=== PATIENT | female | born 1970 | race Caucasian/White ===

== ENCOUNTER 2022-01-23 09:36 | Emergency (ER) | payer OTHER, SELFPAY ==
[2022-01-23] VITALS (9 sets, daily range): BP systolic 132–167; BP diastolic 72–103; PULSE 75–107; RESP 14–20; TEMP 36.6–37.6; O2SAT 97–100; BMI 17.7
--- NOTE | ~2022-01-23 | MR_ITS ---
EXAMINATION: MR CERVICAL SPINE WITHOUT AND WITH CONTRAST CLINICAL INFORMATION: IV drug abuse. Neck pain. COMPARISON: None TECHNIQUE: MRI of the cervical spine was obtained using routine sequences without and following the administration of 5 mL of Gadavist intravenous contrast. FINDINGS: Moderately motion degraded exam. Mild reversal the normal cervical lordosis centered on C4-C5. Mild degenerative anterolistheses of C3 on C4 and C4 on C5. Mild degenerative retrolisthesis of C6 on C7. Advanced degenerative disc disease at C5-C6 and C6-C7. Moderate degenerative disc disease at C3-C4, C4-C5, and C7-T1. Associated mixed Modic type discogenic endplate changes including mild Modic type I discogenic edema from C4-C7. Moderate edema within the right-sided C2-C3 facets. Mild marrow edema within the C6-C7 facets consistent with degenerative stress reaction. No additional suspicious marrow edema. The vertebral body heights are largely maintained. There is circumferential expansion of the epidural space from the level of C1-C5, predominantly in the right lateral aspect. The majority of this expansion enhances although there is a degree of central nonenhancement in the right ventral/lateral aspect of the spinal canal at the level of C1-C2 suggestive of early epidural abscess formation. No demonstrated overt spinal cord signal abnormalities. Moderate soft tissue edema and enhancement in the posterior soft tissues of the neck from the occiput to the level of C4. Limited evaluation of the remainder of the soft tissues of the neck without additional demonstrated abnormalities. The flow voids of the major cervical vessels are maintained. Normal appearance of the cervicomedullary junction and visualized posterior fossa. SPINAL LEVELS: C2-C3: Mild disc-osteophyte complex. There is mild bilateral uncovertebral joint arthropathy. There is moderate bilateral facet joint arthropathy. There is mild bilateral neural foraminal stenosis. There is moderate spinal canal stenosis. C3-C4: Moderate disc-osteophyte complex. There is moderate bilateral uncovertebral joint arthropathy. There is severe right and moderate left facet joint arthropathy. There is moderate right and mild left neural foraminal stenosis. There is moderate spinal canal stenosis. C4-C5: Moderate disc-osteophyte complex. There is severe right and moderate left uncovertebral joint arthropathy. There is moderate bilateral facet joint arthropathy. There is severe right and moderate left neural foraminal stenosis. There is mild spinal canal stenosis. C5-C6: Moderate disc-osteophyte complex. There is severe left and moderate right uncovertebral joint arthropathy. There is moderate left and mild right facet joint arthropathy. There is severe left and moderate right neural foraminal stenosis. There is no spinal canal stenosis. C6-C7: Moderate disc-osteophyte complex. There is moderate bilateral uncovertebral joint arthropathy. There is severe bilateral facet joint arthropathy. There is moderate left worse than right neural foraminal stenosis. There is no spinal canal stenosis. C7-T1: Normal annular contour. There is no uncovertebral joint arthropathy. There is moderate bilateral facet joint arthropathy. There is mild bilateral neural foraminal stenosis. There is no spinal canal stenosis. MR/MR cervical spine wo/w con IMPRESSION: 1. Epidural collection suggestive of abscess formation extending from C1-C5 (most notably in the right ventral/lateral canal at the level of C1-C2). 2. Moderate edema/enhancement within the posterior soft tissues of the neck extending from the occiput to the level of C4. No demonstrated drainable fluid collection within the soft tissues. 3. Moderate multilevel degenerative spondyloarthropathy of the cervical spine as described in detail above. Most notably, multifactorial degenerative changes and epidural expansion leads to moderate spinal canal stenosis at C2-C3 and C3-C4. Mild spinal canal stenosis at C4-C5. Moderate to severe neural foraminal stenoses from C4-C7.
--- NOTE | ~2022-01-23 | XR_ITS ---
EXAMINATION: XR CHEST CLINICAL INFORMATION: Leukocytosis, chills COMPARISON: Chest x-ray on 09/28/2015 TECHNIQUE: 2 views of the chest were obtained. FINDINGS: The cardiac silhouette is normal. There is mild diffuse bronchial wall thickening. There are no areas of consolidation. There are no pleural effusions or pneumothoraces. The bones and soft tissues are unremarkable for the patient's age. XR/XR chest 2V IMPRESSION: Bronchial wall thickening is likely infectious and/or inflammatory in etiology.
[2022-01-23 12:15] LABS: Basophils Absolute Auto 0.1 X10*3/uL (0.0-0.2); Basophils Percent Auto 0.2 % (0-2); Hematocrit 38.2 % (37.0-47.0); Hemoglobin 12.6 g/dl (12.0-16.0); Imm Gran Abs Auto 0.13 X10*3/uL (0.00-0.03); Imm Gran Pct Auto 0.5 % (0.0-0.4); Lymphocytes Absolute Auto 0.4 X10*3/uL (1.2-4.9); Lymphocytes Percent Auto 1.6 % (20-40); MANUAL DIFF FLAG SCAN; Mean Corpuscular Hemoglobin 29.2 pg (27.0-33.0); Mean Corpuscular Volume 88.4 fL (80.0-98.0); Mean Platelet Volume 9.7 fL (9.4-12.3); Monocytes Absolute Auto 0.9 X10*3/uL (0.1-1.2); Monocytes Percent Auto 3.5 % (2-11); Neutrophils Absolute Auto 23.7 x10*3/uL (2.0-8.3); Neutrophils Percent Auto 94.2 % (45-73); Platelet Count 287 X10*3/uL (160-400); Red Blood Count 4.32 X10*6/uL (4.20-5.50); Red Cell Distribution Width 12.6 % (11.0-16.0); SCAN SMEAR FLAG 1; White Blood Count 25.2 X10*3/uL (4.8-10.8)
--- NOTE | 2022-01-23 12:21 | ED_ITS ---
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 No fevers, JAMESON, weakness/numbness/tingling, photophobia of the UE. Patient uses more then I can count bags of heroin and cocaine daily. Last use last evening. She is on methadone. Denies any history of epidural abscess. Denies injecting drugs in her neck. Denies any additional medical history but has not seen a PCP in years. She is on methadone daily and received her dose today. Patient tells me she did move her bed 2 days ago and states I am wondering if I pulled something. <AMRITA Singleton Last Filed: 01/23/22 19:37> Related Data Allergies/adverse reactions: Allergies Allergy/AdvReac Type Severity Reaction Status Date / Time No Known Allergies Allergy Unverified 05/16/20 15:11 <AMRITA Singleton Last Filed: 01/23/22 19:37> Review of Systems Review of Systems: Yes all other systems are reviewed and are negative <AMRITA Singleton Last Filed: 01/23/22 19:37> Constitutional: Constitutional: Reports no additional constitutional complaints, Denies body ache(s), Denies chills, Denies fever(s), Denies headache(s) and Denies weakness <Siria Linda NP - Last Filed: 01/23/22 19:37> Eyes: Eyes: Reports no additional eye complaints and Denies change in vision <Siria Linda [employer] - Last Filed: 01/23/22 19:37> ENT: Reports system reviewed and no additional complaints, except as documented, Denies dizziness, Denies headache(s), Denies nasal congestion, Denies nasal discharge and Reports neck pain <Siria Linda [employer] - Last Filed: 01/23/22 19:37> Cardiovascular: Cardiovascular: Reports no additional cardiovascular complaints, Denies chest pain, Denies leg edema and Denies dyspnea <Siria Linda [employer] - Last Filed: 01/23/22 19:37> Respiratory: Respiratory: Reports no additional respiratory complaints, Denies cough and Denies dyspnea <Siria Linda [employer] - Last Filed: 01/23/22 19:37> Gastrointestinal: Gastrointestinal: Reports no additional gastrointestinal complaints, Denies abdominal pain, Denies diarrhea, Denies nausea and Denies vomiting <Siria Linda [employer] - Last Filed: 01/23/22 19:37> Genitourinary: Genitourinary: Reports no additional female genitourinary complaints and Denies urinary incontinence <Siria Linda [employer] - Last Filed: 01/23/22 19:37> Musculoskeletal: Musculoskeletal: Reports no additional musculoskeletal complaints, Denies back pain, Denies arthralgias, Denies joint swelling, Reports neck pain, Denies numbness and Denies tingling <Siria Linda [employer] - Last Filed: 01/23/22 19:37> Integumentary/Breasts: Skin/Breast: Reports system reviewed and no additional complaints, except as docu and Denies rash <Siria Linda [employer] - Last Filed: 01/23/22 19:37> Neurologic: Reports system reviewed and no additional complaints, except as documented, Denies dizziness, Denies headache(s), Denies numbness, Denies tingling and Denies weakness <Siria Linda NP - Last Filed: 01/23/22 19:37> PMFSH Past Medical History Attestation statement: The following information was validated with the patient. <Siria john NP - Last Filed: 01/23/22 19:37> Source: old records reviewed and nursing notes reviewed <Siria Linda NP - Last Filed: 01/23/22 19:37> Social History Social History: Social History Advance Directives: No Advance Directives Information Provided: No <Siria Linda NP - Last Filed: 01/23/22 19:37> Physical Exam ED Vital Signs: Vital Signs - 24 hr 01/23/22 10:07 01/23/22 12:35 01/23/22 13:34 Temperature 98.7 F 99.6 F Pulse Rate 107 H Respiratory Rate 17 18 16 Blood Pressure 167/103 H Pulse Oximetry 97 01/23/22 14:07 01/23/22 15:51 01/23/22 17:46 Temperature 97.8 F Pulse Rate 75 Respiratory Rate 17 18 16 Blood Pressure 132/73 Pulse Oximetry 98 01/23/22 17:55 01/23/22 18:00 01/23/22 21:38 Temperature 97.8 F Pulse Rate 86 Respiratory Rate 14 16 20 Blood Pressure 150/72 H Pulse Oximetry 100 BMI result Body Mass Index 17.7 <Siria Linda NP - Last Filed: 01/23/22 19:37> Vital Signs - 24 hr 01/23/22 10:07 01/23/22 12:35 01/23/22 13:34 Temperature 98.7 F 99.6 F Pulse Rate 107 H Respiratory Rate 17 18 16 Blood Pressure 167/103 H Pulse Oximetry 97 01/23/22 14:07 01/23/22 15:51 01/23/22 17:46 Temperature 97.8 F Pulse Rate 75 Respiratory Rate 17 18 16 Blood Pressure 132/73 Pulse Oximetry 98 01/23/22 17:55 01/23/22 18:00 01/23/22 21:38 Temperature 97.8 F Pulse Rate 86 Respiratory Rate 14 16 20 Blood Pressure 150/72 H Pulse Oximetry 100 BMI result Body Mass Index 17.7 Patient noted to be hypertensive, tachycardic. <ROZ Boss - Last Filed: 01/23/22 22:18> Appearance: Alert.? Oriented X3.? Patient appears extremely uncomfortable, screaming out, telling me she is in pain. Head: Normocephalic, atraumatic, no step-offs or deformities Eyes: Pupils equal, round and reactive to light.? Neck: Normal inspection.? Neck supple.? CVS: Normal rate pass rhythm likely sinus tachycardia. Pulses normal.? Respiratory: No respiratory distress.? Breath sounds normal.? Abdomen: Soft and nontender.? Skin: Skin warm and dry.? Normal skin color.? Normal skin turgor.? Extremities: No lower extremity edema.? No calf ttp. 5/5 strength to bilateral upper and lower extremities Back: + C-spine tenderness,painfull rom , no CVA tenderness bilaterally Neuro: Oriented X 3.? No motor deficit.? Difficult to obtain a full neurological examination secondary to patient cooperation. <Rhiannon Mas PA - Last Filed: 01/23/22 22:18> Const Other: +screaming in pain, writhing around in the bed, holding her neck <Siria Linda NP - Last Filed: 01/23/22 19:37> General: alert and ill appearing <Siria Linda NP - Last Filed: 01/23/22 19:37> Nutritional Appearance: thin <Siria Linda NP - Last Filed: 01/23/22 19:37> Orientation/consciousness: patient oriented x3 <Siria Linda NP - Last Filed: 01/23/22 19:37> Limitations: no limitations <Siria Linda NP - Last Filed: 01/23/22 19:37> HENIN Head: Yes normal to inspection <Siria Linda NP - Last Filed: 01/23/22 19:37> Ears: hearing grossly normal bilaterally and TM's normal bilaterally <Siria Linda NP - Last Filed: 01/23/22 19:37> General nose exam: Normal external nose present <Siria Linda NP - Last Filed: 01/23/22 19:37> Face and sinus: Yes normal facial exam <Siria Linda NP - Last Filed: 01/23/22 19:37> Mouth: Normal oral and palatal mucosa present <Siria Linda NP - Last Filed: 01/23/22 19:37> Teeth and gingiva: poor dentition (extensive caries) <Siria Linda NP - Last Filed: 01/23/22 19:37> Throat: Yes posterior oropharynx normal, Yes tonsils normal and Yes uvula midline <Siria Linda NP - Last Filed: 01/23/22 19:37> Eyes General: appearance normal, both eyes and all related structures <Siria Linda NP - Last Filed: 01/23/22 19:37> Pupils: Equal, round and reactive pupils present <Siria Linda NP - Last Filed: 01/23/22 19:37> Neck Other: There is no obvious swelling, redness, warmth or abscess seen on the skin There is moderate tenderness to the cervical spine with no palpable step offs or deformities. To the right of the cervical spine there is tenderness to the soft tissue area. There is limited ROM d/t pain especially with flexion and extension of the neck. Negative kernig. Unable to assess brudzinski d/t pain <Siria Linda NP - Last Filed: 01/23/22 19:37> Neck: Yes normal visual inspection <Siria Linda NP - Last Filed: 01/23/22 19:37> Chest Chest palpation & inspection: normal inspection of the chest <Siria Linda NP - Last Filed: 01/23/22 19:37> Resp Effort & Inspection: normal respiratory effort <Siria Linda NP - Last Filed: 01/23/22 19:37> Auscultation: clear to auscultation bilaterally <Siria Linda NP - Last Filed: 01/23/22 19:37> Cardio Rate: regular rate <Siria Linda NP - Last Filed: 01/23/22 19:37> Rhythm: regular rhythm <Siria Linda NP - Last Filed: 01/23/22 19:37> Peripheral pulses: Peripheral pulses 2+ throughout <Siria Linda NP - Last Filed: 01/23/22 19:37> GI Inspection: Yes normal to inspection <Siria Linda NP - Last Filed: 01/23/22 19:37> Palpation (GI): Soft to palpation and nontender <Siria Linda NP - Last Filed: 01/23/22 19:37> General: Yes no CVA tenderness <Siria Linda NP - Last Filed: 01/23/22 19:37> Back/Spine/Pelvis Back: no CVA tenderness <Siria Linda NP - Last Filed: 01/23/22 19:37> Skin General skin exam: no rashes or lesions noted <Siria Linda NP - Last Filed: 01/23/22 19:37> Neuro Other: Patient walk in holding neck, bent over, walking slowly, screaming <Siria Linda NP - Last Filed: 01/23/22 19:37> General: patient oriented x3 and moves all extremities <Siria Linda NP - Last Filed: 01/23/22 19:37> Cranial nerves: Yes CN's II-XII intact bilaterally, Yes Equal, round and reactive pupils present, Yes Bilaterally intact EOM present, Yes Nystagmus not present, Yes Normal facial strength present and Yes Midline tongue present <Siria Linda NP - Last Filed: 01/23/22 19:37> Cognition (Neuro): normal cognition <Siria Linda NP - Last Filed: 01/23/22 19:37> Motor exam (neuro): 5/5 motor strength present throughout <Siria Linda NP - Last Filed: 01/23/22 19:37> Sensory Exam: Normal double simultaneous stimulation for sensation <Siria Linda NP - Last Filed: 01/23/22 19:37> Extrem General: Yes normal to inspection, Yes no pedal edema and Yes no calf tenderness <Siria Linda NP - Last Filed: 01/23/22 19:37> Course Course Course Narrative: 51 yo female with history of IVDA here with neck pain x2 days w/ chills, ?injury but patient unsure. Did have recent heavy lifting at home. On exam no neuro deficits. She is in significant pain with limited ROM of the neck d/t pain. D/w with attending physician (dr Goss). Concern for epidural abscess, consider meningitis, cervical strain. Will obtain labs including blood cultures/lactic acid, CXR, UA, MRI cervical spine. At this time infection is suspected. Antibiotics ordered. May need LP <Siria Linda NP - Last Filed: 01/23/22 19:37> Reevaluation(s) Reevaluation #1: Call from [facility]. Unfortunately, there is delay in patient imaging being reviewed as it needs to be reviewed by a neuro-radiologist. <Siria Linda NP - Last Filed: 01/23/22 19:37> Time: 18:40 <Siria Linda NP - Last Filed: 01/23/22 19:37> Reevaluation #2: Sign out to Kamila COURTNEY pending MRI, CXR, UA and dispo. <Siria Linda NP - Last Filed: 01/23/22 19:37> Sign out to Kamila COURTNEY pending MRI, CXR, UA and dispo. <ROZ Boss - Last Filed: 01/23/22 22:18> Time: 19:30 <Siria Linda NP - Last Filed: 01/23/22 19:37> Reevaluation #3: 2044 Chest x-ray with bronchial wall thickening which could be infectious or inflammatory. MRI of the cervical spine with an epidural collection suggestive of abscess formation extending from C1-C5. There is moderate edema and enhancement within the posterior soft tissue of the neck extending from the occiput to level of C4. These results are concerning for epidural abscess. Patient is being covered with antibiotics she is receiving ceftriaxone vanco. At this time will reach out to hospitals in the area for transfer. 2100 Call [facility], Neurosurgery is close to transfers. Will try [facility]. Patient reporting pain given an additional 4 mg of morphine. She is refusing Dilaudid. 2108 Patient accepted at [facility] in [place] will be going to the emergency department to the service of . Where Neurosurgery will see patient. I educated patient on plan, she is agreeable to transfer. I a told her that the reason she is being transferred is for higher level of care and she needs Neurosurgery. Comfortable with plan. <ROZ Boss - Last Filed: 01/23/22 22:18> Medical Decision Making MDM Narrative Medical decision making narrative: meningitis, epidural abscess, cervical strain <Siria Linda NP - Last Filed: 01/23/22 19:37> Medical Records Medical records reviewed: Yes I reviewed the patient's medical records. <Siria Linda NP - Last Filed: 01/23/22 19:37> Lab Data Lab results reviewed: Yes I reviewed the patient's lab results. <Siria Linda NP - Last Filed: 01/23/22 19:37> Result diagrams: : 01/23/22 12:08 01/23/22 12:08 <Siria Linda NP - Last Filed: 01/23/22 19:37> Labs: Lab Results 01/23/22 01/23/22 01/23/22 Range/Units 12:07 12:08 12:08 WBC 25.2 H (4.8-10.8) X10*3/uL RBC 4.32 (4.20-5.50) X10*6/uL Hgb 12.6 (12.0-16.0) g/dl Hct 38.2 (37.0-47.0) % MCV 88.4 (80.0-98.0) fL MCH 29.2 (27.0-33.0) pg MCHC 33.0 (31.0-35.0) g/dl RDW 12.6 (11.0-16.0) % Plt Count 287 (160-400) X10*3/uL MPV 9.7 (9.4-12.3) fL Immature Gran % (Auto) 0.5 H (0.0-0.4) % Neut % (Auto) 94.2 H (45-73) % Lymph % (Auto) 1.6 L (20-40) % Clarke % (Auto) 3.5 (2-11) % Eos % (Auto) 0.0 (0-4) % Baso % (Auto) 0.2 (0-2) % Lymph # (Auto) 0.4 L (1.2-4.9) X10*3/uL Clarke # (Auto) 0.9 (0.1-1.2) X10*3/uL Eos # (Auto) 0.0 (0.0-0.4) X10*3/uL Baso # (Auto) 0.1 (0.0-0.2) X10*3/uL Abs Immat Gran (auto) 0.13 H (0.00-0.03) X10*3/uL Absolute Neuts (auto) 23.7 H (2.0-8.3) x10*3/uL Absolute Nucleated RBC 0.000 (0.0-0.012) X10*3/uL Nucleated RBC % (auto) 0.0 (0.0-0.2) /100WBC Smear Tech's Comments VERIFIED PT 12.9 (9.9-13.0) SEC INR 1.1 (0.9-1.1) Sodium (135-145) mmol/L Potassium (3.3-5.1) mmol/L Chloride (96-108) mmol/L Carbon Dioxide (22-29) mmol/L Anion Gap (12-20) BUN (9-16) mg/dL Creatinine (0.5-1.4) mg/dL Estim Creat Clear Calc Estimated GFR Random Glucose (60-115) mg/dL Lactic Acid 1.6 (0.5-2.0) mmol/L Calcium (8.4-10.2) mg/dL Total Bilirubin (0.0-1.0) mg/dL Direct Bilirubin (0.0-0.5) mg/dL AST (5-31) U/L ALT (0-31) U/L Alkaline Phosphatase (39-117) U/L Total Protein (6.5-8.0) g/dL Albumin (3.5-5.0) g/dL 01/23/22 Range/Units 12:08 WBC (4.8-10.8) X10*3/uL RBC (4.20-5.50) X10*6/uL Hgb (12.0-16.0) g/dl Hct (37.0-47.0) % MCV (80.0-98.0) fL MCH (27.0-33.0) pg MCHC (31.0-35.0) g/dl RDW (11.0-16.0) % Plt Count (160-400) X10*3/uL MPV (9.4-12.3) fL Immature Gran % (Auto) (0.0-0.4) % Neut % (Auto) (45-73) % Lymph % (Auto) (20-40) % Clarke % (Auto) (2-11) % Eos % (Auto) (0-4) % Baso % (Auto) (0-2) % Lymph # (Auto) (1.2-4.9) X10*3/uL Clarke # (Auto) (0.1-1.2) X10*3/uL Eos # (Auto) (0.0-0.4) X10*3/uL Baso # (Auto) (0.0-0.2) X10*3/uL Abs Immat Gran (auto) (0.00-0.03) X10*3/uL Absolute Neuts (auto) (2.0-8.3) x10*3/uL Absolute Nucleated RBC (0.0-0.012) X10*3/uL Nucleated RBC % (auto) (0.0-0.2) /100WBC Smear Tech's Comments PT (9.9-13.0) SEC INR (0.9-1.1) Sodium 133 L (135-145) mmol/L Potassium 4.4 (3.3-5.1) mmol/L Chloride 99 (96-108) mmol/L Carbon Dioxide 24 (22-29) mmol/L Anion Gap 14 (12-20) BUN 16 (9-16) mg/dL Creatinine 0.88 (0.5-1.4) mg/dL Estim Creat Clear Calc 58.2 Estimated GFR > 60 Random Glucose 191 H (60-115) mg/dL Lactic Acid (0.5-2.0) mmol/L Calcium 9.7 (8.4-10.2) mg/dL Total Bilirubin 0.8 (0.0-1.0) mg/dL Direct Bilirubin 0.3 (0.0-0.5) mg/dL AST 18 (5-31) U/L ALT 16 (0-31) U/L Alkaline Phosphatase 95 (39-117) U/L Total Protein 7.6 (6.5-8.0) g/dL Albumin 4.1 (3.5-5.0) g/dL <Siria Linda, [employer] - Last Filed: 01/23/22 19:37> Lab Results 01/23/22 01/23/22 01/23/22 Range/Units 12:07 12:08 12:08 WBC 25.2 H (4.8-10.8) X10*3/uL RBC 4.32 (4.20-5.50) X10*6/uL Hgb 12.6 (12.0-16.0) g/dl Hct 38.2 (37.0-47.0) % MCV 88.4 (80.0-98.0) fL MCH 29.2 (27.0-33.0) pg MCHC 33.0 (31.0-35.0) g/dl RDW 12.6 (11.0-16.0) % Plt Count 287 (160-400) X10*3/uL MPV 9.7 (9.4-12.3) fL Immature Gran % (Auto) 0.5 H (0.0-0.4) % Neut % (Auto) 94.2 H (45-73) % Lymph % (Auto) 1.6 L (20-40) % Clarke % (Auto) 3.5 (2-11) % Eos % (Auto) 0.0 (0-4) % Baso % (Auto) 0.2 (0-2) % Lymph # (Auto) 0.4 L (1.2-4.9) X10*3/uL Clarke # (Auto) 0.9 (0.1-1.2) X10*3/uL Eos # (Auto) 0.0 (0.0-0.4) X10*3/uL Baso # (Auto) 0.1 (0.0-0.2) X10*3/uL Abs Immat Gran (auto) 0.13 H (0.00-0.03) X10*3/uL Absolute Neuts (auto) 23.7 H (2.0-8.3) x10*3/uL Absolute Nucleated RBC 0.000 (0.0-0.012) X10*3/uL Nucleated RBC % (auto) 0.0 (0.0-0.2) /100WBC Smear Tech's Comments VERIFIED PT 12.9 (9.9-13.0) SEC INR 1.1 (0.9-1.1) Sodium (135-145) mmol/L Potassium (3.3-5.1) mmol/L Chloride (96-108) mmol/L Carbon Dioxide (22-29) mmol/L Anion Gap (12-20) BUN (9-16) mg/dL Creatinine (0.5-1.4) mg/dL Estim Creat Clear Calc Estimated GFR Random Glucose (60-115) mg/dL Lactic Acid 1.6 (0.5-2.0) mmol/L Calcium (8.4-10.2) mg/dL Total Bilirubin (0.0-1.0) mg/dL Direct Bilirubin (0.0-0.5) mg/dL AST (5-31) U/L ALT (0-31) U/L Alkaline Phosphatase (39-117) U/L Total Protein (6.5-8.0) g/dL Albumin (3.5-5.0) g/dL / Range/Units 12:08 WBC (4.8-10.8) X10*3/uL RBC (4.20-5.50) X10*6/uL Hgb (12.0-16.0) g/dl Hct (37.0-47.0) % MCV (80.0-98.0) fL MCH (27.0-33.0) pg MCHC (31.0-35.0) g/dl RDW (11.0-16.0) % Plt Count (160-400) X10*3/uL MPV (9.4-12.3) fL Immature Gran % (Auto) (0.0-0.4) % Neut % (Auto) (45-73) % Lymph % (Auto) (20-40) % Clarke % (Auto) (2-11) % Eos % (Auto) (0-4) % Baso % (Auto) (0-2) % Lymph # (Auto) (1.2-4.9) X10*3/uL Clarke # (Auto) (0.1-1.2) X10*3/uL Eos # (Auto) (0.0-0.4) X10*3/uL Baso # (Auto) (0.0-0.2) X10*3/uL Abs Immat Gran (auto) (0.00-0.03) X10*3/uL Absolute Neuts (auto) (2.0-8.3) x10*3/uL Absolute Nucleated RBC (0.0-0.012) X10*3/uL Nucleated RBC % (auto) (0.0-0.2) /100WBC Smear Tech's Comments PT (9.9-13.0) SEC INR (0.9-1.1) Sodium 133 L (135-145) mmol/L Potassium 4.4 (3.3-5.1) mmol/L Chloride 99 (96-108) mmol/L Carbon Dioxide 24 (22-29) mmol/L Anion Gap 14 (12-20) BUN 16 (9-16) mg/dL Creatinine 0.88 (0.5-1.4) mg/dL Estim Creat Clear Calc 58.2 Estimated GFR > 60 Random Glucose 191 H (60-115) mg/dL Lactic Acid (0.5-2.0) mmol/L Calcium 9.7 (8.4-10.2) mg/dL Total Bilirubin 0.8 (0.0-1.0) mg/dL Direct Bilirubin 0.3 (0.0-0.5) mg/dL AST 18 (5-31) U/L ALT 16 (0-31) U/L Alkaline Phosphatase 95 (39-117) U/L Total Protein 7.6 (6.5-8.0) g/dL Albumin 4.1 (3.5-5.0) g/dL <ROZ Boss - Last Filed: 01/23/22 22:18> Critical Care Time Critical Care Time Critical Care Time: Yes <ROZ Boss Last Filed: 01/23/22 22:18> Total Critical Care Time: 60 <ROZ Boss - Last Filed: 01/23/22 22:18> Attestation: I attest to this time spent taking care of the patient, obtaining history, physical, reviewing labs, imaging, speaking to my attending, speaking to specialist. <ROZ Boss - Last Filed: 01/23/22 22:18> Discharge Plan Discharge Clinical Impression: Epidural abscess, Acute neck pain, Leukocytosis <Siria Linda NP - Last Filed: 01/23/22 19:37> Patient Disposition: [facility] <Siria Linda NP - Last Filed: 01/23/22 19:37> Additional Instructions: [facility] in [place] Emergency Department. . <Siria Linda NP - Last Filed: 01/23/22 19:37>
[2022-01-23 12:22] LABS: INTERNATIONAL NORM RATIO 1.1 (0.9-1.1); Prothrombin Time 12.9 SEC (9.9-13.0)
[2022-01-23 12:27] LABS: Lactic Acid 1.6 mmol/L (0.5-2.0)
[2022-01-23] MEDS: Ketorolac Tromethamine 30 MG/ML VIAL IVPUSH (12:35)
[2022-01-23] MEDS: ondansetron HCL 4 MG/2 ML VIAL IVPUSH (12:35)
[2022-01-23] MEDS: Morphine Sulfate 4 MG/ML CARTRIDGE IVPUSH ×3 (12:35→21:38)
[2022-01-23 12:37] LABS: SLIDE REVIEW VERIFIED
[2022-01-23 12:38] LABS: Alanine Aminotransferase 16 U/L (0-31); Albumin Level 4.1 g/dL (3.5-5.0); Alkaline Phosphatase 95 U/L (39-117); Anion Gap 14 (12-20); Aspartate Amino Transferase 18 U/L (5-31); Bilirubin Direct 0.3 mg/dL (0.0-0.5); Bilirubin Total 0.8 mg/dL (0.0-1.0); Blood Urea Nitrogen 16 mg/dL (9-16); Calcium 9.7 mg/dL (8.4-10.2); Carbon Dioxide 24 mmol/L (22-29); Chloride 99 mmol/L (96-108); Creatinine Clr Calc Pharmacy 58.2; Estimated Glomerular Filt Rate > 60; Glucose Random 191 mg/dL (60-115); Potassium 4.4 mmol/L (3.3-5.1); Sodium 133 mmol/L (135-145); Total Protein 7.6 g/dL (6.5-8.0)
[2022-01-23] MEDS: diazePAM 2 MG TABLET PO ×2 (12:45→17:46)
[2022-01-23] MEDS: cefTRIAXone sodium 1 GM in 0.9 % Sodium Chloride 50 ML IV (12:56)
[2022-01-23] MEDS: vancomycin HCL 1,000 MG in 0.9 % Sodium Chloride 250 ML 270 MG IV (14:01)
[2022-01-23] MEDS: HYDROmorphone HCl 1 MG/ML SYRINGE IVPUSH (15:51)
--- NOTE | 2022-01-23 21:52 | PC.NURSE ---
Called [facility] Tx line for Ines Jordan, for a Neuro transfer they are closed to transfers, Called Chanel awaiting a call back.
--- NOTE | 2022-01-23 22:48 | PC.NURSE ---
RN to RN report given to Paulette at [facility] in [place], [place]. Preparing to transfer patient. Awaiting EMS to transfer patient. Blood Culture positive for gram positive cocci & clusters. Provider (Jonathan Mas) notified.
[2022-01-23 23:18] LABS: COVID-19 Test Negative (Negative)
[2022-01-24] VITALS: BP 148/78; PULSE 98; RESP 20; TEMP 36.6; O2SAT 97
--- NOTE | 2022-01-24 | PC.NURSE ---
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 I received multiple calls regarding tx from dispatch, delaying care due to late transport. Nestor spoke to her regarding tx. They Arrived at [phone] to take patient
[2022-01-24 00:17] VITALS: RESP 20
[2022-01-24] MEDS: Morphine Sulfate 4 MG/ML CARTRIDGE IVPUSH (00:17)
--- NOTE | 2022-01-24 00:22 | PC.NURSE ---
2nd blood culture result: gram positive cocci and clusters.
== END 2022-01-24 00:35 | disposition short-term general hospital (02) ==
PROVIDERS: Nurse Practitioner Family; Physician Assistant; Emergency Provider Emergency Medicine Emergency Medical Services; PCP Internal Medicine
DX: G06.1 Intraspinal abscess and granuloma (principal); B95.62 Methicillin resistant Staphylococcus aureus infection as the cause of diseases classified elsewhere; M54.2 Cervicalgia; D72.829 Elevated white blood cell count, unspecified; R00.0 Tachycardia, unspecified; I10 Essential (primary) hypertension; F11.20 Opioid dependence, uncomplicated; F19.10 Other psychoactive substance abuse, uncomplicated; Z20.822 Contact with and (suspected) exposure to COVID-19
CPT/HCPCS: 36415; 71046; 72156; 80048; 80076; 83605; 85025; 85610; 87040; 87077; 87147; 87186; 87205; 87635; 96365; 96374; 96375; 96376; 99285; 99291; A9585; J0696; J1170; J1885; J2270; J2405; J3370

== ENCOUNTER 2022-01-29 20:51 | Inpatient (IN) | payer OTHER, SELFPAY ==
--- NOTE | ~2022-01-29 | IR_ITS ---
PROCEDURE: IR INSERTION OF PICC CLINICAL INFORMATION: Needs long-term antibiotics for sepsis/osteomyelitis. COMPARISON: None TECHNIQUE: Following explaining ultrasound and fluoroscopy-guided placement of PICC catheter procedure, benefits and risk, a written consent was obtained. Patient was placed supine on fluoroscopy table in angiography suite. Preliminary ultrasound imaging through the right arm was obtained. An optimal site was selected and marked on the skin. The entire right arm up to elbow was cleaned and draped in usual sterile manner. A tourniquet was applied above the right arm. 1% lidocaine was injected at marked site. Under sterile ultrasound guidance a single wall needle was advanced and right basilic vein was accessed. After observing venous return a thin guidewire was advanced and placed in SVC and needle withdrawn. The tourniquet was removed as well. A 5 Argentine dilator sheath was advanced over the guidewire. Single-lumen PICC catheter was then sized and inserted over the guidewire after removing the dilator. The peel-away sheath was removed as catheter was advanced. The tip of the catheter lies within the SVC. A single image was obtained. The catheter was flushed with heparinized saline. Simple dressing applied at the puncture site. All elements of maximal sterile barrier technique followed including use of cap, mask, sterile gown, sterile gloves, a sterile full body drape and hand hygiene. Also followed skin preparation with 2% chlorhexidine for cutaneous antisepsis, and sterile ultrasound preparation with sterile gel and probe cover when applicable. FINDINGS: On ultrasound imaging there is a widely patent basilic and cephalic veins. Approximately 42 cm 5 Argentine single-lumen PICC catheter was placed in mid SVC without immediate complications. IR/IR cvc insert peripheral IMPRESSION: Successful ultrasound fluoroscopy-guided placement of a 5 Argentine PICC catheter with its tip in mid SVC. The catheter is ready for use.
[2022-01-29 21:10] VITALS: BP 140/69; PULSE 69; RESP 16; TEMP 37.2; O2SAT 99
[2022-01-29 21:14] VITALS: BMI 17.0
--- NOTE | 2022-01-29 23:46 | P.HPHOSP_ITS ---
History of Present Illness Date of Service: 01/29/22 Chief Complaint: Bacteremia 51-year-old female with past medical history of polysubstance abuse who initially presented to [facility] on 01/23 for neck pain found to have epidural abscess at that time. Patient was transferred same [facility] possible neurosurgical intervention given her epidural abscess. Patient returns as a direct admission to [facility] from [facility] after workup. Per discharge summary from [facility], workup showed positive blood cultures for MRSA, blood cultures from 01/26 negative to date. TTE negative for infective endocarditis, patient started on vancomycin and was transferred back to [facility]. On examining the patient, patient is awake alert, reports significant neck pain otherwise denies any headache, no change in vision, no weakness numbness or tingling, no abdominal pain nausea or vomiting, no chest pain shortness of breath or cough. No urinary symptoms and no lower extremity edema Vitals on arrival reviewed seen within normal limit Patient restarted on vancomycin, pain control and admitted directly to [facility] for further management Review of Systems Review of Systems: Yes all other systems are reviewed and are negative [facility] Medical History (Updated 01/30/22 @ 06:58 by Dayanna Sommer MD) Hypertension Methadone dependence Surgical History (Updated 01/30/22 @ 06:58 by Dayanna Sommer MD) History of repair of congenital cleft palate Social History Household Members: None Housing: Apartment Do you presently have visiting nurse or other home services: No Patient Tobacco Use Status: Former Tobacco user Quit Date: 1week ago Tobacco use type: Cigarette Cigarettes Per Day: 5 Smoked in Last 30 Days: Yes e-Cigarette/Vaping Use: Former Use Patient Interested in Nicotine Replacement: No Substance Use Type: Crack/Cocaine, Heroin, IV Drugs and Marijuana Substance Use Type Other:: on methadone Substance Use Frequency: Chronic Longstanding Last Used Substance: Days (ago) Last Used Substance Other:: 5 days ago Currently Displaying Signs/Symptoms of Drug Intoxication Withdrawal: No Any prior treatment program specific to substance use: Yes (methadone) Have you been hit, kicked, punched, or otherwise hurt by someone within the past year? If so, by whom?: No Do you feel safe in your current relationship?: No Current Relationship Is there a partner from a previous relationship who is making you feel unsafe now?: No Are you made to feel afraid or neglected: No Spiritual Healthcare Practices: spiritual Advance Directives: No Advance Directives Information Provided: No Advance Directives on File: No Do you have thoughts of harming others: None Do you have a plan to hurt others: No Plan Recently lost weight without trying: No Eating poorly because of decreased appetite: Yes Nutrition Risks: No Nutritional Risk Patient : No : No Poor oral hygiene: No Meds Allergies Allergy/AdvReac Type Severity Reaction Status Date / Time No Known Allergies Allergy Unverified 05/16/20 15:11 Active Medications: Current Medications Acetaminophen (Acetaminophen 325 Mg Tablet) 650 mg PO Q6H PRN PRN Reason: Pain, Mild (Pain Scale 1-3) Docusate Sodium (Docusate Sodium 100 Mg Capsule) 100 mg PO DAILY PRN PRN Reason: Constipation Enoxaparin Sodium (Enoxaparin Sodium 40 Mg/0.4 Ml Syringe) 40 mg SUBCUT Q24H [facility] Melatonin (Melatonin 3 Mg Tablet) 6 mg PO BEDTIME PRN PRN Reason: Insomnia Morphine Sulfate (Morphine Sulfate Immed Release 15 Mg Tablet) 15 mg PO Q4H PRN PRN Reason: Pain, Severe (Pain Scale 7-10) Ondansetron HCl (Ondansetron Hcl 4 Mg/2 Ml Vial) 4 mg IVPUSH Q8H PRN PRN Reason: Nausea and Vomiting Pregabalin (Pregabalin 50 Mg Capsule) 50 mg PO BEDTIME [facility] Physical Exam Vital Signs and Narrative: Vital Signs: Last Vital Signs Temp 98.9 F 01/29/22 21:10 Pulse 69 01/29/22 21:10 Resp 16 01/29/22 21:10 BP 140/69 H 01/29/22 21:10 Pulse Ox 99 01/29/22 21:10 BMI result Body Mass Index 17.0 Const: General: cooperative and no acute distress Orientatio n/consciousness: patient oriented x3 Eyes: General: appearance normal, both eyes and all related structures Pupils: Equal, round and reactive pupils present Resp: Effort & Inspection: normal respiratory effort Auscultation: clear to auscultation bilaterally Cardio: Rate: regular rate Rhythm: regular rhythm GI: Palpation (GI): Soft to palpation Auscultation: normal bowel sounds Skin: General skin exam: no rashes or lesions noted Neuro: General: patient oriented x3 Cranial nerves: Yes Equal, round and reactive pupils present Cognition (Neuro): normal cognition Extrem: General: Yes normal to inspection and Yes no pedal edema Results Labs CBC and Chem 7: 01/30/22 05:58 01/30/22 05:58 Assessment and Plan (1) Polysubstance abuse: Status: Acute (2) MRSA bacteremia: Status: Acute (3) Epidural abscess: Status: Acute (4) Methadone dependence: Status: Acute Plan 51-year-old female with past medical history of polysubstance abuse who was initially transferred to [facility] on 01/24 for epidural abscess returns to the [facility] as direct admission for management of MRSA bacteremia and epidural abscess # epidural abscess - likely secondary to IV drug use - evaluated at [facility] by Neurosurgery who felt that she is not a neurosurgical candidate - continue vancomycin - cultures on 01/26 at [facility] negative today # MRSA bacteremia - per above - due to IV drug use - continue vancomycin - infectious disease consulted # methadone dependence - continue methadone - care team consulted DVT prophylaxis: Lovenox Quality Stroke Does the patient have a stroke diagnosis?: No VTE Prior VTE?: No VTE Risk Level:: Medical - moderate - high VTE Device Contraindication: Treatment Not Indicated VTE Drug Contraindication: N/A - Med Ordered
[2022-01-29 23:54] VITALS: BP 161/86; PULSE 95; RESP 18; TEMP 37.1; O2SAT 95
[2022-01-29] MEDS: amLODIPine Besylate 10 MG TABLET PO (23:57)
[2022-01-29] MEDS: Ketorolac Tromethamine 15 MG/ML VIAL IVPUSH (23:57)
[2022-01-30] MEDS: vancomycin HCL 750 MG in 0.9 % Sodium Chloride 250 ML 265 MG IV (00:25)
[2022-01-30] MEDS: Pregabalin 50 MG CAPSULE PO ×2 (00:25→20:47)
[2022-01-30] MEDS: 0.9 % Sodium Chloride Flush 3 ML SYRINGE IVFLUSH ×3 (00:34→16:58)
[2022-01-30] MEDS: Morphine Sulfate Immed Release 15 MG TABLET PO (02:52)
[2022-01-30 03:34] VITALS: BP 142/74; PULSE 69; RESP 18; TEMP 37.2; O2SAT 97
[2022-01-30] MEDS: Acetaminophen 325 MG TABLET 650 MG PO ×2 (03:53→20:36)
[2022-01-30] MEDS: Ketorolac Tromethamine 15 MG/ML VIAL IVPUSH ×2 (05:58→13:05)
[2022-01-30 06:03] LABS: MANUAL DIFF FLAG NO
[2022-01-30 06:08] LABS: Basophils Absolute Auto 0.1 X10*3/uL (0.0-0.2); Basophils Percent Auto 0.7 % (0-2); Eosinophils Absolute Auto 0.3 X10*3/uL (0.0-0.4); Eosinophils Percent Auto 3.9 % (0-4); Hemoglobin 11.3 g/dl (12.0-16.0); Imm Gran Abs Auto 0.04 X10*3/uL (0.00-0.03); Imm Gran Pct Auto 0.6 % (0.0-0.4); Lymphocytes Absolute Auto 2.3 X10*3/uL (1.2-4.9); Lymphocytes Percent Auto 32.1 % (20-40); Mean Corpuscular HGB Conc 32.3 g/dl (31.0-35.0); Mean Corpuscular Hemoglobin 28.5 pg (27.0-33.0); Mean Corpuscular Volume 88.2 fL (80.0-98.0); Monocytes Absolute Auto 0.6 X10*3/uL (0.1-1.2); Monocytes Percent Auto 8.3 % (2-11); Neutrophils Absolute Auto 3.9 x10*3/uL (2.0-8.3); Neutrophils Percent Auto 54.4 % (45-73); Platelet Count 442 X10*3/uL (160-400); Red Blood Count 3.97 X10*6/uL (4.20-5.50); Red Cell Distribution Width 12.6 % (11.0-16.0); White Blood Count 7.2 X10*3/uL (4.8-10.8)
[2022-01-30 06:25] LABS: Anion Gap 13 (12-20); Blood Urea Nitrogen 13 mg/dL (9-16); Calcium 9.3 mg/dL (8.4-10.2); Carbon Dioxide 29 mmol/L (22-29); Chloride 100 mmol/L (96-108); Creatinine Clr Calc Pharmacy 75.8; Estimated Glomerular Filt Rate > 60; Glucose Random 119 mg/dL (60-115); Potassium 4.5 mmol/L (3.3-5.1); Sodium 137 mmol/L (135-145)
--- NOTE | 2022-01-30 07:49 | PHA.PROG ---
Admission Date/Time: January 29, 2022 20:51 Indication: BACTEREMIA Weight in k kg Adjusted body weight in Kg: N\A [place] body weight in Kg: N\A Obesity Dosing Indication % IBW: Serum Creatinine - Last 168 Hours 01/30/22 05:58 Creatinine 0.65 Estimated CrCl and GFR - Last 168 Hours 01/30/22 05:58 Estim Creat Clear Calc 75.8 Estimated GFR > 60 Vancomycin Loading Dose: 1000MG (GIVEN THE SECOND DOSE) Current Vancomycin Dosing Regimen: 750MG Q12H Vancomycin Monitoring using AUC goal of 400 - 600 range with trough as surrogate marker: 14.3 Date and Time for next Vancomycin Level to be drawn: 01/31/22 2 10:00 Pharmacist Comments on Vancomycin Plan: loading dose given 12 hours after 1st dose since there was no load Vancomycin dosing will take advantage of [employer] as a clinical decision support tool that uses Bayesian modeling to calculate individual patient's pharmacokinetic parameters and forecast the patient's drug concentration time course with the target goal AUC 24 range of 400 - 600 mg/L/hr.
[2022-01-30 07:57] VITALS: BP 126/66; PULSE 74; RESP 16; TEMP 36.2; O2SAT 94
--- NOTE | 2022-01-30 08:59 | PM.EVENT ---
Event Note Date of Service: 01/30/22 Event Note: Order placed for methadone 115mg daily, start this am. dose has been verified, and last received 01/29/22.
[2022-01-30] MEDS: amLODIPine Besylate 10 MG TABLET PO (09:42)
[2022-01-30] MEDS: methADONE HCl 20 MG/2 ML ORAL.CONC 115 MG PO (09:43)
[2022-01-30] MEDS: Docusate Sodium 100 MG CAPSULE PO (09:52)
[2022-01-30 11:35] VITALS: BP 133/71; PULSE 91; RESP 18; TEMP 37.1; O2SAT 96
[2022-01-30 12:19] VITALS: BMI 17.0
[2022-01-30] MEDS: vancomycin HCL 1,000 MG in 0.9 % Sodium Chloride 250 ML 270 MG IV (13:06)
--- NOTE | 2022-01-30 13:10 | P.CNID_ITS ---
History of Present Illness Data of Consult Service Date: 01/30/22 Requesting physician: Kimberley Alston Primary Care Provider: Unknown Physician HPI Reason for consult: cervical epidural abscess She reports to hospital initially with neck pain and found to have MRSA bacteremia as well as cervical abscess C1-C5. She injects IV drugs but denies neck injection. She was transferred to [facility] in [facility] and found to not be a surgical candidate. She has negative blood cultures 01/26. Review of Systems Review of Systems: Yes all other systems are reviewed and are negative [facility] Past Medical History Medical History Hypertension Methadone dependence Surgical History Surgical History History of repair of congenital cleft palate Social History Social History Household Members: None Housing: Apartment Do you presently have visiting nurse or other home services: No Patient Tobacco Use Status: Former Tobacco user Quit Date: 1week ago Tobacco use type: Cigarette Cigarettes Per Day: 5 Smoked in Last 30 Days: Yes e-Cigarette/Vaping Use: Former Use Patient Interested in Nicotine Replacement: No Substance Use Type: Crack/Cocaine, Heroin, IV Drugs and Marijuana Substance Use Type Other:: on methadone Substance Use Frequency: Chronic Longstanding Last Used Substance: Days (ago) Last Used Substance Other:: 5 days ago Currently Displaying Signs/Symptoms of Drug Intoxication Withdrawal: No Any prior treatment program specific to substance use: Yes (methadone) Have you been hit, kicked, punched, or otherwise hurt by someone within the past year? If so, by whom?: No Do you feel safe in your current relationship?: No Current Relationship Is there a partner from a previous relationship who is making you feel unsafe now?: No Are you made to feel afraid or neglected: No Spiritual Healthcare Practices: spiritual Advance Directives: No Advance Directives Information Provided: No Advance Directives on File: No Do you have thoughts of harming others: None Do you have a plan to hurt others: No Plan Recently lost weight without trying: No Eating poorly because of decreased appetite: Yes Nutrition Risks: No Nutritional Risk Patient : No : No Poor oral hygiene: No Meds Allergies Allergy/AdvReac Type Severity Reaction Status Date / Time No Known Allergies Allergy Unverified 05/16/20 15:11 Active Medications: Current Medications Acetaminophen (Acetaminophen 325 Mg Tablet) 650 mg PO Q6H PRN PRN Reason: Pain, Mild (Pain Scale 1-3) Last Admin: 01/30/22 03:53 Dose: 650 mg Documented by: Amlodipine Besylate (Amlodipine Besylate 10 Mg Tablet) 10 mg PO DAILY [facility]; Protocol Last Admin: 01/30/22 09:42 Dose: 10 mg Documented by: Docusate Sodium (Docusate Sodium 100 Mg Capsule) 100 mg PO DAILY PRN PRN Reason: Constipation Last Admin: 01/30/22 09:52 Dose: 100 mg Documented by: Enoxaparin Sodium (Enoxaparin Sodium 40 Mg/0.4 Ml Syringe) 40 mg SUBCUT Q24H [facility] Last Admin: 01/30/22 00:35 Dose: Not Given Documented by: Vancomycin HCl 750 mg/ Sodium (Chloride) 265 mls @ 265 mls/hr IV Q12H [facility] Vancomycin HCl 1,000 mg/ (Sodium Chloride) 270 mls @ 270 mls/hr IV ONCE@1200 [facility] Last Admin: 01/30/22 13:06 Dose: 270 mls/hr Documented by: Melatonin (Melatonin 3 Mg Tablet) 6 mg PO BEDTIME PRN PRN Reason: Insomnia Methadone HCl (Methadone Hcl 20 Mg/2 Ml Oral.Conc) 115 mg PO DAILY [facility] Last Admin: 01/30/22 09:43 Dose: 115 mg Documented by: Morphine Sulfate (Morphine Sulfate Immed Release 15 Mg Tablet) 15 mg PO Q4H PRN PRN Reason: Pain, Severe (Pain Scale 7-10) Last Admin: 01/30/22 02:52 Dose: 15 mg Documented by: Ondansetron HCl (Ondansetron Hcl 4 Mg/2 Ml Vial) 4 mg IVPUSH Q8H PRN PRN Reason: Nausea and Vomiting Pharmacy Consult (Consult Rx Vancomycin Dosing) 1 each MISCELLANE DAILY PRN PRN Reason: Consult order Polyethylene Glycol (Polyethylene Glycol 3350 17 Gm Powd.Pack) 17 gm PO DAILY PRN PRN Reason: Constipation Pregabalin (Pregabalin 50 Mg Capsule) 50 mg PO BEDTIME [facility] Last Admin: 01/30/22 00:25 Dose: 50 mg Documented by: Sodium Chloride (0.9 % Sodium Chloride Flush 3 Ml Syringe) 3 ml IVFLUSH QSHIFT [facility] Last Admin: 01/30/22 09:44 Dose: 3 ml Documented by: Home Medications Medication Instructions Recorded Confirmed Last Taken Type methadone 10 mg/mL oral concentrate 115 mg PO DAILY 01/30/22 01/30/22 01/29/22 History Physical Exam Vital Signs: Vital Signs: Last Vital Signs Temp 98.7 F 01/30/22 11:35 Pulse 91 01/30/22 11:35 Resp 18 01/30/22 11:35 BP 133/71 01/30/22 11:35 Pulse Ox 96 01/30/22 11:35 BMI result Body Mass Index 17.0 Const: General: cooperative Eyes: General: appearance normal, both eyes and all related structures Pupils: Equal, round and reactive pupils present Resp: Effort & Inspection: normal respiratory effort Cardio: Rate: regular rate Rhythm: regular rhythm GI: Palpation (GI): Soft to palpation and nontender Skin: General skin exam: no rashes or lesions noted Neuro: Cranial nerves: Yes Equal, round and reactive pupils present Extrem: Other: neck pain Results Labs CBC & Chem 7: 01/30/22 05:58 01/30/22 05:58 Labs: Short CBC 01/30/22 Range/Units 05:58 WBC 7.2 (4.8-10.8) X10*3/uL Hgb 11.3 L (12.0-16.0) g/dl Hct 35.0 L (37.0-47.0) % Plt Count 442 H D (160-400) X10*3/uL BMP 01/30/22 05:58 Sodium 137 Potassium 4.5 Chloride 100 Carbon Dioxide 29 BUN 13 Creatinine 0.65 Calcium 9.3 Assessment and Plan (1) MRSA bacteremia: Status: Acute This is skin source ?MRSA from IVDU There is no endocarditis reported Abscess apparently doesnt need neurosurgical drainage. (2) Epidural abscess: Status: Acute Plan Would give Vancomycin likely 6-8 weeks IV,levels around 15-20,AUC measurement PICC line and placement ?[facility]
--- NOTE | 2022-01-30 13:50 | PM.NEUROCN ---
History of Present Illness Data of Consult Service Date: 01/30/22 Primary Care Provider: Unknown Physician HPI Reason for consult: Cervical epidural abscess with left hand numbness Mrs. 50-year-old woman with a history of substance abuse who has had MRSA bacteremia and was found to have a cervical epidural abscess about a week ago and is on IV antibiotics for it. 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 She is alert and oriented her neck pain is improving. Earlier today she felt some numbness in the left hand and felt that it wasn't working quite right. I was asked to evaluate her. Review of Systems Review of Systems: Yes all other systems are reviewed and are negative [facility] Past Medical History Medical History Hypertension Methadone dependence Surgical History Surgical History History of repair of congenital cleft palate Social History Social History Household Members: None Housing: Apartment Do you presently have visiting nurse or other home services: No Patient Tobacco Use Status: Former Tobacco user Quit Date: 1week ago Tobacco use type: Cigarette Cigarettes Per Day: 5 Smoked in Last 30 Days: Yes e-Cigarette/Vaping Use: Former Use Patient Interested in Nicotine Replacement: No Substance Use Type: Crack/Cocaine, Heroin, IV Drugs and Marijuana Substance Use Type Other:: on methadone Substance Use Frequency: Chronic Longstanding Last Used Substance: Days (ago) Last Used Substance Other:: 5 days ago Currently Displaying Signs/Symptoms of Drug Intoxication Withdrawal: No Any prior treatment program specific to substance use: Yes (methadone) Have you been hit, kicked, punched, or otherwise hurt by someone within the past year? If so, by whom?: No Do you feel safe in your current relationship?: No Current Relationship Is there a partner from a previous relationship who is making you feel unsafe now?: No Are you made to feel afraid or neglected: No Spiritual Healthcare Practices: spiritual Advance Directives: No Advance Directives Information Provided: No Advance Directives on File: No Do you have thoughts of harming others: None Do you have a plan to hurt others: No Plan Recently lost weight without trying: No Eating poorly because of decreased appetite: Yes Nutrition Risks: No Nutritional Risk Patient : No : No Poor oral hygiene: No Meds Allergies Allergy/AdvReac Type Severity Reaction Status Date / Time No Known Allergies Allergy Unverified 05/16/20 15:11 Active Medications: Current Medications Acetaminophen (Acetaminophen 325 Mg Tablet) 650 mg PO Q6H PRN PRN Reason: Pain, Mild (Pain Scale 1-3) Last Admin: 01/30/22 03:53 Dose: 650 mg Documented by: Amlodipine Besylate (Amlodipine Besylate 10 Mg Tablet) 10 mg PO DAILY [facility]; Protocol Last Admin: 01/30/22 09:42 Dose: 10 mg Documented by: Docusate Sodium (Docusate Sodium 100 Mg Capsule) 100 mg PO DAILY PRN PRN Reason: Constipation Last Admin: 01/30/22 09:52 Dose: 100 mg Documented by: Enoxaparin Sodium (Enoxaparin Sodium 40 Mg/0.4 Ml Syringe) 40 mg SUBCUT Q24H [facility] Last Admin: 01/30/22 00:35 Dose: Not Given Documented by: Vancomycin HCl 750 mg/ Sodium (Chloride) 265 mls @ 265 mls/hr IV Q12H [facility] Vancomycin HCl 1,000 mg/ (Sodium Chloride) 270 mls @ 270 mls/hr IV ONCE@1200 [facility] Last Admin: 01/30/22 13:06 Dose: 270 mls/hr Documented by: Melatonin (Melatonin 3 Mg Tablet) 6 mg PO BEDTIME PRN PRN Reason: Insomnia Methadone HCl (Methadone Hcl 20 Mg/2 Ml Oral.Conc) 115 mg PO DAILY [facility] Last Admin: 01/30/22 09:43 Dose: 115 mg Documented by: Morphine Sulfate (Morphine Sulfate Immed Release 15 Mg Tablet) 15 mg PO Q4H PRN PRN Reason: Pain, Severe (Pain Scale 7-10) Last Admin: 01/30/22 02:52 Dose: 15 mg Documented by: Ondansetron HCl (Ondansetron Hcl 4 Mg/2 Ml Vial) 4 mg IVPUSH Q8H PRN PRN Reason: Nausea and Vomiting Pharmacy Consult (Consult Rx Vancomycin Dosing) 1 each MISCELLANE DAILY PRN PRN Reason: Consult order Polyethylene Glycol (Polyethylene Glycol 3350 17 Gm Powd.Pack) 17 gm PO DAILY PRN PRN Reason: Constipation Pregabalin (Pregabalin 50 Mg Capsule) 50 mg PO BEDTIME [facility] Last Admin: 01/30/22 00:25 Dose: 50 mg Documented by: Sodium Chloride (0.9 % Sodium Chloride Flush 3 Ml Syringe) 3 ml IVFLUSH QSHIFT [facility] Last Admin: 01/30/22 09:44 Dose: 3 ml Documented by: Home Medications Medication Instructions Recorded Confirmed Last Taken Type methadone 10 mg/mL oral concentrate 115 mg PO DAILY 01/30/22 01/30/22 01/29/22 History Physical Exam Vital Signs: Vital Signs: Last Vital Signs Temp 98.7 F 01/30/22 11:35 Pulse 91 01/30/22 11:35 Resp 18 01/30/22 11:35 BP 133/71 01/30/22 11:35 Pulse Ox 96 01/30/22 11:35 BMI result Body Mass Index 17.0 Const: General: cooperative and no acute distress Orientation/consciousness: patient oriented x3 Eyes: General: appearance normal, both eyes and all related structures Pupils: Equal, round and reactive pupils present Resp: Effort & Inspection: normal respiratory effort Auscultation: clear to auscultation bilaterally Cardio: Rate: regular rate Rhythm: regular rhythm GI: Palpation (GI): Soft to palpation and nontender Auscultation: normal bowel sounds Skin: General skin exam: no rashes or lesions noted Neuro: Other: Neurological examination is nonfocal with no weakness in the upper extremities. Slight weakness of left hip flexion related to arthritis of the hip joint. Reflexes are 2-3+ plantar response are flexor General: patient oriented x3 Cranial nerves: Yes Equal, round and reactive pupils present Cognition (Neuro): normal cognition Extrem: Other: neck pain General: Yes normal to inspection and Yes no pedal edema Results Labs CBC & Chem 7: 01/30/22 05:58 01/30/22 05:58 Labs: Short CBC 01/30/22 Range/Units 05:58 WBC 7.2 (4.8-10.8) X10*3/uL Hgb 11.3 L (12.0-16.0) g/dl Hct 35.0 L (37.0-47.0) % Plt Count 442 H D (160-400) X10*3/uL BMP 01/30/22 05:58 Sodium 137 Potassium 4.5 Chloride 100 Carbon Dioxide 29 BUN 13 Creatinine 0.65 Calcium 9.3 Assessment and Plan (1) MRSA bacteremia: Status: Acute This is skin source ?MRSA from IVDU There is no endocarditis reported Abscess apparently doesnt need neurosurgical drainage. (2) Epidural abscess: Status: Acute Continue IV antibiotics. Followup MRI of the cervical spine with and without gadolinium on Wednesday, or earlier if neurological findings developed Plan Would give Vancomycin likely 6-8 weeks IV,levels around 15-20,AUC measurement PICC line and placement ?[facility] Procedures Date of Service Date of Service: 01/30/22
--- NOTE | 2022-01-30 14:09 | HO.PM.IMPN ---
Subjective Subjective Date of Service: 01/30/22 Interval History: Complaining of left hand numbness and tingling, and feels left forearm falls back when she straighten the forearm, no issues on right-sided, neck pain is better, no overnight fever chills, no nausea vomiting tolerating diet, sleeping well. 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 Neck is supple no JVD. CVS regular rate rhythm, Respiratory lungs clear to auscultation, no respiratory distress, no wheeze, no rhonchi. Gastrointestinal abdomen soft, nontender, bowel sounds audible, no no guarding , no rigidity. Extremities no clubbing cyanosis or edema. Neuro nonfocal patient moving all 4 extremity speech clear. Skin no rash Objective Data Active Medications Acetaminophen (Acetaminophen 325 Mg Tablet) 650 mg PO Q6H PRN PRN Reason: Pain, Mild (Pain Scale 1-3) Last Admin: 01/30/22 03:53 Dose: 650 mg Documented by: NAOMY Amlodipine Besylate (Amlodipine Besylate 10 Mg Tablet) 10 mg PO DAILY [facility]; Protocol Last Admin: 01/30/22 09:42 Dose: 10 mg Documented by: JALEEL Docusate Sodium (Docusate Sodium 100 Mg Capsule) 100 mg PO DAILY PRN PRN Reason: Constipation Last Admin: 01/30/22 09:52 Dose: 100 mg Documented by: JALEEL Enoxaparin Sodium (Enoxaparin Sodium 40 Mg/0.4 Ml Syringe) 40 mg SUBCUT Q24H [facility] Last Admin: 01/30/22 00:35 Dose: Not Given Documented by: NAOMY Non-Admin Reason: declined per pt, given hosp right before abreu Vancomycin HCl 750 mg/ Sodium (Chloride) 265 mls @ 265 mls/hr IV Q12H [facility] Vancomycin HCl 1,000 mg/ (Sodium Chloride) 270 mls @ 270 mls/hr IV ONCE@1200 [facility] Last Admin: 01/30/22 13:06 Dose: 270 mls/hr Documented by: JALEEL Melatonin (Melatonin 3 Mg Tablet) 6 mg PO BEDTIME PRN PRN Reason: Insomnia Methadone HCl (Methadone Hcl 20 Mg/2 Ml Oral.Conc) 115 mg PO DAILY [facility] Last Admin: 01/30/22 09:43 Dose: 115 mg Documented by: JALEEL Morphine Sulfate (Morphine Sulfate Immed Release 15 Mg Tablet) 15 mg PO Q4H PRN PRN Reason: Pain, Severe (Pain Scale 7-10) Last Admin: 01/30/22 02:52 Dose: 15 mg Documented by: NAOMY Ondansetron HCl (Ondansetron Hcl 4 Mg/2 Ml Vial) 4 mg IVPUSH Q8H PRN PRN Reason: Nausea and Vomiting Pharmacy Consult (Consult Rx Vancomycin Dosing) 1 each MISCELLANE DAILY PRN PRN Reason: Consult order Polyethylene Glycol (Polyethylene Glycol 3350 17 Gm Powd.Pack) 17 gm PO DAILY PRN PRN Reason: Constipation Pregabalin (Pregabalin 50 Mg Capsule) 50 mg PO BEDTIME [facility] Last Admin: 01/30/22 00:25 Dose: 50 mg Documented by: NAOMY Sodium Chloride (0.9 % Sodium Chloride Flush 3 Ml Syringe) 3 ml IVFLUSH QSHIFT [facility] Last Admin: 01/30/22 09:44 Dose: 3 ml Documented by: JALEEL Labs CBC & Chem 7: 01/30/22 05:58 01/30/22 05:58 Labs: Laboratory Results - last 24 hr 01/30/22 01/30/22 05:58 05:58 MCV 88.2 MCH 28.5 MCHC 32.3 RDW 12.6 Plt Count 442 H D MPV 9.0 L Immature Gran % (Auto) 0.6 H Neut % (Auto) 54.4 Lymph % (Auto) 32.1 [place] % (Auto) 8.3 Eos % (Auto) 3.9 Baso % (Auto) 0.7 Lymph # (Auto) 2.3 [place] # (Auto) 0.6 Eos # (Auto) 0.3 Baso # (Auto) 0.1 Abs Immat Gran (auto) 0.04 H Absolute Neuts (auto) 3.9 Absolute Nucleated RBC 0.000 Nucleated RBC % (auto) 0.0 Anion Gap 13 Estim Creat Clear Calc 75.8 Estimated GFR > 60 Random Glucose 119 H Calcium 9.3 Assessment and Plan (1) Methadone dependence: Status: Acute (2) MRSA bacteremia: Status: Acute (3) Epidural abscess: Status: Acute (4) Polysubstance abuse: Status: Acute Plan 51-year-old female with past medical history of polysubstance abuse who was initially transferred to [facility] on 01/24 for epidural abscess returns to the [facility] as direct admission for management of MRSA bacteremia and epidural abscess # Cervical Epidural abscess with MRSA bacteremia - likely skin source secondary to IV drug use - evaluated at [place] by Neurosurgery who felt that she is not a neurosurgical candidate Echocardiogram negative for infective endocarditis - continue iv vancomycin - cultures on 01/26 at [place] negative, patient afebrile WBC normal, await ID consult probably will require 4-6 weeks of IV antibiotics will need PICC line and placement to rehab - neck pain and generalized pain not well controlled on morphine, will change to IV Dilaudid Due to symptoms of hand numbness and weakness patient seen by Dr. Waller he recommend to repeat MRI C-spine with and without gadolinium on Wednesday or sooner if patient develops neurological symtoms. # methadone dependence - continue methadone, seen by care team # Constipation will add stool softener # hypertension continue Norvasc 10 mg daily DVT prophylaxis: Lovenox Patient need continued inpatient hospitalization due to MRSA bacteremia requiring IV antibiotics, with neurological symptoms need close neurological followup. Quality Stroke Does the patient have a stroke diagnosis?: No VTE Prior VTE?: No VTE Risk Level:: Medical - moderate - high VTE Device Contraindication: Treatment Not Indicated VTE Drug Contraindication: N/A - Med Ordered
[2022-01-30 15:17] VITALS: BP 102/54; PULSE 75; RESP 18; TEMP 36.9; O2SAT 98
--- NOTE | 2022-01-30 15:58 | MHC.CM.PN ---
EMR REVIEWED, PT ADMITTED W/NECK PAIN AND FOUND TO HAVE BACTEREMIA, PT WILL NEED 6 WKS IV ABX AT STR D/T RECENT IV SA, PT REPORTS SHE USED IV COCAINE 1 WK AGO AND THAT'S HOW SHE GOT THE INFECTION, PT REPORTS SHE IS INDEP, LIVES ALONE, DENIES USE OF DME, HAS [facility] [place] FOR METH[facility]ONE MAINT., PT REPORTS SHE PREFERS [facility] FOR PREFERRED SNF AND REFERRAL HAS BEEN PLACED, ANTIC THEY WILL HAVE A BED OFFER NEXT WK WHEN [facility] PT WILL BE READY FOR D/C. D/C PLAN: [facility] FOR 6WKS IV ABX W/BLS FOR TRANSPORT
[2022-01-30] MEDS: HYDROmorphone HCl 0.5 MG/0.5 ML SYRINGE IVPUSH (17:10)
[2022-01-30 20:00] VITALS: BP 116/68; PULSE 82; RESP 18; TEMP 37.7; O2SAT 98
[2022-01-30] MEDS: Sennosides/Docusate Sodium TABLET 1 TAB PO (20:37)
[2022-01-30 23:56] VITALS: BP 121/66; PULSE 94; RESP 17; TEMP 37.1; O2SAT 98
[2022-01-31] VITALS (8 sets, daily range): BP systolic 101–150; BP diastolic 57–80; PULSE 66–84; RESP 17–21; TEMP 36.4–37.3; O2SAT 95–100
[2022-01-31] MEDS: vancomycin HCL 750 MG in 0.9 % Sodium Chloride 250 ML 265 MG IV ×3 (00:26→23:50)
[2022-01-31] MEDS: Morphine Sulfate Immed Release 15 MG TABLET PO (00:26)
[2022-01-31] MEDS: Enoxaparin Sodium 40 MG/0.4 ML SYRINGE SUBCUT ×2 (00:33→23:50)
[2022-01-31] MEDS: Melatonin 3 MG TABLET 6 MG PO (00:58)
[2022-01-31] MEDS: 0.9 % Sodium Chloride Flush 3 ML SYRINGE IVFLUSH ×4 (01:17→23:52)
[2022-01-31] MEDS: HYDROmorphone HCl 0.5 MG/0.5 ML SYRINGE IVPUSH (02:11)
[2022-01-31] MEDS: Ketorolac Tromethamine 15 MG/ML VIAL IVPUSH ×4 (02:45→20:44)
[2022-01-31] MEDS: amLODIPine Besylate 10 MG TABLET PO (08:16)
[2022-01-31] MEDS: Acetaminophen 325 MG TABLET 650 MG PO ×2 (08:16→17:28)
[2022-01-31] MEDS: Docusate Sodium 100 MG CAPSULE 200 MG PO (08:17)
[2022-01-31] MEDS: methADONE HCl 20 MG/2 ML ORAL.CONC 115 MG PO (08:18)
--- NOTE | 2022-01-31 10:37 | HO.PM.IMPN ---
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 Neck supple, no tenderness to palpation, no paravertebral muscle swelling or redness, no JVD. CVS? regular rate rhythm, Respiratory lungs clear to auscultation, no respiratory distress, no wheeze, no rhonchi. Gastrointestinal abdomen soft, nontender, bowel sounds audible Extremities no edema. Neuro nonfocal patient moving all 4 extremity speech clear. 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 Skin no rash psych appropriate affect Objective Data Active Medications Acetaminophen (Acetaminophen 325 Mg Tablet) 650 mg PO Q6H PRN PRN Reason: Pain, Mild (Pain Scale 1-3) Last Admin: 01/31/22 08:16 Dose: 650 mg Documented by: JALEEL Amlodipine Besylate (Amlodipine Besylate 10 Mg Tablet) 10 mg PO DAILY [facility]; Protocol Last Admin: 01/31/22 08:16 Dose: 10 mg Documented by: JALEEL Cyclobenzaprine HCl (Cyclobenzaprine Hcl 5 Mg Tablet) 5 mg PO TID [facility] Docusate Sodium (Docusate Sodium 100 Mg Capsule) 100 mg PO DAILY PRN PRN Reason: Constipation Last Admin: 01/30/22 09:52 Dose: 100 mg Documented by: JALEEL Docusate Sodium (Docusate Sodium 100 Mg Capsule) 200 mg PO DAILY [facility] Last Admin: 01/31/22 08:17 Dose: 200 mg Documented by: JALEEL Enoxaparin Sodium (Enoxaparin Sodium 40 Mg/0.4 Ml Syringe) 40 mg SUBCUT Q24H [facility] Last Admin: 01/31/22 00:33 Dose: 40 mg Documented by: NAOMY Vancomycin HCl 750 mg/ Sodium (Chloride) 265 mls @ 265 mls/hr IV Q12H [facility] Last Infusion: 01/31/22 01:28 Dose: 0 mls/hr Documented by: NAOMY Ketorolac Tromethamine (Ketorolac Tromethamine 15 Mg/Ml Vial) 15 mg IVPUSH Q6H [facility] Last Admin: 01/31/22 09:00 Dose: 15 mg Documented by: JALEEL Melatonin (Melatonin 3 Mg Tablet) 6 mg PO BEDTIME PRN PRN Reason: Insomnia Last Admin: 01/31/22 00:58 Dose: 6 mg Documented by: NAOMY Methadone HCl (Methadone Hcl 20 Mg/2 Ml Oral.Conc) 115 mg PO DAILY [facility] Last Admin: 01/31/22 08:18 Dose: 115 mg Documented by: JALEEL Ondansetron HCl (Ondansetron Hcl 4 Mg/2 Ml Vial) 4 mg IVPUSH Q8H PRN PRN Reason: Nausea and Vomiting Pharmacy Consult (Consult Rx Vancomycin Dosing) 1 each MISCELLANE DAILY PRN PRN Reason: Consult order Polyethylene Glycol (Polyethylene Glycol 3350 17 Gm Powd.Pack) 17 gm PO DAILY PRN PRN Reason: Constipation Pregabalin (Pregabalin 50 Mg Capsule) 50 mg PO BEDTIME [facility] Last Admin: 01/30/22 20:47 Dose: 50 mg Documented by: BROOKE Senna/Docusate Sodium (Sennosides/Docusate Sodium Tablet) 1 tab PO BEDTIME [facility] Last Admin: 01/30/22 20:37 Dose: 1 tab Documented by: BROOKE Sodium Chloride (0.9 % Sodium Chloride Flush 3 Ml Syringe) 3 ml IVFLUSH QSHIFT [facility] Last Admin: 01/31/22 08:23 Dose: 3 ml Documented by: JALEEL Labs CBC & Chem 7: 01/30/22 05:58 01/30/22 05:58 Assessment and Plan (1) Methadone dependence: Status: Acute (2) MRSA bacteremia: Status: Acute (3) Epidural abscess: Status: Acute (4) Polysubstance abuse: Status: Acute Plan 51-year-old female with past medical history of polysubstance abuse who was initially transferred to [facility] on 01/24 for epidural abscess returns to the [facility] as direct admission for management of MRSA bacteremia and epidural abscess # Cervical Epidural abscess with MRSA bacteremia - likely skin source secondary to IV drug use - evaluated at [place] by Neurosurgery who felt that she is not a neurosurgical candidate Echocardiogram negative for infective endocarditis - continue iv vancomycin/ blood cultures positive on January 23 for MRSA, blood cultures on 01/26 at [place] negative, patient afebrile WBC normal, seen by ID she recommend 6-8 weeks of IV vanco level around 15-20 will need PICC line and placement to rehab ( [facility]) will DC IV morphine and IV Dilaudid place on IV Toradol, muscle relaxers and Tylenol Due to symptoms of hand numbness and weakness patient seen by Dr. Waller he recommend to repeat MRI C-spine with and without gadolinium on Wednesday or sooner if patient develops neurological symtoms, since patient's symptoms are improving will hold off on urgent MRI.. # methadone dependence - continue methadone, seen by care team # Constipation resolved, Continue stool softener # hypertension continue Norvasc 10 mg daily DVT prophylaxis: Lovenox Patient need continued inpatient hospitalization due to MRSA bacteremia requiring IV antibiotics, with neurological symptoms need close neurological followup. Quality Stroke Does the patient have a stroke diagnosis?: No VTE Prior VTE?: No VTE Risk Level:: Medical - moderate - high VTE Device Contraindication: Treatment Not Indicated VTE Drug Contraindication: N/A - Med Ordered
[2022-01-31 10:55] LABS: Creatinine Clr Calc Pharmacy 65.7; Estimated Glomerular Filt Rate > 60
[2022-01-31 11:05] LABS: Vancomycin Trough 13.5 mcg/mL (10.0-20.0)
--- NOTE | 2022-01-31 11:14 | HE.PHANOTE ---
Vancomycin Dosing Addendum Vancomycin Trough 13.5, ordered next trough for tomorrow at 1000. Cr 0.65 yesterday and 0.75 today, continue to monitor. Continue with same dose for now
[2022-01-31] MEDS: Cyclobenzaprine HCl 5 MG TABLET PO ×2 (14:07→20:44)
[2022-01-31] MEDS: Sennosides/Docusate Sodium TABLET 1 TAB PO (20:44)
[2022-01-31] MEDS: Pregabalin 50 MG CAPSULE PO (20:45)
[2022-02-01] MEDS: Acetaminophen 325 MG TABLET 650 MG PO (01:42)
[2022-02-01] MEDS: Ketorolac Tromethamine 15 MG/ML VIAL IVPUSH ×5 (02:08→20:00)
[2022-02-01 03:51] VITALS: BP 125/68; PULSE 84; RESP 17; TEMP 36.7; O2SAT 97
[2022-02-01 07:29] VITALS: BP 133/82; PULSE 77; RESP 18; TEMP 36.2; O2SAT 98
[2022-02-01 07:36] LABS: Creatinine Clr Calc Pharmacy 73.5; Estimated Glomerular Filt Rate > 60
[2022-02-01] MEDS: Cyclobenzaprine HCl 5 MG TABLET PO ×3 (09:48→20:01)
[2022-02-01] MEDS: Docusate Sodium 100 MG CAPSULE 200 MG PO (09:48)
[2022-02-01] MEDS: amLODIPine Besylate 10 MG TABLET PO (09:49)
[2022-02-01] MEDS: 0.9 % Sodium Chloride Flush 3 ML SYRINGE IVFLUSH ×2 (09:51→15:46)
[2022-02-01] MEDS: methADONE HCl 20 MG/2 ML ORAL.CONC 115 MG PO (09:51)
[2022-02-01 11:25] VITALS: BP 111/59; PULSE 82; RESP 18; TEMP 36.8; O2SAT 98
--- NOTE | 2022-02-01 11:30 | HE.PHANOTE ---
VANCO DOSING BASED OF TROUGH OF 12.0 TODAY DOSE CONTINUED. PREDICTED AUC OF 438. NEXT TROUGH TOMORROW 02/02 @ 1000
--- NOTE | 2022-02-01 11:38 | P.PNIM_ITS ---
Subjective Subjective Date of Service: 02/01/22 Interval History: feeling better this morning, no weakness or numbness of left upper extremity, improving neck stiffness , denies fever chills tolerating diet no nausea no vomiting, slept well, no lightheadedness, no dizziness, no acute issues overnight. Review of Systems Review of Systems: Yes all other systems are reviewed and are negative Physical Exam Vital Signs: Vital Signs: Last Vital Signs Temp 98.3 F 02/01/22 11:25 Pulse 82 02/01/22 11:25 Resp 18 02/01/22 11:25 BP 111/59 L 02/01/22 11:25 Pulse Ox 98 02/01/22 11:25 BMI result Body Mass Index 17.0 Const: Other: General patient resting comfortably in no acute distress.? Neck? supple, no tenderness to palpation, no paravertebral muscle swelling? or redness, no JVD. good range of motion CVS? regular rate rhythm, Respiratory lungs clear to auscultation, no respiratory distress, no wheeze, no rhonchi. Gastrointestinal abdomen soft, nontender, bowel sounds audible Extremities no edema. Neuro nonfocal patient moving all 4 extremity speech clear. 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 Skin no rash psych appropriate affect Objective Data Active Medications Acetaminophen (Acetaminophen 325 Mg Tablet) 650 mg PO Q6H PRN PRN Reason: Pain, Mild (Pain Scale 1-3) Last Admin: 02/01/22 01:42 Dose: 650 mg Documented by: KEVIN Amlodipine Besylate (Amlodipine Besylate 10 Mg Tablet) 10 mg PO DAILY [facility]; Protocol Last Admin: 02/01/22 09:49 Dose: 10 mg Documented by: JALEEL Cyclobenzaprine HCl (Cyclobenzaprine Hcl 5 Mg Tablet) 5 mg PO TID [facility] Last Admin: 02/01/22 09:48 Dose: 5 mg Documented by: JALEEL Docusate Sodium (Docusate Sodium 100 Mg Capsule) 100 mg PO DAILY PRN PRN Reason: Constipation Last Admin: 01/30/22 09:52 Dose: 100 mg Documented by: JALEEL Docusate Sodium (Docusate Sodium 100 Mg Capsule) 200 mg PO DAILY [facility] Last Admin: 02/01/22 09:48 Dose: 200 mg Documented by: JALEEL Enoxaparin Sodium (Enoxaparin Sodium 40 Mg/0.4 Ml Syringe) 40 mg SUBCUT Q24H [facility] Last Admin: 01/31/22 23:50 Dose: 40 mg Documented by: KEVIN Vancomycin HCl 750 mg/ Sodium (Chloride) 265 mls @ 265 mls/hr IV Q12H [facility] Last Infusion: 02/01/22 02:11 Dose: 265 mls/hr Documented by: KEVIN Ketorolac Tromethamine (Ketorolac Tromethamine 15 Mg/Ml Vial) 15 mg IVPUSH Q6H [facility] Last Admin: 02/01/22 09:49 Dose: 15 mg Documented by: JALEEL Melatonin (Melatonin 3 Mg Tablet) 6 mg PO BEDTIME PRN PRN Reason: Insomnia Last Admin: 01/31/22 00:58 Dose: 6 mg Documented by: NAOMY Methadone HCl (Methadone Hcl 20 Mg/2 Ml Oral.Conc) 115 mg PO DAILY [facility] Last Admin: 02/01/22 09:51 Dose: 115 mg Documented by: JALEEL Ondansetron HCl (Ondansetron Hcl 4 Mg/2 Ml Vial) 4 mg IVPUSH Q8H PRN PRN Reason: Nausea and Vomiting Pharmacy Consult (Consult Rx Vancomycin Dosing) 1 each MISCELLANE DAILY PRN PRN Reason: Consult order Polyethylene Glycol (Polyethylene Glycol 3350 17 Gm Powd.Pack) 17 gm PO DAILY PRN PRN Reason: Constipation Pregabalin (Pregabalin 50 Mg Capsule) 50 mg PO BEDTIME [facility] Last Admin: 01/31/22 20:45 Dose: 50 mg Documented by: RONNY Senna/Docusate Sodium (Sennosides/Docusate Sodium Tablet) 1 tab PO BEDTIME [facility] Last Admin: 01/31/22 20:44 Dose: 1 tab Documented by: RONNY Sodium Chloride (0.9 % Sodium Chloride Flush 3 Ml Syringe) 3 ml IVFLUSH QSHIFT [facility] Last Admin: 02/01/22 09:51 Dose: 3 ml Documented by: JALEEL Labs CBC & Chem 7: 01/30/22 05:58 02/01/22 05:56 Labs: Laboratory Results - last 24 hr 02/01/22 02/01/22 05:56 10:03 Estim Creat Clear Calc 73.5 Estimated GFR > 60 Vancomycin Trough 12.0 Assessment and Plan (1) Methadone dependence: Status: Acute (2) MRSA bacteremia: Status: Acute (3) Epidural abscess: Status: Acute (4) Polysubstance abuse: Status: Acute Plan 51-year-old female with past medical history of polysubstance abuse who was initially transferred to [facility] on 01/24 for epidural abscess returns to the [facility] as direct admission for management of MRSA bacteremia and epidural abscess # Cervical Epidural abscess with MRSA bacteremia no new weakness, numbness, neck pain improved - likely skin source secondary to IV drug use - evaluated at [place] by Neurosurgery who felt that she is not a neurosu rgical candidate Echocardiogram negative for infective endocarditis - continue iv vancomycin/ blood cultures positive on January 23 for MRSA, blood cultures on 01/26 at [place] negative, patient afebrile WBC normal, seen by ID she recommend 6-8 weeks of IV vanco, vanco level around 15-20 will need PICC line and placement to rehab ( [facility]) on IV Toradol, muscle relaxers and Tylenol Due to symptoms of hand numbness and weakness patient seen by Dr. Waller he recommend to repeat MRI C-spine with and without gadolinium on Wednesday or sooner if patient develops neurological symtoms, since patient's symptoms are improving will hold off on urgent MRI.. # methadone dependence - continue methadone, seen by care team # Constipation resolved, Continue stool softener # hypertension continue Norvasc 10 mg daily, few soft blood pressure readings will follow and reduce dose of Norvasc to 5 mg DVT prophylaxis: Lovenox Patient need continued inpatient hospitalization due to MRSA bacteremia requiring IV antibiotics, with neurological symptoms need close neurological followup. Quality Stroke Does the patient have a stroke diagnosis?: No VTE Prior VTE?: No VTE Risk Level:: Medical - moderate - high VTE Device Contraindication: Treatment Not Indicated VTE Drug Contraindication: N/A - Med Ordered
[2022-02-01] MEDS: vancomycin HCL 750 MG in 0.9 % Sodium Chloride 250 ML 265 MG IV (12:40)
[2022-02-01 16:00] VITALS: BP 102/59; PULSE 71; RESP 18; TEMP 36.3; O2SAT 97
[2022-02-01 20:00] VITALS: BP 113/59; PULSE 78; RESP 18; TEMP 36.3; O2SAT 97
[2022-02-01] MEDS: Sennosides/Docusate Sodium TABLET 1 TAB PO (20:01)
[2022-02-01] MEDS: Pregabalin 50 MG CAPSULE PO (20:02)
[2022-02-02] VITALS (7 sets, daily range): BP systolic 99–127; BP diastolic 55–71; PULSE 65–83; RESP 16–18; TEMP 36.2–36.8; O2SAT 96–99
[2022-02-02] MEDS: vancomycin HCL 750 MG in 0.9 % Sodium Chloride 250 ML 265 MG IV ×2 (00:01→12:19)
[2022-02-02] MEDS: 0.9 % Sodium Chloride Flush 3 ML SYRINGE IVFLUSH ×4 (00:01→19:28)
[2022-02-02] MEDS: Enoxaparin Sodium 40 MG/0.4 ML SYRINGE SUBCUT ×2 (00:02→22:25)
[2022-02-02] MEDS: Ketorolac Tromethamine 15 MG/ML VIAL IVPUSH ×4 (03:07→22:23)
[2022-02-02 06:29] LABS: Creatinine Clr Calc Pharmacy 65.7; Estimated Glomerular Filt Rate > 60
[2022-02-02] MEDS: methADONE HCl 20 MG/2 ML ORAL.CONC 115 MG PO (08:39)
[2022-02-02] MEDS: amLODIPine Besylate 10 MG TABLET PO (08:40)
[2022-02-02] MEDS: Docusate Sodium 100 MG CAPSULE 200 MG PO (08:40)
[2022-02-02] MEDS: Cyclobenzaprine HCl 5 MG TABLET PO ×3 (08:40→19:28)
--- NOTE | 2022-02-02 10:48 | MHC.CLN ---
F/U DIET=REGULAR. ENSURE TID PROVIDES ADDITIONAL 1050 KCALS, 60 G PROTEIN. APPEARS TO BE EATING 75-100% AND TOLERATING DIET. PATIENT IS UNDERWEIGHT. CONTINUE REGULAR DIET WITH SUPPLEMENT TID. FOLLOW WEIGHTS AND INTAKE.
[2022-02-02 11:16] LABS: Vancomycin Trough 14.2 mcg/mL (10.0-20.0)
--- NOTE | 2022-02-02 11:41 | HE.PHANOTE ---
Vancomycin Dosing Addendum Vancomycin level 14.2 today, continue with same regimen. Will recheck level on 02/04/22 at 1000 unless there is a change in her renal fxn.
--- NOTE | 2022-02-02 15:32 | HO.PM.IMPN ---
Subjective Subjective Date of Service: 02/02/22 Interval History: Feeling better, no neurological symptoms of weakness numbness of upper extremities, tolerating diet no nausea no vomiting no diarrhea no episodes of fever chills no chest discomfort, no palpitations, no acute issues overnight. Review of Systems No headache no dizziness no shortness of breath, no cough no urinary burning, no urgency Review of Systems: Yes all other systems are reviewed and are negative Physical Exam Vital Signs: Vital Signs: Last Vital Signs Temp 97.7 F 02/02/22 11:50 Pulse 83 02/02/22 11:50 Resp 16 02/02/22 11:50 BP 117/71 02/02/22 11:50 Pulse Ox 98 02/02/22 11:50 BMI result Body Mass Index 17.0 Const: Other: General patient resting comfortably in no acute distress.? Neck? supple, no tenderness to palpation, no paravertebral muscle swelling? or redness, no JVD. good range of motion CVS? regular rate rhythm, Respiratory lungs clear to auscultation, no respiratory distress, no wheeze, no rhonchi. Gastrointestinal abdomen soft, nontender, bowel sounds audible Extremities no edema. Neuro nonfocal patient moving all 4 extremity speech clear. 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 Skin no rash psych appropriate affect Objective Data Active Medications Acetaminophen (Acetaminophen 325 Mg Tablet) 650 mg PO Q6H PRN PRN Reason: Pain, Mild (Pain Scale 1-3) Last Admin: 02/01/22 01:42 Dose: 650 mg Documented by: KEVIN Amlodipine Besylate (Amlodipine Besylate 10 Mg Tablet) 10 mg PO DAILY [facility]; Protocol Last Admin: 02/02/22 08:40 Dose: 10 mg Documented by: MODESTA Cyclobenzaprine HCl (Cyclobenzaprine Hcl 5 Mg Tablet) 5 mg PO TID [facility] Last Admin: 02/02/22 15:04 Dose: 5 mg Documented by: MODESTA Docusate Sodium (Docusate Sodium 100 Mg Capsule) 100 mg PO DAILY PRN PRN Reason: Constipation Last Admin: 01/30/22 09:52 Dose: 100 mg Documented by: JALEEL Docusate Sodium (Docusate Sodium 100 Mg Capsule) 200 mg PO DAILY [facility] Last Admin: 02/02/22 08:40 Dose: 200 mg Documented by: MODESTA Enoxaparin Sodium (Enoxaparin Sodium 40 Mg/0.4 Ml Syringe) 40 mg SUBCUT Q24H [facility] Last Admin: 02/02/22 00:02 Dose: 40 mg Documented by: NAOMY Vancomycin HCl 750 mg/ Sodium (Chloride) 265 mls @ 265 mls/hr IV Q12H [facility] Last Infusion: 02/02/22 15:07 Dose: 0 mls/hr Documented by: MODESTA Ketorolac Tromethamine (Ketorolac Tromethamine 15 Mg/Ml Vial) 15 mg IVPUSH Q6H [facility] Last Admin: 02/02/22 15:03 Dose: 15 mg Documented by: MODESTA Melatonin (Melatonin 3 Mg Tablet) 6 mg PO BEDTIME PRN PRN Reason: Insomnia Last Admin: 01/31/22 00:58 Dose: 6 mg Documented by: NAOMY Methadone HCl (Methadone Hcl 20 Mg/2 Ml Oral.Conc) 115 mg PO DAILY [facility] Last Admin: 02/02/22 08:39 Dose: 115 mg Documented by: MODESTA Ondansetron HCl (Ondansetron Hcl 4 Mg/2 Ml Vial) 4 mg IVPUSH Q8H PRN PRN Reason: Nausea and Vomiting Pharmacy Consult (Consult Rx Vancomycin Dosing) 1 each MISCELLANE DAILY PRN PRN Reason: Consult order Polyethylene Glycol (Polyethylene Glycol 3350 17 Gm Powd.Pack) 17 gm PO DAILY PRN PRN Reason: Constipation Pregabalin (Pregabalin 50 Mg Capsule) 50 mg PO BEDTIME [facility] Last Admin: 02/01/22 20:02 Dose: 50 mg Documented by: RONNY Senna/Docusate Sodium (Sennosides/Docusate Sodium Tablet) 1 tab PO BEDTIME [facility] Last Admin: 02/01/22 20:01 Dose: 1 tab Documented by: RONNY Sodium Chloride (0.9 % Sodium Chloride Flush 3 Ml Syringe) 3 ml IVFLUSH QSHIFT [facility] Last Admin: 02/02/22 15:03 Dose: 3 ml Documented by: MODESTA Labs CBC & Chem 7: 01/30/22 05:58 02/02/22 05:32 Labs: Laboratory Results - last 24 hr 02/02/22 02/02/22 05:32 09:57 Estim Creat Clear Calc 65.7 Estimated GFR > 60 Vancomycin Trough 14.2 Assessment and Plan (1) Methadone dependence: Status: Acute (2) MRSA bacteremia: Status: Acute (3) Epidural abscess: Status: Acute (4) Polysubstance abuse: Status: Acute Plan 51-year-old female with past medical history of polysubstance abuse who was initially transferred to [facility] on 01/24 for epidural abscess returns to the [facility] as direct admission for management of MRSA bacteremia and epidural abscess # Cervical Epidural abscess with MRSA bacteremia no new weakness, numbness, neck pain stable, 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 and C4-C7 moderate to severe neural foraminal stenosis - likely skin source secondary to IV drug use - evaluated at [facility] by Neurosurgery who felt that she is not a neurosurgical candidate Echocardiogram negative for infective endocarditis - continue iv vancomycin/ blood cultures positive on January 23 for MRSA, blood cultures on 01/26 at [facility] negative, patient afebrile WBC normal, seen by ID she recommend 6-8 weeks of IV vanco, vanco goal around 15-20, Vanco trough today is 14.2,( will calculate IV antibiotics from January 26 so today is day ) PICC line ordered, 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 Waller he recommend to repeat MRI C-spine with and without gadolinium on Wednesday or sooner if patient develops neurological symtoms, since patient's symptoms are improving will hold off on repeat MRI.. # methadone dependence - continue methadone, seen by care team # Constipation resolved, Continue stool softener # hypertension soft blood pressure readings will change Norvasc to 5 mg, follow BP DVT prophylaxis: Lovenox Patient need continued inpatient hospitalization due to MRSA bacteremia requiring IV antibiotics, need PICC line and placement to rehab cm arranging for bed. Quality Stroke Does the patient have a stroke diagnosis?: No VTE Prior VTE?: No VTE Risk Level:: Medical - moderate - high VTE Device Contraindication: Treatment Not Indicated VTE Drug Contraindication: N/A - Med Ordered
[2022-02-02 16:01] LABS: COVID-19 Test Negative (Negative); IDNOW Serial# 16C4AD1C
[2022-02-02] MEDS: Pregabalin 50 MG CAPSULE PO (19:28)
[2022-02-02] MEDS: Sennosides/Docusate Sodium TABLET 1 TAB PO (19:28)
[2022-02-02] MEDS: Melatonin 3 MG TABLET 6 MG PO (22:23)
[2022-02-03] MEDS: vancomycin HCL 750 MG in 0.9 % Sodium Chloride 250 ML 265 MG IV ×2 (00:14→11:38)
[2022-02-03 03:22] VITALS: BP 111/64; PULSE 72; RESP 18; TEMP 36.8; O2SAT 97
[2022-02-03] MEDS: Ketorolac Tromethamine 15 MG/ML VIAL IVPUSH ×3 (06:02→20:48)
[2022-02-03 06:10] LABS: Creatinine Clr Calc Pharmacy 65.7; Estimated Glomerular Filt Rate > 60
[2022-02-03 07:32] VITALS: BP 132/64; PULSE 74; RESP 17; TEMP 36.7; O2SAT 100
[2022-02-03] MEDS: 0.9 % Sodium Chloride Flush 3 ML SYRINGE IVFLUSH ×2 (09:12→15:00)
[2022-02-03] MEDS: Cyclobenzaprine HCl 5 MG TABLET PO ×3 (09:12→20:46)
[2022-02-03] MEDS: amLODIPine Besylate 10 MG TABLET PO (09:13)
[2022-02-03] MEDS: methADONE HCl 20 MG/2 ML ORAL.CONC 115 MG PO (09:13)
[2022-02-03] MEDS: Docusate Sodium 100 MG CAPSULE 200 MG PO (09:13)
--- NOTE | 2022-02-03 09:36 | HE.PHANOTE ---
Vancomycin Dosing Addendum Renal function stable. Continue with same regimen 750 mg Q12H. Next level due on 02/04/22 at 1000. Pharmacy will continue to monitor renal function daily. Marzena Finnegan, PharmD
--- NOTE | 2022-02-03 10:29 | HO.PM.IMPN ---
Subjective Subjective Date of Service: 02/04/22 Interval History: Seen and evaluated Feels comfortable, denies any neurological symptoms No reported weakness Tolerating diet No other overnight events Review of Systems No headache no dizziness no shortness of breath, no cough no urinary burning, no urgency Review of Systems: Yes all other systems are reviewed and are negative Physical Exam Vital Signs: Vital Signs: Last Vital Signs Temp 98.0 F 02/03/22 07:32 Pulse 74 02/03/22 07:32 Resp 17 02/03/22 07:32 BP 132/64 02/03/22 07:32 Pulse Ox 100 02/03/22 07:32 BMI result Body Mass Index 17.0 Const: Other: General patient resting comfortably in no acute distress.? Neck? supple, no tenderness to palpation, no JVD. good range of motion CVS? regular rate rhythm, Respiratory lungs clear to auscultation, no respiratory distress, no wheeze, no rhonchi. Gastrointestinal abdomen soft, nontender, bowel sounds audible Extremities no edema. Neuro nonfocal patient moving all 4 extremity speech clear. 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 Skin no rash psych appropriate affect Objective Data Active Medications Acetaminophen (Acetaminophen 325 Mg Tablet) 650 mg PO Q6H PRN PRN Reason: Pain, Mild (Pain Scale 1-3) Last Admin: 02/01/22 01:42 Dose: 650 mg Documented by: KEVIN Amlodipine Besylate (Amlodipine Besylate 10 Mg Tablet) 10 mg PO DAILY [facility]; Protocol Last Admin: 02/03/22 09:13 Dose: 10 mg Documented by: MODESTA Cyclobenzaprine HCl (Cyclobenzaprine Hcl 5 Mg Tablet) 5 mg PO TID [facility] Last Admin: 02/03/22 09:12 Dose: 5 mg Documented by: MODESTA Docusate Sodium (Docusate Sodium 100 Mg Capsule) 100 mg PO DAILY PRN PRN Reason: Constipation Last Admin: 01/30/22 09:52 Dose: 100 mg Documented by: JALEEL Docusate Sodium (Docusate Sodium 100 Mg Capsule) 200 mg PO DAILY [facility] Last Admin: 02/03/22 09:13 Dose: 200 mg Documented by: MODESTA Enoxaparin Sodium (Enoxaparin Sodium 40 Mg/0.4 Ml Syringe) 40 mg SUBCUT Q24H [facility] Last Admin: 02/02/22 22:25 Dose: 40 mg Documented by: FRED Comments: pt takes in arm she has no stomach fat Vancomycin HCl 750 mg/ Sodium (Chloride) 265 mls @ 265 mls/hr IV Q12H [facility] Last Infusion: 02/03/22 01:32 Dose: 0 mls/hr Documented by: NAOMY Ketorolac Tromethamine (Ketorolac Tromethamine 15 Mg/Ml Vial) 15 mg IVPUSH Q6H PRN PRN Reason: Pain, Moderate (Pain Scale 4-6 Last Admin: 02/03/22 06:02 Dose: 15 mg Documented by: NAOMY Melatonin (Melatonin 3 Mg Tablet) 6 mg PO BEDTIME PRN PRN Reason: Insomnia Last Admin: 02/02/22 22:23 Dose: 6 mg Documented by: FRED Methadone HCl (Methadone Hcl 20 Mg/2 Ml Oral.Conc) 115 mg PO DAILY [facility] Last Admin: 02/03/22 09:13 Dose: 115 mg Documented by: MODESTA Ondansetron HCl (Ondansetron Hcl 4 Mg/2 Ml Vial) 4 mg IVPUSH Q8H PRN PRN Reason: Nausea and Vomiting Pharmacy Consult (Consult Rx Vancomycin Dosing) 1 each MISCELLANE DAILY PRN PRN Reason: Consult order Polyethylene Glycol (Polyethylene Glycol 3350 17 Gm Powd.Pack) 17 gm PO DAILY PRN PRN Reason: Constipation Pregabalin (Pregabalin 50 Mg Capsule) 50 mg PO BEDTIME [facility] Last Admin: 02/02/22 19:28 Dose: 50 mg Documented by: FRED Senna/Docusate Sodium (Sennosides/Docusate Sodium Tablet) 1 tab PO BEDTIME [facility] Last Admin: 02/02/22 19:28 Dose: 1 tab Documented by: FRED Sodium Chloride (0.9 % Sodium Chloride Flush 3 Ml Syringe) 3 ml IVFLUSH QSHIFT [facility] Last Admin: 02/03/22 09:12 Dose: 3 ml Documented by: MODESTA Labs CBC & Chem 7: 01/30/22 05:58 02/04/22 05:25 Labs: Laboratory Results - last 24 hr 02/02/22 02/02/22 02/03/22 09:57 15:15 05:29 Estim Creat Clear Calc 65.7 Estimated GFR > 60 Vancomycin Trough 14.2 COVID-19 (ARVIND) Negative COVID-19 Clin Com See Note Assessment and Plan (1) MRSA bacteremia: Status: Acute (2) Epidural abscess: Status: Acute (3) Polysubstance abuse: Status: Acute Plan 51-year-old female with past medical history of polysubstance abuse who was initially transferred to [facility] on 01/24 for epidural abscess returns to the [facility] as direct admission for management of MRSA bacteremia and epidural abscess # Cervical Epidural abscess with MRSA bacteremia no new weakness, numbness, neck pain stable, 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 and C4-C7 moderate to severe neural foraminal stenosis likely skin source secondary to IV drug use evaluated at [facility] by Neurosurgery who felt that she is not a neurosurgical candidate Echocardiogram negative for infective endocarditis continue iv vancomycin/ blood cultures positive on January 23 for MRSA, blood cultures on 01/26 at [facility] negative, patient afebrile WBC normal, seen by ID she recommend 6-8 weeks of IV vanco, vanco goal around 15-20, Vanco trough today is 14.2,( will calculate IV antibiotics from January 26 so today is day ) PICC line ordered, manager case obtaining authorization for placement on prn IV Toradol, muscle relaxers and Tylenol Due to symptoms of hand numbness and weakness patient seen by Dr. Waller he recommend to repeat MRI C-spine with and without gadolinium on Wednesday or sooner if patient develops neurological symtoms, since patient's symptoms are improving will hold off on repeat MRI.. # methadone dependence continue methadone, seen by care team # Constipation resolved, Continue stool softener # hypertension soft blood pressure readings will change Norvasc to 5 mg, follow BP DVT prophylaxis Lovenox Patient need continued inpatient hospitalization due to MRSA bacteremia requiring IV antibiotics, need PICC line and placement to rehab cm arranging for bed. Quality Stroke Does the patient have a stroke diagnosis?: No VTE Prior VTE?: No VTE Risk Level:: Medical - moderate - high VTE Device Contraindication: Treatment Not Indicated VTE Drug Contraindication: N/A - Med Ordered
[2022-02-03 11:48] VITALS: BP 105/57; PULSE 77; RESP 18; TEMP 36.5; O2SAT 97
[2022-02-03 15:13] VITALS: BP 101/52; PULSE 91; RESP 18; TEMP 35.3; O2SAT 98
[2022-02-03] MEDS: Lidocaine HCl 1 % MPF 5 ML VIAL 10 ML INFILTRATI (17:00)
[2022-02-03 20:00] VITALS: BP 125/70; PULSE 103; RESP 18; TEMP 36.3; O2SAT 96
[2022-02-03] MEDS: Sennosides/Docusate Sodium TABLET 1 TAB PO (20:46)
[2022-02-03] MEDS: Pregabalin 50 MG CAPSULE PO (20:46)
[2022-02-03] MEDS: Enoxaparin Sodium 40 MG/0.4 ML SYRINGE SUBCUT (22:02)
[2022-02-03 23:40] VITALS: BP 110/60; PULSE 69; RESP 18; TEMP 36.4; O2SAT 96
[2022-02-04] MEDS: vancomycin HCL 750 MG in 0.9 % Sodium Chloride 250 ML 265 MG IV ×2 (00:05→11:45)
[2022-02-04] MEDS: 0.9 % Sodium Chloride Flush 3 ML SYRINGE IVFLUSH ×2 (00:07→09:02)
[2022-02-04] MEDS: Ketorolac Tromethamine 15 MG/ML VIAL IVPUSH ×2 (03:21→09:01)
[2022-02-04 03:31] VITALS: BP 98/54; PULSE 65; RESP 18; TEMP 36.3; O2SAT 97
[2022-02-04 07:09] LABS: Creatinine Clr Calc Pharmacy 65.7; Estimated Glomerular Filt Rate > 60
[2022-02-04 07:59] VITALS: BP 120/58; PULSE 77; RESP 17; TEMP 37.2; O2SAT 99
[2022-02-04 08:00] VITALS: BP 120/58; PULSE 77; RESP 17; TEMP 37.2; O2SAT 99
[2022-02-04] MEDS: Cyclobenzaprine HCl 5 MG TABLET PO ×2 (09:01→14:09)
[2022-02-04] MEDS: Docusate Sodium 100 MG CAPSULE 200 MG PO (09:01)
[2022-02-04] MEDS: amLODIPine Besylate 10 MG TABLET PO (09:01)
[2022-02-04] MEDS: methADONE HCl 20 MG/2 ML ORAL.CONC 115 MG PO (09:02)
[2022-02-04 10:52] LABS: Vancomycin Trough 14.9 mcg/mL (10.0-20.0)
--- NOTE | 2022-02-04 10:58 | HE.PHANOTE ---
Vancomycin DOsing Addendum Patients trough 14.9, continue with current regimen. Next level 02/06/22 @1000
--- NOTE | 2022-02-04 11:12 | PM.DS ---
DS: Providers Provider Date of Service: 02/04/22 Date of admission: 01/29/22 20:51 Primary care physician: Unknown Physician Consults: 01/29/22 23:44 Consult to Care Team Routine Comment: Reason for consultation: methadone 01/30/22 07:55 Consult to Infectious Diseases Routine Consulting Provider: Alta Nolan Reason for consultation: epidural abscess Has provider been notified: No 01/30/22 10:24 Consult to Neurology Routine Consulting Provider: [facility] Reason for consultation: cervical epidural absces complaing of keft arm numbness/tingling Has provider been notified: No DS: Diagnosis Discharge Diagnosis (1) MRSA bacteremia: Status: Acute (2) Epidural abscess: Status: Acute (3) Polysubstance abuse: Status: Acute (4) Methadone dependence: Status: Acute (5) Abscess in epidural space of cervical spine: Status: Acute DS: Summary Hospital Course Hospital Course: Admission note HPI 51-year-old female with past medical history of polysubstance abuse who initially presented to [facility] on 01/23 for neck pain found to have epidural abscess at that time.? Patient was transferred same [facility] possible neurosurgical intervention given her epidural abscess.? Patient returns as a direct admission to [facility] from [facility] after workup.? Per discharge summary from [facility], workup showed positive blood cultures for MRSA, blood cultures from 01/26 negative to date.? TTE negative for infective endocarditis, patient started on vancomycin and was transferred back to [facility].? On examining the patient, patient is awake alert, reports significant neck pain otherwise denies any headache, no change in vision, no weakness numbness or tingling, no abdominal pain nausea or vomiting, no chest pain shortness of breath or cough.? No urinary symptoms and no lower extremity edema Vitals on arrival reviewed seen within normal limit Patient restarted on vancomycin, pain control and admitted directly to [facility] for further management. Hospital course The patient primarily presented to the emergency with neck pain. She was found to have an epidural abscess in the cervical spine. She was transferred to [facility] for evaluation why your surgery team who did not feel that she is in your surgical candidate and no intervention was done with suggestion of treating it with IV antibiotics. Her blood cultures turned positive for MRSA. Treated with IV vancomycin with good response as blood cultures turn negative by January 26 at [facility]. Echo was done and came back negative for infective endocarditis. The patient was transferred [facility]. Evaluated by infectious disease specialist who recommended 6-8 weeks of IV antibiotics with vancomycin trough goal around 15-20. The patient has no weakness, numbness, neck pain improved and stable. PICC line was placed with discharge plan to finish antibiotic at the facility. ? Due to symptoms of hand numbness and weakness patient seen by Dr. Waller from Neurology who recommend to manage symptoms and only repeat MRI C-spine with and without gadolinium if patient develops neurological symtoms. Patient's symptoms were improving so we held off repeating the MRI. Patient was independent, moving appropriately with no reported concerns by the nursing staff. Plan at discharge Continue antibiotic for total of 6 weeks. To follow-up with infectious disease specialist as outpatient with possible extension of your antibiotics to 8 weeks Avoid drug usage Time Spent with Patient Time attestation: Total time spent providing and/or coordinating discharge services: Discharge coordination time: Greater than 30 minutes Quality: Safe Use of Opioids Does Pt have an Active Cancer Diagnosis on the Problem List?: No Quality: Stroke Does the patient have a stroke diagnosis?: No Physical Exam Vital Signs: Vital Signs: Last Vital Signs Temp 99.0 F 02/04/22 08:00 Pulse 77 02/04/22 08:00 Resp 17 02/04/22 08:00 BP 120/58 L 02/04/22 08:00 Pulse Ox 99 02/04/22 08:00 O2 Del Method 02/04/22 08:00 O2 Flow Rate 2 01/31/22 13:36 BMI result Body Mass Index 17.0 Const: Other: General patient resting comfortably in no acute distress.? Neck? supple, no tenderness to palpation, no JVD. good range of motion CVS? regular rate rhythm, Respiratory lungs clear to auscultation, no respiratory distress, no wheeze, no rhonchi. Gastrointestinal abdomen soft, nontender, bowel sounds audible Extremities no edema. Neuro nonfocal patient moving all 4 extremity speech clear. normal strength bilateral upper extremities Skin no rash, PICC line in place psych appropriate affect DS: Data Data Completed and Pending Labs on day of discharge: Laboratory Results - last 24 hr 02/04/22 02/04/22 05:25 10:06 Creatinine 0.75 Estim Creat Clear Calc 65.7 Estimated GFR > 60 Vancomycin Trough 14.9 Imaging MRI - head: Radiologist's impression: MR/MR cervical spine wo/w con IMPRESSION: 1. Epidural collection suggestive of abscess formation extending from C1-C5 (most notably in the right ventral/lateral canal at the level of C1-C2). ? 2. Moderate edema/enhancement within the posterior soft tissues of the neck extending from the occiput to the level of C4. No demonstrated drainable fluid collection within the soft tissues. ? 3. Moderate multilevel degenerative spondyloarthropathy of the cervical spine as described in detail above. Most notably, multifactorial degenerative changes and epidural expansion leads to moderate spinal canal stenosis at C2-C3 and C3-C4. Mild spinal canal stenosis at C4-C5. Moderate to severe neural foraminal stenoses from C4-C7. Discharge Plan Discharge Patient Disposition: [facility] Discharge Diagnosis: MRSA bacteremia Epidural abscess Polysubstance abuse Referrals: [facility] [Outside] - 1 Week Physician,Unknown J [Primary Care Provider] - 1 Week Discharge Medications: New vancomycin 750 mg recon soln 750 mg IV Q12H 33 Days Qty: 66 0RF sennosides-docusate sodium [Senna Plus] 8.6-50 mg Tablet 1 tab PO BEDTIME 30 Days Qty: 30 0RF docusate sodium 100 mg Capsule 200 mg PO DAILY 30 Days Qty: 60 0RF cyclobenzaprine 5 mg Tablet 5 mg PO TID PRN (Reason: Muscle Pain) Qty: 30 0RF pregabalin [Lyrica] 50 mg Capsule 50 mg PO BEDTIME 30 Days Qty: 30 0RF amlodipine 5 mg tablet 5 mg PO DAILY Qty: 30 0RF Continued methadone 10 mg/mL Concentrate 115 mg PO DAILY Discharge Orders: Discharge Order (Routine); Ordered 02/04/22 Ordered By: Pk Pickard Diet: advance to usual diet Activity on Discharge: As tolerated Stand Alone Forms: Patient Portal Discharge page Care Plan Goals: Read below Health Concerns: Read below Plan of Treatment: Read below Assessment: You were admitted to the hospital for evaluation of neck pain. Evaluated at [facility] and sent back to our facility for treatment of MRSA bacteremia and evidence of an abscess in your neck. No surgical intervention done. You were evaluated by infectious disease specialist and treated with IV antibiotics with clearance of your blood cultures. continue antibiotic for total of 6 weeks. To follow-up with infectious disease specialist as outpatient with possible extension of your antibiotics to 8 weeks Avoid drug usage
[2022-02-04 12:00] VITALS: BP 99/53; PULSE 79; RESP 18; TEMP 36.8; O2SAT 95
--- NOTE | 2022-02-04 12:10 | MHC.CM.PN ---
1430 [facility] REQUEST PATIENT TO TRANSFER TO [facility] RN, PATIENT, AND UNIT AWARE OF PLAN.
== END 2022-02-04 14:51 | disposition skilled nursing facility (03) | DRG 49 ==
PROVIDERS: Hospitalist; Internal Medicine; Radiology Diagnostic Radiology; Admitting Provider Family Medicine; Visit Provider Student in an Organized Health Care Education/Training Program
PROC: 02HV33Z Insertion of Infusion Device into Superior Vena Cava, Percutaneous Approach (ICD-10-PCS; principal; 2022-02-03 13:00)
DX: G06.1 Intraspinal abscess and granuloma (principal); B95.62 Methicillin resistant Staphylococcus aureus infection as the cause of diseases classified elsewhere; K59.00 Constipation, unspecified; I10 Essential (primary) hypertension; F19.10 Other psychoactive substance abuse, uncomplicated; F11.20 Opioid dependence, uncomplicated; Z20.822 Contact with and (suspected) exposure to COVID-19; Z87.730 Personal history of (corrected) cleft lip and palate; Z87.891 Personal history of nicotine dependence; Z79.899 Other long term (current) drug therapy
CPT/HCPCS: 36415; 36573; 80048; 80202; 82565; 85025; 87635; C1751; J1170; J1650; J1885; J3370

== ENCOUNTER 2022-02-05 08:27 | Emergency (ER) | payer OTHER, SELFPAY | END 2022-02-05 08:56 | PROVIDERS: Emergency Provider Emergency Medicine; PCP Internal Medicine | DX: Z76.0 Encounter for issue of repeat prescription (principal) ==

== ENCOUNTER 2022-02-05 09:07 | Emergency (ER) | payer OTHER, SELFPAY ==
--- NOTE | 2022-02-05 09:11 | ED.GENADULT ---
HPI - General Adult General Chief complaint: General Medical Stated complaint: Med refill Time Seen by Provider: 02/05/22 09:11 Source: patient Mode of arrival: ambulatory Limitations: no limitations History of Present Illness HPI narrative: 51 y/o female with history of substance abuse on Methadone, recent admission here for epidural abscess (C1-C5) with MRSA bacteremia (initially dx 01/23) was just discharged to [facility] yesterday presents back to the ER for IV antibiotics. She reports when she got to [facility] yesterday at 15:00 there was no vancomycin there for her. She was transferred to [facility] in [place], [place] for Neurosurgery evaluation and deemed not to be a surgical candidate. Last night she waited for pharmacy delivery at midnight there was still no IV antibiotics for her. The facility transported her to methadone clinic where she was dosed with her methadone. She did not get back in the van because she knew that she they did not have her antibiotics. Her father picked her up and brought her here. She reports her neck is sore but no worsening pain, weakness, numbness or tingling. MD complaint: needs IV antibiotics Location: neck Radiation: non-radiation Severity: mild Severity scale (1-10): 3 Quality: aching Pain Consistency: constant Relieving factors: none Exacerbating factors: none Associated symptoms: denies other symptoms Treatments prior to arrival: none Related Data Home Medications Medication Instructions Recorded Confirmed methadone 10 mg/mL oral concentrate 115 mg PO DAILY 01/30/22 02/05/22 Previous Rx's Medication Instructions Recorded amlodipine 5 mg tablet 5 mg PO DAILY #30 tabs 02/04/22 cyclobenzaprine 5 mg tablet 5 mg PO TID PRN Muscle Pain #30 02/04/22 tabs docusate sodium 100 mg capsule 200 mg PO DAILY 30 days #60 caps 02/04/22 pregabalin 50 mg capsule (Lyrica) 50 mg PO BEDTIME 30 days #30 caps 02/04/22 sennosides 8.6 mg-docusate sodium 1 tab PO BEDTIME 30 days #30 tabs 02/04/22 50 mg tablet (Senna Plus) vancomycin 750 mg intravenous 750 mg IV Q12H 33 days #66 ea 02/04/22 solution Allergies Allergy/AdvReac Type Severity Reaction Status Date / Time No Known Allergies Allergy Verified 06/09/22 11:42 Review of Systems Review of Systems: Constitutional: No Fever, No Chills ENT/Mouth: No sore throat, No Rhinorrhea, No Swallowing Difficulty Eyes: No Eye Pain, No Swelling, No Redness Cardiovascular: No Chest Pain, No SOB, No Orthopnea, No Edema Respiratory: No Cough, No Sputum, No Wheezing, No dyspnea Gastrointestinal: No Nausea, No Vomiting, No Diarrhea, No abdominal Pain Genitourinary: No Dysuria, No Urinary Frequency, No Hematuria Musculoskeletal: + joint pain, + Myalgias Skin: No Skin Lesions, No rash Neuro: No Weakness, No Numbness, No Dizziness, No Headache Psych: + Anxiety/Panic, No Depression Heme/Lymph: No Bruising, No Lymphadenopathy Endocrine: No Polyuria, No Polydipsia PMFSH Past Medical History Medical History Hypertension Methadone dependence Surgical History History of repair of congenital cleft palate Social History Social History (System 02/05/22 @ 11:42 by Niyah Emery) Household Members: None Housing: Apartment Do you presently have visiting nurse or other home services: No Alcohol intake: never Patient Tobacco Use Status: Former Tobacco user Quit Date: 1week ago Tobacco use type: Cigarette Cigarettes Per Day: 5 e-Cigarette/Vaping Use: Former Use Use of substances other than those prescribed or required for medical reasons: Yes Substance Use Type: Opiates Advance Directives: No Advance Directives Information Provided: Yes service: No Current occupational status: unemployed Physical Exam ED Vital Signs: Vital Signs - 24 hr 02/05/22 09:18 02/05/22 11:29 Temperature 98.0 F 98.4 F Pulse Rate 90 69 Respiratory Rate 18 18 Blood Pressure 122/55 L 94/58 L Pulse Oximetry 95 97 Oxygen Delivery Method Room Air Room Air BMI result Body Mass Index 17.8 Appearance: Alert. Oriented X3. Appears older than stated age. Thin. Eyes: Pupils equal, round and reactive to light. ENT: Pharynx normal. Poor dentition. Neck: Normal inspection. Neck supple. Midline tenderness throughout the cervical spine. CVS: Normal heart rate and rhythm. Pulses normal. Respiratory: No respiratory distress. Breath sounds normal. Abdomen: Soft and nontender. +BS x4 Skin: Skin warm and dry. Normal skin color. Normal skin turgor. No rashes. Extremities: No lower extremity edema. Old track matos present. PICC line present in the right upper extremity. Neuro: Oriented X 3. No motor deficit. No sensory deficit. Steady gait. Course Course Course Narrative: 51-year-old female with a history of recently diagnosed epidural abscess in the cervical spine, MRSA bacteremia on IV vancomycin for a 6-8 week course presents back to the ER when she cannot get her IV antibiotics at the rehab facility. She missed 1 dose of IV vancomycin last night. She was discharged on 750 mg b.i.d.. Will order that dose now. Will get basic labs, blood cultures, none have been done since initial admission on 01/23. Case management aware of her bounce back. Reevaluation(s) Reevaluation #1: No leukocytosis on her lab workup. Will place in physician observation. She needs to be discharged to a rehab facility for completion of a 6-8 week course of IV vancomycin for MRSA bacteremia and epidural abscess. Time: 11:33 Reevaluation #2: Case management working on placement, she refuses to go back to [facility]. Referrals made to facility in [place]. Will continue to monitor. Home meds have been ordered as well as ongoing IV vanco 750 mg IV q12. Medical Decision Making Lab Data Result diagrams: 02/05/22 10:07 02/05/22 10:07 Labs: Lab Results 02/05/22 02/05/22 02/05/22 Range/Units 10:07 10:07 10:07 WBC 10.6 (4.8-10.8) X10*3/uL RBC 3.86 L (4.20-5.50) X10*6/uL Hgb 10.9 L (12.0-16.0) g/dl Hct 34.9 L (37.0-47.0) % MCV 90.4 (80.0-98.0) fL MCH 28.2 (27.0-33.0) pg MCHC 31.2 (31.0-35.0) g/dl RDW 12.8 (11.0-16.0) % Plt Count 671 H D (160-400) X10*3/uL MPV 9.0 L (9.4-12.3) fL Immature Gran % (Auto) 0.7 H (0.0-0.4) % Neut % (Auto) 66.5 (45-73) % Lymph % (Auto) 25.7 (20-40) % [place] % (Auto) 5.1 (2-11) % Eos % (Auto) 1.3 (0-4) % Baso % (Auto) 0.7 (0-2) % Lymph # (Auto) 2.7 (1.2-4.9) X10*3/uL [place] # (Auto) 0.5 (0.1-1.2) X10*3/uL Eos # (Auto) 0.1 (0.0-0.4) X10*3/uL Baso # (Auto) 0.1 (0.0-0.2) X10*3/uL Abs Immat Gran (auto) 0.07 H (0.00-0.03) X10*3/uL Absolute Neuts (auto) 7.1 (2.0-8.3) x10*3/uL Absolute Nucleated RBC 0.000 (0.0-0.012) X10*3/uL Nucleated RBC % (auto) 0.0 (0.0-0.2) /100WBC Sodium 137 (135-145) mmol/L Potassium 4.9 (3.3-5.1) mmol/L Chloride 100 (96-108) mmol/L Carbon Dioxide 29 (22-29) mmol/L Anion Gap 13 (12-20) BUN 20 H D (9-16) mg/dL Creatinine 0.81 (0.5-1.4) mg/dL Estim Creat Clear Calc 61.5 Estimated GFR > 60 Random Glucose 96 (60-115) mg/dL Lactic Acid 1.3 (0.5-2.0) mmol/L Calcium 9.6 (8.4-10.2) mg/dL Total Bilirubin 0.2 (0.0-1.0) mg/dL Direct Bilirubin < 0.2 (0.0-0.5) mg/dL AST 81 H (5-31) U/L ALT 127 H (0-31) U/L Alkaline Phosphatase 203 H D (39-117) U/L Total Protein 7.7 (6.5-8.0) g/dL Albumin 4.0 (3.5-5.0) g/dL COVID-19 (ARVIND) (Negative) COVID-19 Clin Com 02/05/22 Range/Units 10:07 WBC (4.8-10.8) X10*3/uL RBC (4.20-5.50) X10*6/uL Hgb (12.0-16.0) g/dl Hct (37.0-47.0) % MCV (80.0-98.0) fL MCH (27.0-33.0) pg MCHC (31.0-35.0) g/dl RDW (11.0-16.0) % Plt Count (160-400) X10*3/uL MPV (9.4-12.3) fL Immature Gran % (Auto) (0.0-0.4) % Neut % (Auto) (45-73) % Lymph % (Auto) (20-40) % [place] % (Auto) (2-11) % Eos % (Auto) (0-4) % Baso % (Auto) (0-2) % Lymph # (Auto) (1.2-4.9) X10*3/uL [place] # (Auto) (0.1-1.2) X10*3/uL Eos # (Auto) (0.0-0.4) X10*3/uL Baso # (Auto) (0.0-0.2) X10*3/uL Abs Immat Gran (auto) (0.00-0.03) X10*3/uL Absolute Neuts (auto) (2.0-8.3) x10*3/uL Absolute Nucleated RBC (0.0-0.012) X10*3/uL Nucleated RBC % (auto) (0.0-0.2) /100WBC Sodium (135-145) mmol/L Potassium (3.3-5.1) mmol/L Chloride (96-108) mmol/L Carbon Dioxide (22-29) mmol/L Anion Gap (12-20) BUN (9-16) mg/dL Creatinine (0.5-1.4) mg/dL Estim Creat Clear Calc Estimated GFR Random Glucose (60-115) mg/dL Lactic Acid (0.5-2.0) mmol/L Calcium (8.4-10.2) mg/dL Total Bilirubin (0.0-1.0) mg/dL Direct Bilirubin (0.0-0.5) mg/dL AST (5-31) U/L ALT (0-31) U/L Alkaline Phosphatase (39-117) U/L Total Protein (6.5-8.0) g/dL Albumin (3.5-5.0) g/dL COVID-19 (ARVIND) Negative (Negative) COVID-19 Clin Com See Note Discharge Plan Discharge Clinical Impression: Epidural abscess Patient Disposition: Xfer SNF Instructions: Bacteremia (ED) Additional Instructions: You need to continue IV vancomycin for minimum of 6 weeks total. Follow-up with Dr. Nolan the infectious disease doctor. Prescriptions: No Action methadone 10 mg/mL Concentrate 115 mg PO DAILY Label Comments: patient DC'd yesterday (02/04/22) vancomycin 750 mg recon soln 750 mg IV Q12H 33 Days Qty: 66 0RF Label Comments: patient DC'd yesterday (02/04/22) sennosides-docusate sodium [Senna Plus] 8.6-50 mg Tablet 1 tab PO BEDTIME 30 Days Qty: 30 0RF Label Comments: patient DC'd yesterday (02/04/22) docusate sodium 100 mg Capsule 200 mg PO DAILY 30 Days Qty: 60 0RF Label Comments: patient DC'd yesterday (02/04/22) cyclobenzaprine 5 mg Tablet 5 mg PO TID PRN (Reason: Muscle Pain) Qty: 30 0RF Label Comments: patient DC'd yesterday (02/04/22) pregabalin [Lyrica] 50 mg Capsule 50 mg PO BEDTIME 30 Days Qty: 30 0RF Label Comments: patient DC'd yesterday (02/04/22) amlodipine 5 mg tablet 5 mg PO DAILY Qty: 30 0RF Label Comments: patient DC'd yesterday (02/04/22) Referrals: Alta oNlan MD [Physician] - (MRSA bacteremia and epidural abscess)
[2022-02-05 09:18] VITALS: BP 122/55; PULSE 90; RESP 18; TEMP 36.7; O2SAT 95; BMI 17.8
[2022-02-05 10:13] LABS: MANUAL DIFF FLAG NO
[2022-02-05 10:18] LABS: Basophils Absolute Auto 0.1 X10*3/uL (0.0-0.2); Basophils Percent Auto 0.7 % (0-2); Eosinophils Absolute Auto 0.1 X10*3/uL (0.0-0.4); Eosinophils Percent Auto 1.3 % (0-4); Hematocrit 34.9 % (37.0-47.0); Hemoglobin 10.9 g/dl (12.0-16.0); Imm Gran Abs Auto 0.07 X10*3/uL (0.00-0.03); Imm Gran Pct Auto 0.7 % (0.0-0.4); Lymphocytes Absolute Auto 2.7 X10*3/uL (1.2-4.9); Lymphocytes Percent Auto 25.7 % (20-40); Mean Corpuscular HGB Conc 31.2 g/dl (31.0-35.0); Mean Corpuscular Hemoglobin 28.2 pg (27.0-33.0); Mean Corpuscular Volume 90.4 fL (80.0-98.0); Monocytes Absolute Auto 0.5 X10*3/uL (0.1-1.2); Monocytes Percent Auto 5.1 % (2-11); Neutrophils Absolute Auto 7.1 x10*3/uL (2.0-8.3); Neutrophils Percent Auto 66.5 % (45-73); Platelet Count 671 X10*3/uL (160-400); Red Blood Count 3.86 X10*6/uL (4.20-5.50); Red Cell Distribution Width 12.8 % (11.0-16.0); White Blood Count 10.6 X10*3/uL (4.8-10.8)
[2022-02-05] MEDS: vancomycin HCL 750 MG in 0.9 % Sodium Chloride 250 ML 265 MG IV ×2 (10:20→22:09)
[2022-02-05 10:25] LABS: Lactic Acid 1.3 mmol/L (0.5-2.0)
[2022-02-05 10:31] LABS: COVID-19 Test Negative (Negative)
[2022-02-05 10:32] LABS: Alanine Aminotransferase 127 U/L (0-31); Alkaline Phosphatase 203 U/L (39-117); Anion Gap 13 (12-20); Aspartate Amino Transferase 81 U/L (5-31); Bilirubin Direct < 0.2 mg/dL (0.0-0.5); Bilirubin Total 0.2 mg/dL (0.0-1.0); Blood Urea Nitrogen 20 mg/dL (9-16); Calcium 9.6 mg/dL (8.4-10.2); Carbon Dioxide 29 mmol/L (22-29); Chloride 100 mmol/L (96-108); Creatinine Clr Calc Pharmacy 61.5; Estimated Glomerular Filt Rate > 60; Glucose Random 96 mg/dL (60-115); Potassium 4.9 mmol/L (3.3-5.1); Sodium 137 mmol/L (135-145); Total Protein 7.7 g/dL (6.5-8.0)
[2022-02-05 11:29] VITALS: BP 94/58; PULSE 69; RESP 18; TEMP 36.9; O2SAT 97
--- NOTE | 2022-02-05 11:49 | PHA.MEDREC ---
Pharmacy Consult ? Medication Reconciliation Pharmacy has completed the medication reconciliation.
[2022-02-05] MEDS: Acetaminophen 325 MG TABLET 650 MG PO (12:55)
--- NOTE | 2022-02-05 14:24 | MHC.CM.ED ---
Received case management consult from ROZ Eller. Patient was discharged from [facility] on 02/04 to [facility] via BLS. Patient needs 6-8 weeks of IV antibiotics. Patient did not receive any of her medications last night and was concerned she was going to miss another dose of IV antibiotics. When patient was at Methadone clinic, patient decided to come to [facility] ER. T/W verified with [facility] that her medications were supposed to be delivered last night and weren't. Meds did arrive this morning. Patient doesnt want to return to [facility]. Patient goes to [facility] in [place] for Methadone. Patient understands she may have to go to the [place] area due to Methadone. Patient asking if she could go to a friends home for IV antibiotics. T/W explained that wasn't an otpion at this time. Patient verbalized understanding. Referral broadcasted in [facility] to all facilities contracted within 25 miles of patient's insurance. Continue to monitor for d/c needs.
[2022-02-05 18:20] VITALS: BP 103/59; PULSE 65; RESP 16; TEMP 36.6; O2SAT 97
--- NOTE | 2022-02-05 18:36 | PC.NURSE ---
THIS RN SPEAKING WITH PATIENT. PT IS CONCERNED ABOUT DVT PROFALAXIS. THIS RN AGREES THAT PATIENT SHOULD WALK IN ED EVERY SO OFTEN. MASK WILL BE WORN.
[2022-02-05] MEDS: Ibuprofen 600 MG TABLET PO (18:51)
--- NOTE | 2022-02-05 19:08 | PHA.PROG ---
Admission Date/Time: Indication: Other Weight in k.534 kg Adjusted body weight in Kg: [place] body weight in Kg: Obesity Dosing Indication % IBW: Serum Creatinine - Last 168 Hours 02/05/22 10:07 Creatinine 0.81 Estimated CrCl and GFR - Last 168 Hours 02/05/22 10:07 Estim Creat Clear Calc 61.5 Estimated GFR > 60 Vancomycin Loading Dose: N/A Current Vancomycin Dosing Regimen: 750mg Q12H Vancomycin Monitoring using AUC goal of 400 - 600 range with trough as surrogate marker: 552 mg/L Date and Time for next Vancomycin Level to be drawn: 02/06/22 @0800 Pharmacist Comments on Vancomycin Plan: Pt recently discharged, put on IV vancomycin 750mg BID at home. Continuing regimen from home, will continue to monitor. Vancomycin dosing will take advantage of [employer] as a clinical decision support tool that uses Bayesian modeling to calculate individual patient's pharmacokinetic parameters and forecast the patient's drug concentration time course with the target goal AUC 24 range of 400 - 600 mg/L/hr.
[2022-02-05 20:14] VITALS: BP 98/46; PULSE 80; RESP 14; O2SAT 98
[2022-02-05] MEDS: Sennosides/Docusate Sodium TABLET 1 TAB PO (20:17)
[2022-02-05] MEDS: Pregabalin 50 MG CAPSULE PO (20:17)
[2022-02-05 22:05] VITALS: BP 94/50; PULSE 63; RESP 16; TEMP 36.4; O2SAT 98
[2022-02-06] VITALS (10 sets, daily range): BP systolic 97–134; BP diastolic 51–73; PULSE 61–99; RESP 14–18; TEMP 36.5–36.9; O2SAT 96–100
[2022-02-06 08:53] LABS: Vancomycin Trough 13.4 mcg/mL (10.0-20.0)
[2022-02-06] MEDS: Docusate Sodium 100 MG CAPSULE 200 MG PO (09:37)
[2022-02-06] MEDS: Cyclobenzaprine HCl 5 MG TABLET PO (09:41)
[2022-02-06] MEDS: amLODIPine Besylate 5 MG TABLET PO (09:42)
[2022-02-06] MEDS: vancomycin HCL 750 MG in 0.9 % Sodium Chloride 250 ML 265 MG IV ×2 (09:42→22:09)
--- NOTE | 2022-02-06 09:52 | HE.PHANOTE ---
Addendum entered by Sandy Queen [facility] 02/07/22 11:46: VANCO TROUGH 12.9, INSIGHT STILL RECOMMENDS 750 MG Q12H WITH AN EST. AUG OF 533. CONT SAME REGIMEN Original Note: Vancomycin Dosing Addendum Vancomycin trough 13.4. patient was previously on 750 mg q12h at home. continue with current regimen. next level 02/07/22 @0800
[2022-02-06] MEDS: methADONE HCl 20 MG/2 ML ORAL.CONC 115 MG PO (11:34)
[2022-02-06] MEDS: Ibuprofen 600 MG TABLET PO (11:38)
--- NOTE | 2022-02-06 12:10 | MHC.CM.ED ---
Patient remains in ER. 20 referrals sent. [place] [facility] is still reviewing to see if patient can accept patient. Continue to monitor for d/c needs.
[2022-02-06 14:07] LABS: Creatinine Clr Calc Pharmacy 63.8; Estimated Glomerular Filt Rate > 60
--- NOTE | 2022-02-06 16:30 | MHC.CM.ED ---
Bedsearch expanded to 50 miles. No bed offers yet. Pt needs IV antibiotics. On Methadone. CM to follow for d/c needs.
--- NOTE | 2022-02-06 17:53 | PC.NURSE ---
pt a&ox3, vss, some restlessness, but pt reports that she is comfortable, denies pain at this time.
[2022-02-06] MEDS: Pregabalin 50 MG CAPSULE PO (22:08)
[2022-02-06] MEDS: Sennosides/Docusate Sodium TABLET 1 TAB PO (22:09)
[2022-02-07] VITALS: BP 154/95; PULSE 116; RESP 22
--- NOTE | 2022-02-07 00:29 | PC.NURSE ---
pt requesting Motrin for 7/10 neck pain, provider ok'd verbal order placed.
[2022-02-07] MEDS: Ibuprofen 600 MG TABLET PO (00:38)
[2022-02-07 05:03] VITALS: BP 136/84; PULSE 88; RESP 14; TEMP 36.7; O2SAT 98
[2022-02-07] MEDS: amLODIPine Besylate 5 MG TABLET PO (08:15)
[2022-02-07] MEDS: methADONE HCl 20 MG/2 ML ORAL.CONC 115 MG PO (08:16)
[2022-02-07] MEDS: Docusate Sodium 100 MG CAPSULE 200 MG PO (09:37)
--- NOTE | 2022-02-07 09:51 | MHC.CM.ED ---
Patient remains in ER. Patient will need 6 weeks of IV antibiotics. Referral broadcasted within 50 miles. No bed offers yet. Continue to monitor for d/c needs.
[2022-02-07] MEDS: vancomycin HCL 750 MG in 0.9 % Sodium Chloride 250 ML 265 MG IV ×2 (10:39→22:21)
[2022-02-07 11:04] LABS: Creatinine Clr Calc Pharmacy 66.4; Estimated Glomerular Filt Rate > 60
[2022-02-07 11:11] LABS: Vancomycin Trough 12.9 mcg/mL (10.0-20.0)
[2022-02-07 14:52] LABS: Amphetamine Screen Urine Not Detected (Not Detect); Barbiturates, Urine Not Detected (Not Detect); Benzodiazepines Screen Urine Not Detected (Not Detect); Cannabinoid Screen Urine Not Detected (Not Detect); Cocaine Screen Urine Not Detected (Not Detect); Fentanyl, urine POSITIVE (Not Detect); Opiate Screen Urine Not Detected (Not Detect); Phencyclidine Screen Urine Not Detected (Not Detect)
[2022-02-07 18:45] VITALS: BP 126/68; PULSE 75; RESP 18; TEMP 36.6; O2SAT 100
[2022-02-07] MEDS: Cyclobenzaprine HCl 5 MG TABLET PO (18:47)
[2022-02-07 19:46] VITALS: PULSE 85; RESP 12; O2SAT 97
[2022-02-07] MEDS: Sennosides/Docusate Sodium TABLET 1 TAB PO (22:20)
[2022-02-07] MEDS: Pregabalin 50 MG CAPSULE PO (22:20)
[2022-02-07 23:47] VITALS: BP 120/69; PULSE 76; RESP 16; O2SAT 97
[2022-02-07] MEDS: Ibuprofen 400 MG TABLET PO (23:49)
[2022-02-08 06:17] VITALS: RESP 12
[2022-02-08 07:05] VITALS: BP 107/50; PULSE 65; RESP 16; TEMP 36.4; O2SAT 100
[2022-02-08 07:36] LABS: Creatinine Clr Calc Pharmacy 63.8; Estimated Glomerular Filt Rate > 60
[2022-02-08] MEDS: amLODIPine Besylate 5 MG TABLET PO (09:37)
[2022-02-08] MEDS: Docusate Sodium 100 MG CAPSULE 200 MG PO (09:41)
[2022-02-08] MEDS: vancomycin HCL 750 MG in 0.9 % Sodium Chloride 250 ML 265 MG IV ×2 (09:42→22:34)
[2022-02-08] MEDS: methADONE HCl 20 MG/2 ML ORAL.CONC 115 MG PO (09:44)
[2022-02-08 09:46] VITALS: BP 126/68; PULSE 86; RESP 18; TEMP 36.9; O2SAT 98
[2022-02-08] MEDS: Ibuprofen 400 MG TABLET PO ×2 (14:26→22:36)
[2022-02-08 21:50] LABS: Vancomycin Trough 14.9 mcg/mL (10.0-20.0)
--- NOTE | 2022-02-08 21:59 | HE.PHANOTE ---
Vancomycin Addendum Trough today at 14.9. Patient is therapeutic. Renal function is stable. Continue current regimen of 750 mg Q12H, expected AUC 516 with a trough of 15.5. Next trough to be drawn after 3 dose on 11/10 @ 0800. Marzena Finnegan, AnandD
[2022-02-08] MEDS: Sennosides/Docusate Sodium TABLET 1 TAB PO (22:36)
[2022-02-08] MEDS: Pregabalin 50 MG CAPSULE PO (22:36)
--- NOTE | 2022-02-08 22:50 | PC.NURSE ---
Assumed care of pt Pt moved to overflow bed 9 Pt aware of plan: looking for placement at rehab facility that can give her methadone and IV abx. AxO x 4, clear and complete sentences complete ROM intact Ambulatory Pt medicated per OCT Pt tolerating antibiotics Will continue to monitor
--- NOTE | 2022-02-09 04:21 | PC.NURSE ---
Pt up and ambulatory to bathroom NAD Will continue to monitor
[2022-02-09 08:12] VITALS: BP 106/73; PULSE 68; RESP 20; TEMP 36.4; O2SAT 96
--- NOTE | 2022-02-09 08:35 | MHC.RECOVSUP ---
Recovery Support note: Patient is a 51 year old Argentine speaking female currently awaiting SNF placement for IV antibiotics. This lead technical writer met with patient to discuss her substance use and mental health. Patient reports she has was previously using IV heroin however has not used in about a month, stating that the last time she used was prior to her hospital visit on 01/23. Patient reports she had been sober for 5 years however relapsed in 2018 after the of her son. Patient states she had been wanting to stop using however was having difficulty due to lack of support. Patient reports her time in the hospital has allowed her to reconnect with her family and develop a good support system and that she is confident in her ability to maintain sobriety after discharge. Patient reports she has been on methadone for a long time and finds it helpful to her recovery. Patient denies SI/HI/AH/VH and reports no history of depression. Patient reports she has anxiety at times however is able to manage it utilizing her coping skills. Discussed case with human services case manager.
[2022-02-09] MEDS: methADONE HCl 20 MG/2 ML ORAL.CONC 115 MG PO (10:46)
[2022-02-09] MEDS: vancomycin HCL 750 MG in 0.9 % Sodium Chloride 250 ML 265 MG IV ×2 (10:46→21:41)
[2022-02-09] MEDS: Docusate Sodium 100 MG CAPSULE 200 MG PO (10:48)
[2022-02-09] MEDS: amLODIPine Besylate 5 MG TABLET PO (10:48)
--- NOTE | 2022-02-09 13:17 | MHC.CM.ED ---
Addendum entered by Debra Jimenez 02/09/22 14:43: Exemption letter obtained. Per Prema at [facility], they are still trying to verify with Methadone clinic. Original Note: Patient remains in ER overflow. [facility] is still trying to see if they have a bed available. Patient will need an exemption letter from [facility]. Letter requested from [facility] by T/W. Continue to monitor for d/c needs.
[2022-02-09] MEDS: Ibuprofen 400 MG TABLET PO (17:44)
--- NOTE | 2022-02-09 18:27 | PC.NURSE ---
PT SEEN BY MARILU FROM CARE TEAM. PT DENIES N/V NO SOB NO COMPLAINTS
--- NOTE | 2022-02-09 19:11 | PC.NURSE ---
patient took a shower .
[2022-02-09 20:00] VITALS: BP 100/52; PULSE 72; RESP 16; TEMP 36.2; O2SAT 98
[2022-02-09] MEDS: Sennosides/Docusate Sodium TABLET 1 TAB PO (21:41)
[2022-02-09] MEDS: Pregabalin 50 MG CAPSULE PO (21:41)
[2022-02-10] MEDS: Ibuprofen 400 MG TABLET PO ×2 (02:53→15:33)
--- NOTE | 2022-02-10 02:54 | PC.NURSE ---
This RN assumed care at 1900. Patient is intrusive while RN is caring for other patients, requesting Ibuprofen. Patient told that she would have to wait until RN is done settling other patient. This RN on phone receiving report and patient stands at the desk, continues to demand Ibuprofen while RN is on phone. RN set boundaries with patient regarding intrusive behavior, and this patient became irate, yelling Why won't you help me? I'm reporting you! . Patient medicated per MAR. Will continue to monitor per MD orders.
[2022-02-10 07:44] VITALS: BP 126/63; PULSE 69; RESP 16; TEMP 36.5
--- NOTE | 2022-02-10 08:17 | MHC.CM.ED ---
Addendum entered by Debra Jimenez 02/10/22 09:14: Received telephone call from [facility]ma [facility] ([place], [place]). They are going to for insurance auth. They will be sending a release of info form for patient to sign that way their facility can speak to the methadone clinic. Original Note: Patient remains in ER overflow. [facility] letter has been obtained. [facility] clinic. Continue to monitor for d/c needs.
[2022-02-10] MEDS: amLODIPine Besylate 5 MG TABLET PO (10:10)
[2022-02-10] MEDS: methADONE HCl 20 MG/2 ML ORAL.CONC 115 MG PO (10:10)
[2022-02-10] MEDS: vancomycin HCL 750 MG in 0.9 % Sodium Chloride 250 ML 265 MG IV ×2 (10:11→22:49)
[2022-02-10] MEDS: Docusate Sodium 100 MG CAPSULE 200 MG PO (10:11)
[2022-02-10 12:03] VITALS: BP 142/78; PULSE 81; RESP 16; TEMP 36.4; O2SAT 98
--- NOTE | 2022-02-10 12:16 | HE.PHANOTE ---
Vancomycin Addenum SCr has not been drawn in over 24 hours. Trough not drawn prior to dose. Reorder labs for 02/10 @ 2000 prior to PM dose at 2200. Will have PM RPh call overflow unit to remind them to get lab drawn. Marzena Finnegan, AnandD
[2022-02-10 16:34] VITALS: BP 95/56; PULSE 77; RESP 15; TEMP 36.4; O2SAT 97
[2022-02-10] MEDS: Sennosides/Docusate Sodium TABLET 1 TAB PO (21:37)
[2022-02-10] MEDS: Pregabalin 50 MG CAPSULE PO (21:37)
[2022-02-10 21:50] LABS: Creatinine Clr Calc Pharmacy 53.6; Estimated Glomerular Filt Rate > 60
[2022-02-10 21:58] LABS: Vancomycin Trough 17.4 mcg/mL (10.0-20.0)
--- NOTE | 2022-02-10 22:11 | HE.PHANOTE ---
vancomycin addendum level is increasing, tonight is 17.4, will recheck level and if further increasing may need to back down on dose
[2022-02-11 08:15] LABS: Creatinine Clr Calc Pharmacy 60.8; Estimated Glomerular Filt Rate > 60
[2022-02-11 08:40] LABS: Vancomycin Trough 18.3 mcg/mL (10.0-20.0)
--- NOTE | 2022-02-11 08:55 | HE.PHANOTE ---
Vancomycin Addendum Trough today still rising at 18.3. Renal function is better than yesterday therefore we will continue same dose 750 mg Q12H. Decrease dose will cause patient to have subtherapeutic levels. Will draw another level after 2 dose tomorrow 02/12 at 0800 Marzena Finnegan, AnandD
--- NOTE | 2022-02-11 09:25 | MHC.CM.ED ---
Addendum entered by Debra Jimenez 02/11/22 11:52: Covid is negative. Patient will transfer to [facility] via chair van at 3pm. Patient, Lavern EPSTEIN and Daphnie CROWE aware. Original Note: Patient remains in ER. [facility] requesting repeat Covid swab and last dose letter for Methadone. Covid ordered. If negative, patient will transfer to [facility] via BLS at 3pm. Continue to monitor for d/c needs.
[2022-02-11 09:34] VITALS: BP 133/72; PULSE 76; RESP 16; TEMP 36.8; O2SAT 99
[2022-02-11] MEDS: Docusate Sodium 100 MG CAPSULE 200 MG PO (10:09)
[2022-02-11] MEDS: amLODIPine Besylate 5 MG TABLET PO (10:09)
[2022-02-11] MEDS: vancomycin HCL 750 MG in 0.9 % Sodium Chloride 250 ML 265 MG IV (10:10)
[2022-02-11 10:13] LABS: COVID-19 Test Negative (Negative)
[2022-02-11] MEDS: methADONE HCl 20 MG/2 ML ORAL.CONC 115 MG PO (10:20)
== END 2022-02-11 14:30 | disposition skilled nursing facility (03) ==
PROVIDERS: Emergency Medicine; Nurse Practitioner Family; Physician Assistant; Emergency Provider Emergency Medicine; PCP Internal Medicine
DX: G06.2 Extradural and subdural abscess, unspecified (principal); B95.62 Methicillin resistant Staphylococcus aureus infection as the cause of diseases classified elsewhere; R78.81 Bacteremia; Z76.0 Encounter for issue of repeat prescription; Z79.2 Long term (current) use of antibiotics; F11.20 Opioid dependence, uncomplicated; Z20.822 Contact with and (suspected) exposure to COVID-19
CPT/HCPCS: 36415; 80048; 80076; 80202; 80307; 82565; 83605; 85025; 87040; 87635; 96374; 96376; 99285; J3370

== ENCOUNTER 2022-03-05 14:41 | Emergency (ER) | payer OTHER, SELFPAY ==
[2022-03-05 15:14] VITALS: BP 107/59; PULSE 66; RESP 20; TEMP 36.7; O2SAT 97
== END 2022-03-05 20:32 | disposition left against medical advice (07) ==
LOC: HO.ED 20:26
PROVIDERS: Emergency Provider Emergency Medicine; PCP Internal Medicine
DX: Z47.2 Encounter for removal of internal fixation device (principal)
CPT/HCPCS: 99281; 99282

== ENCOUNTER 2022-04-21 09:35 | Outpatient (REF) | payer MEDICAID, SELFPAY ==
[2022-04-21 10:23] LABS: MANUAL DIFF FLAG NO
[2022-04-21 10:50] LABS: Basophils Percent Auto 0.5 % (0-2); Eosinophils Absolute Auto 0.1 X10*3/uL (0.0-0.4); Eosinophils Percent Auto 1.9 % (0-4); Hematocrit 37.6 % (37.0-47.0); Hemoglobin 12.3 g/dl (12.0-16.0); Imm Gran Abs Auto 0.01 X10*3/uL (0.00-0.03); Imm Gran Pct Auto 0.2 % (0.0-0.4); Lymphocytes Absolute Auto 2.7 X10*3/uL (1.2-4.9); Lymphocytes Percent Auto 42.6 % (20-40); Mean Corpuscular HGB Conc 32.7 g/dl (31.0-35.0); Mean Corpuscular Hemoglobin 28.1 pg (27.0-33.0); Mean Corpuscular Volume 85.8 fL (80.0-98.0); Mean Platelet Volume 10.1 fL (9.4-12.3); Monocytes Absolute Auto 0.4 X10*3/uL (0.1-1.2); Monocytes Percent Auto 5.9 % (2-11); Neutrophils Absolute Auto 3.1 x10*3/uL (2.0-8.3); Neutrophils Percent Auto 48.9 % (45-73); Platelet Count 288 X10*3/uL (160-400); Red Blood Count 4.38 X10*6/uL (4.20-5.50); Red Cell Distribution Width 12.6 % (11.0-16.0); White Blood Count 6.3 X10*3/uL (4.8-10.8)
[2022-04-21 11:30] LABS: Alanine Aminotransferase 12 U/L (0-31); Albumin Level 4.1 g/dL (3.5-5.0); Alkaline Phosphatase 97 U/L (39-117); Anion Gap 15 (12-20); Aspartate Amino Transferase 15 U/L (5-31); Bilirubin Total 0.4 mg/dL (0.0-1.0); Blood Urea Nitrogen 15 mg/dL (9-16); C Reactive Protein 0.86 mg/dL (< or = 0.50); Calcium 9.4 mg/dL (8.4-10.2); Carbon Dioxide 27 mmol/L (22-29); Chloride 102 mmol/L (96-108); Cholesterol 253 mg/dL; Estimated Glomerular Filt Rate > 60; Glucose Random 118 mg/dL (60-115); HDL Cholesterol 48 mg/dL; LDL Cholesterol Calculated 177 mg/dl; Potassium 4.6 mmol/L (3.3-5.1); Sodium 139 mmol/L (135-145); Triglycerides 143 mg/dL
[2022-04-26 23:52] LABS: Estrogen 109.1 pg/mL
== END 2022-04-21 09:36 | disposition home or self-care (01) ==
LOC: HO.LAB 09:35
PROVIDERS: PCP Internal Medicine; Visit Provider Internal Medicine
DX: E78.00 Pure hypercholesterolemia, unspecified (principal); B95.62 Methicillin resistant Staphylococcus aureus infection as the cause of diseases classified elsewhere; G06.1 Intraspinal abscess and granuloma; F11.11 Opioid abuse, in remission; Z79.891 Long term (current) use of opiate analgesic
CPT/HCPCS: 36415; 80053; 80061; 82672; 85025; 86140

== ENCOUNTER 2022-05-15 15:01 | Outpatient (REF) | payer MEDICAID, SELFPAY | END 2022-05-15 15:02 | disposition home or self-care (01) | LOC: HO.MRI 15:01 | PROVIDERS: Visit Provider Internal Medicine | DX: Z13.89 Encounter for screening for other disorder (principal) ==

== ENCOUNTER → 2022-05-25 10:53 | Outpatient (BNVA) | payer MEDICAID, SELFPAY | PROVIDERS: PCP Internal Medicine; Visit Provider Internal Medicine | DX: G06.1 Intraspinal abscess and granuloma (principal) | CPT/HCPCS: 99212 ==

== ENCOUNTER 2022-07-02 08:52 | Outpatient (REF) | payer MEDICAID, SELFPAY ==
--- NOTE | ~2022-07-02 | XR_ITS ---
EXAMINATION: XR PELVIS CLINICAL INFORMATION: Pain COMPARISON: Previous pelvis x-ray May 2019 TECHNIQUE: AP view of the pelvis. FINDINGS: There is severe arthritis at both hip joints with joint space narrowing, osteophyte formation and subchondral cyst formation, left greater than right. This is increased from May 2019 exam. Bones of the pelvis are normal. There are degenerative changes of the visualized lower lumbar spine. Soft tissues are unremarkable. XR/XR pelvis 1-2V IMPRESSION: Severe bilateral hip arthritis.
== END 2022-07-02 08:53 | disposition home or self-care (01) ==
LOC: HO.HOSX 08:52
PROVIDERS: Visit Provider Orthopaedic Surgery
DX: M16.0 Bilateral primary osteoarthritis of hip (principal)
CPT/HCPCS: 72170; 99202

== ENCOUNTER 2022-07-13 15:21 | Outpatient (REF) | payer MEDICAID, SELFPAY ==
[2022-07-13 16:39] LABS: Alanine Aminotransferase 17 U/L (0-31); Alkaline Phosphatase 106 U/L (39-117); Anion Gap 13 (12-20); Aspartate Amino Transferase 12 U/L (5-31); Bilirubin Total 0.2 mg/dL (0.0-1.0); Blood Urea Nitrogen 24 mg/dL (9-16); C Reactive Protein 0.65 mg/dL (< or = 0.50); Calcium 9.4 mg/dL (8.4-10.2); Carbon Dioxide 26 mmol/L (22-29); Chloride 104 mmol/L (96-108); Cholesterol 157 mg/dL; Estimated Glomerular Filt Rate > 60; Glucose Random 152 mg/dL (60-115); HDL Cholesterol 45 mg/dL; LDL Cholesterol Calculated 73 mg/dl; Potassium 4.3 mmol/L (3.3-5.1); Sodium 139 mmol/L (135-145); Total Protein 6.6 g/dL (6.5-8.0); Triglycerides 199 mg/dL
== END 2022-07-13 15:22 | disposition home or self-care (01) ==
LOC: HO.LAB 15:21
PROVIDERS: Visit Provider Internal Medicine
DX: Z00.01 Encounter for general adult medical examination with abnormal findings (principal); E78.00 Pure hypercholesterolemia, unspecified; F11.11 Opioid abuse, in remission; G06.2 Extradural and subdural abscess, unspecified
CPT/HCPCS: 36415; 80053; 80061; 86140

== ENCOUNTER → 2022-12-09 08:55 | Outpatient (BNVA) | payer MEDICAID, SELFPAY | PROVIDERS: PCP Internal Medicine; Visit Provider Orthopaedic Surgery ==

== ENCOUNTER 2022-12-09 10:17 | Outpatient (REF) | payer MEDICAID, SELFPAY ==
[2022-12-09 14:12] LABS: MANUAL DIFF FLAG NO
[2022-12-09 14:22] LABS: Basophils Percent Auto 0.5 % (0-2); Eosinophils Absolute Auto 0.2 X10*3/uL (0.0-0.4); Eosinophils Percent Auto 2.8 % (0-4); Hematocrit 37.7 % (37.0-47.0); Hemoglobin 12.7 g/dl (12.0-16.0); Imm Gran Abs Auto 0.02 X10*3/uL (0.00-0.03); Imm Gran Pct Auto 0.3 % (0.0-0.4); Lymphocytes Percent Auto 33.4 % (20-40); Mean Corpuscular HGB Conc 33.7 g/dl (31.0-35.0); Mean Corpuscular Hemoglobin 30.2 pg (27.0-33.0); Mean Corpuscular Volume 89.8 fL (80.0-98.0); Mean Platelet Volume 10.1 fL (9.4-12.3); Monocytes Absolute Auto 0.4 X10*3/uL (0.1-1.2); Neutrophils Absolute Auto 3.4 x10*3/uL (2.0-8.3); Platelet Count 303 X10*3/uL (160-400); Red Cell Distribution Width 13.2 % (11.0-16.0); White Blood Count 6.1 X10*3/uL (4.8-10.8)
[2022-12-09 14:55] LABS: Alanine Aminotransferase 10 U/L (0-31); Albumin Level 4.4 g/dL (3.5-5.0); Alkaline Phosphatase 97 U/L (39-117); Anion Gap 13 (12-20); Aspartate Amino Transferase 14 U/L (5-31); Bilirubin Total 0.5 mg/dL (0.0-1.0); Blood Urea Nitrogen 17 mg/dL (9-16); Calcium 9.6 mg/dL (8.4-10.2); Carbon Dioxide 26 mmol/L (22-29); Chloride 103 mmol/L (96-108); Cholesterol 262 mg/dL; Estimated Glomerular Filt Rate > 60; Glucose Random 94 mg/dL (60-115); HDL Cholesterol 42 mg/dL; LDL Cholesterol Calculated 168 mg/dl; Potassium 4.4 mmol/L (3.3-5.1); Sodium 138 mmol/L (135-145); Total Protein 7.1 g/dL (6.5-8.0); Triglycerides 260 mg/dL
[2022-12-09 15:02] LABS: Thyroid Stimulating Hormone 0.53 uIU/mL (0.32-4.0); Vitamin D 25-OH Total 28.1 ng/mL (>30)
[2022-12-09 15:09] LABS: Amphetamine Screen Urine Not Detected (Not Detect); Barbiturates, Urine Not Detected (Not Detect); Benzodiazepines Screen Urine Not Detected (Not Detect); Cannabinoid Screen Urine POSITIVE (Not Detect); Cocaine Screen Urine Not Detected (Not Detect); Fentanyl, urine Not Detected (Not Detect); Opiate Screen Urine Not Detected (Not Detect); Phencyclidine Screen Urine Not Detected (Not Detect)
== END 2022-12-09 10:18 | disposition home or self-care (01) ==
LOC: HO.10HDL 10:17
PROVIDERS: Internal Medicine; Visit Provider Orthopaedic Surgery
DX: F19.10 Other psychoactive substance abuse, uncomplicated (principal); E78.00 Pure hypercholesterolemia, unspecified; I10 Essential (primary) hypertension; M16.0 Bilateral primary osteoarthritis of hip; Z79.891 Long term (current) use of opiate analgesic
CPT/HCPCS: 36415; 80053; 80061; 80307; 82306; 84443; 85025

== ENCOUNTER 2023-01-13 10:17 | Outpatient (REF) | payer MEDICAID, SELFPAY ==
[2023-01-13 11:01] LABS: Amphetamine Screen Urine Not Detected (Not Detect); Barbiturates, Urine Not Detected (Not Detect); Benzodiazepines Screen Urine Not Detected (Not Detect); Cannabinoid Screen Urine POSITIVE (Not Detect); Cocaine Screen Urine Not Detected (Not Detect); Fentanyl, urine Not Detected (Not Detect); Opiate Screen Urine Not Detected (Not Detect); Phencyclidine Screen Urine Not Detected (Not Detect)
== END 2023-01-13 10:18 | disposition home or self-care (01) ==
LOC: HO.10HDL 10:17
PROVIDERS: Visit Provider Orthopaedic Surgery
DX: F19.10 Other psychoactive substance abuse, uncomplicated (principal); M16.0 Bilateral primary osteoarthritis of hip
CPT/HCPCS: 80307

== ENCOUNTER 2023-02-11 08:38 | Outpatient (REF) | payer MEDICAID, SELFPAY ==
[2023-02-11 11:46] LABS: Amphetamine Screen Urine Not Detected (Not Detect); Barbiturates, Urine Not Detected (Not Detect); Benzodiazepines Screen Urine Not Detected (Not Detect); Cannabinoid Screen Urine POSITIVE (Not Detect); Cocaine Screen Urine Not Detected (Not Detect); Fentanyl, urine Not Detected (Not Detect); Opiate Screen Urine Not Detected (Not Detect); Phencyclidine Screen Urine Not Detected (Not Detect)
== END 2023-02-11 08:39 | disposition home or self-care (01) ==
LOC: HO.10HDL 08:38
PROVIDERS: Visit Provider Orthopaedic Surgery
DX: F19.10 Other psychoactive substance abuse, uncomplicated (principal); F10.10 Alcohol abuse, uncomplicated
CPT/HCPCS: 80307

== ENCOUNTER 2023-04-01 09:34 | Outpatient (AMB) | payer MEDICAID, SELFPAY ==
--- NOTE | 2023-04-01 09:36 | MHC.OFFVIS ---
Intake Intake Visit Reasons: OV - Discuss AMIE - Bilateral Hip Intake Note: Noemí is a 52 year old female who presents today for a follow up of severe bilateral hip OA. She was last seen in June of 2022 where total hip replacement was discussed, but put on hold due to IVDU. Last known date of use was 01/23/22, surgery was to be done after a year clean from IVDU. Allergies Sulfa (Sulfonamide Antibiotics) Allergy (Mild, Verified 05/25/22 11:00) Unknown HPI OV - Discuss AMIE - Bilateral Hip HPI Details Noemí is a 52 year old woman who returns to discuss her severe bilateral hip OA. She was last seen on 07/02/22 and surgery was discussed, however she has an Hx of IVDU for several years, and said she last used on 01/23/22. She is currently on methadone, 115mg daily, and says she has remained clean. She attends group addiction meetings and say she no longer interacts with her old friends from when she would use drugs. She has pain with daily and weight-bearing activity, along with a severe gait disturbance, for which she uses a cane. She can't move around without pain and says most of her time is spent in bed. She is severely limited. She feels her left hip is more painful, but they both bother her. She says her pain began with hip bursitis in 2015, and she has been unable to walk normally or without pain since. She lives on the 4th floor of her building, without an elevator, and finds stairs very difficult. She was hospitalized in 12/2021 with an epidural abscess related to IVDU [facility] Medical History (Updated 12/09/22 @ 09:01 by Jaimie Norris RN) Hypertension Methadone dependence Polysubstance abuse Surgical History History of repair of congenital cleft palate Social History Household Members: None Housing: Apartment Do you presently have visiting nurse or other home services: No Alcohol intake: never Patient Tobacco Use Status: Former Tobacco user Quit Date: 1week ago Tobacco use type: Cigarette Cigarettes Per Day: 5 e-Cigarette/Vaping Use: Former Use Substance Use Type: Opiates service: No Current occupational status: unemployed Review of Systems Const All systems reviewed & are unremarkable except as noted in HPI and below Physical Exam Const General: no acute distress and alert Orientation/consciousness: patient oriented x3 Neuro General: patient oriented x3 Extrem Other: Bilateral Hips: severely antalgic gait Ambulates with a cane Extremely limited ROM, L>R Left hip is externally rotated and she cannot abduct or adduct her hip. She is unable to FF her hip beyond ~40 degrees nl dorsalis pedis pulse Otherwise overall healthy appearing with good dentition ( dentures) Psych Appearance: grossly normal Affect: normal affect Attitude: cooperative Results Reviewed Results Reviewed: I personally reviewed relevant radiographs. Severe bilateral hip OA Assessment & Plan Assessment & Plan (1) Bilateral primary osteoarthritis of hip: Code(s): M16.0 - Bilateral primary osteoarthritis of hip Plan: This is a 52 year old woman with severe bilateral hip OA with a history of IVDU. Her last date of use was 01/23/22. Her daily function is abysmal given severe bilateral hip OA. She is unable to engage in any activity without pain. She has severe gait disturbance and ambulates poorly with an assistive cane. I discussed treatment options. I recommend a AMIE, and she would like to begin with the left hip. She reports being clean for ~15 months now, is on Methadone and attends meetings concerning addiction. She no longer has any issues with Dentition, and I think she would greatly benefit from surgery. She is potentially at an increased risk of infection, as she has a hx of Sepsis and an epidural abscess in 12/2021. I discussed the risks, benefits, and alternatives including, but not limited to, the risk of pain, infection, stiffness, need for further surgery as well as potential medical complications such as blood clots, pulmonary embolism and cardiac complications. I discussed the recovery timeline and process as well as the importance of PT. Noemí is a good candidate for this surgery, and she wishes to proceed with this decision. She will speak with Jaimie to schedule this procedure. Plan Scribed for Sammy Bautista MD by Jabier Roque, medical payment poster, on 04/01/23 at 9:55 AM, EST. Coding Level of Care Code Est Pt Level 4 (90413) Diagnoses Bilateral primary osteoarthritis of hip M16.0
== END 2023-04-01 10:01 | disposition home or self-care (01) ==
PROVIDERS: PCP Internal Medicine; Visit Provider Orthopaedic Surgery
DX: M16.0 Bilateral primary osteoarthritis of hip (principal)
CPT/HCPCS: 99214

== ENCOUNTER → 2023-04-01 09:34 | Outpatient (BNVA) | payer MEDICAID, SELFPAY | PROVIDERS: PCP Internal Medicine; Visit Provider Orthopaedic Surgery | DX: M16.0 Bilateral primary osteoarthritis of hip (principal) | CPT/HCPCS: 99212 ==

== ENCOUNTER → 2023-05-06 10:06 | Outpatient (BNVA) | payer MEDICAID, SELFPAY | PROVIDERS: PCP Internal Medicine; Visit Provider Orthopaedic Surgery ==

== ENCOUNTER 2023-06-09 09:32 | Outpatient (AMB) | payer MEDICAID, SELFPAY ==
--- NOTE | 2023-06-09 09:35 | MHC.OFFVIS ---
Intake Vital Signs 06/09/23 09:37 Height 5 ft 6 in Weight 130 lb BMI 21.0 Intake Visit Reasons: Preop LT AMIE 06/15/23 NE Intake Note: Noemí a 52 year old female who presents today for a preoperative left AMIE, DOS 06/15/23 NE. Pain management agreement reviewed and signed. Allergies Sulfa (Sulfonamide Antibiotics) Allergy (Mild, Verified 06/09/23 09:39) Unknown Medication List - Last Reconciled 06/09/23 by Manish Rosario PA-C acetaminophen 1,000 mg PO Q6H PRN [Elevated toilet seat duration-lifetime] ibuprofen 600 mg PO TID methadone 115 mg PO DAILY rosuvastatin 20 mg PO DAILY walker Folding Front wheeled walker HPI HPI Comments History of Present Illness Details Ms Brown presents to the office today for preop visit. She is scheduled for Left total hip arthroplasty with Dr. Bautista. She continues to have ongoing pain and difficulty with ambulation in the left hip, which is affecting her quality of life; therefore, she has elected to move forward with surgery. [facility] Medical History (Updated 06/04/23 @ 12:49 by Carleen Short RN) Abscess PTSD (post-traumatic stress disorder) Anxiety Elevated cholesterol Methadone dependence Polysubstance abuse Surgical History History of repair of congenital cleft palate Social History Household Members: None Housing: Apartment Are you a primary post acute care nurse to a significant other at home: No Do you presently have visiting nurse or other home services: Yes (JIG OPERATOR) Alcohol intake: never Patient Tobacco Use Status: Current everyday Tobacco user Tobacco use type: Cigarette Cigarettes Per Day: 10 Years Smoked: 40 e-Cigarette/Vaping Use: Former Use Substance Use Type: Crack/Cocaine, Former Substance User, Heroin and Marijuana Substance Use Type Other:: methadone-currently 115 mg daily (take home) Substance Use Frequency: Chronic Longstanding Substance Use Frequency Other:: clean heroin/cocaine since 12/2021-uses marijuana~5X/week service: No Current occupational status: unemployed Review of Systems Const All systems reviewed & are unremarkable except as noted in HPI and below Physical Exam Vital Signs: BMI result Body Mass Index 21.0 Const General: cooperative and no acute distress Orientation/consciousness: patient oriented x3 HEENT Head: Yes normal to inspection, Yes normocephalic and Yes atraumatic Eyes General: appearance normal, both eyes and all related structures Neck Neck: Yes normal visual inspection and Yes no lymphadenopathy Resp Effort & Inspection: normal respiratory effort and able to speak in complete sentences Cardio Rate: regular rate Peripheral pulses: Peripheral pulses 2+ throughout GI Inspection: Yes normal to inspection Palpation (GI): Soft to palpation Skin General skin exam: no rashes or lesions noted Neuro General: patient oriented x3 Extrem Other: Left hip: Normal to inspection. She has significant pain with ROM of hip with decreased motion. NVI. Psych Appearance: grossly normal Mental Status: mental status grossly normal Assessment & Plan Assessment & Plan (1) Bilateral primary osteoarthritis of hip: Code(s): M16.0 - Bilateral primary osteoarthritis of hip Plan: I discussed in detail the procedure and what to expect pre and post operatively. We discussed the risks, benefits and alternatives to the surgery as well as the rehabilitation course. The risks; which include, but are not limited to infection, bleeding, nerve injury, ongoing pain, swelling, and stiffness, perioperative risk of injury to bones and soft tissues, and blood clots. I?ve answered all questions and with their understanding they have consented to move forward with Left total hip arthroplasty with Dr. Bautista Medications: New [SHOWER CHAIR] As directed 1 ea 0RF M16.0 - Bilateral primary osteoarthritis of hip [Grab Bar] As directed 1 ea 0RF NS M16.0 - Bilateral primary osteoarthritis of hip Patient Instructions: Scribed for Manish Rosario PA-C, by Rafael Fierro medical assisting program director, on 06/09/2023 at 9:30 AM EST. Manish Mccarty PA-C, have personally reviewed and agree with the information entered by the scribe. Coding Level of Care Code Est Pt Level 3 (66226) Diagnoses Bilateral primary osteoarthritis of hip M16.0
[2023-06-09 09:37] VITALS: BMI 21.0
== END 2023-06-09 09:50 | disposition home or self-care (01) ==
PROVIDERS: PCP Internal Medicine; Visit Provider Physician Assistant
DX: M16.0 Bilateral primary osteoarthritis of hip (principal)
CPT/HCPCS: 99213

== ENCOUNTER → 2023-06-09 09:32 | Outpatient (BNVA) | payer MEDICAID, SELFPAY | PROVIDERS: PCP Internal Medicine; Visit Provider Physician Assistant | DX: M16.0 Bilateral primary osteoarthritis of hip (principal) | CPT/HCPCS: 99212 ==

== ENCOUNTER 2023-06-15 06:05 | Inpatient (IN) | payer MEDICAID, SELFPAY ==
[2023-06-04 12:49] VITALS: BMI 21.0
[2023-06-08 09:27] LABS: Anion Gap 15 (12-20); Blood Urea Nitrogen 16 mg/dL (9-16); Calcium 9.9 mg/dL (8.4-10.2); Carbon Dioxide 27 mmol/L (22-29); Chloride 103 mmol/L (96-108); Creatinine Clr Calc Pharmacy 72.9; Estimated Glomerular Filt Rate > 60; Glucose Random 86 mg/dL (60-115); Sodium 140 mmol/L (135-145)
--- NOTE | 2023-06-14 11:05 | P.CONAN_ITS ---
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 (Acute) Polysubstance abuse (Acute) Past Medical History Medical History Abscess PTSD (post-traumatic stress disorder) Anxiety Elevated cholesterol Methadone dependence Polysubstance abuse Surgical History Surgical History History of repair of congenital cleft palate Social History Social History Household Members: None Housing: Apartment Are you a primary home care provider to a significant other at home: No Do you presently have 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 If so, by whom?: No Are you DNR?: No Advance Directives: No (father is primary contact) Advance Directives Information Provided: Yes (brochure given) Advance Directives on File: No Recently lost weight without trying: No Eating poorly because of decreased appetite: No Nutrition Risks: No Nutritional Risk Poor oral hygiene: Yes (upper partial, no lower teeth or lower denture) service: No Current occupational status: unemployed Meds Allergies Allergy/AdvReac Type Severity Reaction Status Date / Time Sulfa (Sulfonamide Allergy Mild Unknown Verified 06/15/23 06:53 Antibiotics) Home Medications Medication Instructions Recorded Confirmed Last Taken Type methadone 10 mg/mL oral concentrate 115 mg PO DAILY 01/30/22 06/09/23 06/15/23 05:30 History rosuvastatin 20 mg tablet 20 mg PO DAILY 07/02/22 06/15/23 06/14/23 History ibuprofen 600 mg tablet 600 mg PO TID 05/06/23 06/15/23 06/10/23 History acetaminophen 500 mg tablet 1,000 mg PO Q6H PRN Pain 06/04/23 06/15/23 06/14/23 History Exam Exam Date and Time: June 14, 2023 1105 Height,Weight and Vital Signs: Height 5 ft 6 in Weight 58.967 kg Pertinent Lab Results Pertinent Lab Results: Laboratory Tests 06/08/23 06/08/23 08:00 08:33 WBC 5.1 RBC 4.27 Hgb 13.2 Hct 39.0 MCV 91.3 MCH 30.9 MCHC 33.8 RDW 12.7 Plt Count 278 MPV 10.3 Immature Gran % (Auto) 0.2 Neut % (Auto) 42.2 L Lymph % (Auto) 46.2 H Reynolds % (Auto) 6.9 Eos % (Auto) 3.9 Baso % (Auto) 0.6 Lymph # (Auto) 2.4 Reynolds # (Auto) 0.4 Eos # (Auto) 0.2 Baso # (Auto) 0.0 Abs Immat Gran (auto) 0.01 Absolute Neuts (auto) 2.2 Absolute Nucleated RBC 0.000 Nucleated RBC % (auto) 0.0 Sodium 140 Potassium 5.0 Chloride 103 Carbon Dioxide 27 Anion Gap 15 BUN 16 Creatinine 0.82 Estim Creat Clear Calc 72.9 Estimated GFR > 60 Random Glucose 86 Calcium 9.9 Nasal Screen MRSA (PCR) NEGATIVE Nasal S. aureus Screen NEGATIVE Nasal MRSA/S.aureus Interp SEE NOTE Blood Type O Positive Antibody Screen NEGATIVE Narrative Narrative: EKG 05/2023 Vent. Rate : 059 BPM Atrial Rate : 059 BPM P-R Int : 176 ms QRS Dur : 074 ms QT Int : 444 ms P-R-T Axes : 067 069 064 degrees QTc Int : 439 ms Sinus bradycardia RSR' or QR pattern in V1 suggests right ventricular conduction delay Possible Left atrial enlargement Borderline ECG When compared with ECG of 04-MAY-2014 12:29, No significant change was found Assessment and Plan Assessment Anesthesia Assessment: Chart Reviewed Documented by User: Milo Vera MD 06/15/23 15:15 PMF Past Medical History Medical History Abscess PTSD (post-traumatic stress disorder) Anxiety Elevated cholesterol Methadone dependence Polysubstance abuse Family History Family history of problems with anesthesia: No Surgical History Surgical History History of repair of congenital cleft palate History of Problems with Anesthesia: No Social History Social History Household Members: None Housing: Apartment Are you a primary home care provider to a significant other at home: No Do you presently have 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 If so, by whom?: No Are you DNR?: No Advance Directives: No (father is primary contact) Advance Directives Information Provided: Yes (brochure given) Advance Directives on File: No Recently lost weight without trying: No Eating poorly because of decreased appetite: No Nutrition Risks: No Nutritional Risk Poor oral hygiene: Yes (upper partial, no lower teeth or lower denture) service: No Current occupational status: unemployed Meds Allergies Allergy/AdvReac Type Severity Reaction Status Date / Time Sulfa (Sulfonamide Allergy Mild Unknown Verified 06/15/23 06:53 Antibiotics) Home Medications Medication Instructions Recorded Confirmed Last Taken Type methadone 10 mg/mL oral concentrate 115 mg PO DAILY 01/30/22 06/09/23 06/15/23 05:30 History rosuvastatin 20 mg tablet 20 mg PO DAILY 07/02/22 06/15/23 06/14/23 History ibuprofen 600 mg tablet 600 mg PO TID 05/06/23 06/15/23 06/10/23 History acetaminophen 500 mg tablet 1,000 mg PO Q6H PRN Pain 06/04/23 06/15/23 06/14/23 History Exam Airway Mallampati Class: II TM Dist: >3cm Neck ROM: Full Denture: Upper and Lower Assessment and Plan Assessment Anesthesia Assessment: Anesthesia Plan Discussed Final Anesthetic Review Family History of Problems with Anesthesia: No History of Problems with Anesthesia: No NPO: Yes ASA Class: III Final Preanesthetic Review: No Changes in Pt Med Stat, Meds/Allgs Chart Reviewed, Consent Obtained/Reviewed and Anes Risks/Benef Reviewed Patient Risk: Intermediate Procedure Risk: Low Anesthetic Plan Anesthetic Plan: GA Disposition: Standard PACU
[2023-06-15] VITALS (15 sets, daily range): BP systolic 117–173; BP diastolic 65–89; PULSE 55–88; RESP 16–35; TEMP 36.1–36.7; O2SAT 94–100
--- NOTE | ~2023-06-15 | XR_ITS ---
EXAMINATION: XR PELVIS CLINICAL INFORMATION: Left total hip arthroplasty. COMPARISON: Pelvis 07/02/2022. TECHNIQUE: AP view of the pelvis. FINDINGS: Prosthetic components of the left total hip arthroplasty are appropriately aligned. No periprosthetic fracture. Gas from recent surgery is present in the surrounding soft tissues. Severe degenerative changes are present in the right hip with loss of superior joint space, unchanged from prior. XR/XR pelvis 1-2V IMPRESSION: Expected postoperative appearance status post left total hip arthroplasty. Severe degenerative changes right hip.
[2023-06-15] MEDS: oxyCODONE HCl ER 10 MG TAB.ER.12H PO ×2 (07:44→21:08)
[2023-06-15] MEDS: Lactated Ringers 1,000 ML 100 ML IVCONT ×2 (07:45→14:27)
[2023-06-15] MEDS: vancomycin HCL 1,000 MG in 0.9 % Sodium Chloride 250 ML 270 MG IV ×2 (08:10→21:04)
--- NOTE | 2023-06-15 09:43 | MHC.SHP ---
Pre-Procedural Eval Section A Date of Service: 06/15/23 The patient is an INPATIENT: No Changes since office visit: No Cold of Flu in the past 2 weeks, No New Medical Problems, No Changes in Medication and No Patient answered all questions The History & Physical has been completed within 30 days and I have reviewed it.: Yes Section B Chief Complaint: LT AMIE Allergies: Allergies Allergy/AdvReac Type Severity Reaction Status Date / Time Sulfa (Sulfonamide Allergy Mild Unknown Verified 06/15/23 06:53 Antibiotics) Plan I have reviewed the history and physical and performed a pertinent physical examination on my patient. No changes have occurred unless specified. Time Spent With Patient Time: Total time managing care of this patient today ____ minutes.
--- NOTE | 2023-06-15 10:35 | PHA.MEDREC ---
Pharmacy Consult ? Medication Reconciliation Pharmacy has completed the medication reconciliation.pharmacy has reviewed med rec done by nursing
--- NOTE | 2023-06-15 11:39 | PM.OP ---
Brief Operative Note Date of Service: 06/15/23 Pre-op diagnosis: Left hip OA Post-op diagnosis: same Procedure: Left AMIE Implants: [place] Trident2 54 + 2 30 mm 6.5 acetabular screws Torri accolade2 #6 132 deg with +5 36 ceramic Surgeon: Sammy Bautista MD Anesthesia: GETA Was an Cylinder Sander Operator used for this Procedure?: Yes Cylinder Sander Operator: Manish Rosario Estimated blood loss (mL): 250 IV fluids (mL): 1,000 Pathology: other Condition: stable Disposition: PACU
[2023-06-15] MEDS: HYDROmorphone HCl 0.5 MG/0.5 ML SYRINGE IVPUSH ×4 (12:04→12:19)
[2023-06-15] MEDS: LORazepam 2 MG/ML VIAL 1 MG IVPUSH (12:14)
[2023-06-15] MEDS: Ketorolac Tromethamine 30 MG/ML VIAL 15 MG IVPUSH (12:22)
--- NOTE | 2023-06-15 15:09 | HO.PM.IMCN ---
History of Present Illness Data of Consult Service Date: 06/15/23 Requesting physician: Sammy Bautista Primary Care Provider: Sydney Graham MD [facility] Reason for consult: medical management 52-year-old female with history of anxiety, hyperlipidemia, history of polysubstance abuse though does continue using marijuana, and opioid dependence on methadone admitted to Orthopedic surgery for management of the osteoarthritis of the left hip s/p left AMIE with consult placed hospitalist service for medical management. Postoperatively, vitals have been stable. On exam, patient is somnolent but arousable. She has no acute complaints, but falls back asleep. Respirations even and nonlabored. 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 If so, by whom?: No Are you DNR?: No Advance Directives: No (father is primary contact) Advance Directives Information Provided: Yes (brochure given) Advance Directives on File: No Recently lost weight without trying: No Eating poorly because of decreased appetite: No Nutrition Risks: No Nutritional Risk Poor oral hygiene: Yes (upper partial, no lower teeth or lower denture) service: No Current occupational status: unemployed Meds Allergies Allergy/AdvReac Type Severity Reaction Status Date / Time Sulfa (Sulfonamide Allergy Mild Unknown Verified 06/15/23 06:53 Antibiotics) Active Medications: Current Medications Acetaminophen (Acetaminophen 325 Mg Tablet) 650 mg PO Q6H PRN PRN Reason: Pain, Mild (Pain Scale 1-3) Docusate Sodium (Docusate Sodium 100 Mg Capsule) 100 mg PO BID [facility] Enoxaparin Sodium (Enoxaparin Sodium 40 Mg/0.4 Ml Syringe) 40 mg SUBCUT Q24H [facility] Hydromorphone HCl (Hydromorphone Hcl 0.5 Mg/0.5 Ml Syringe) 0.5 mg IVPUSH Q10M PRN; Protocol PRN Reason: Pain, Moderate(Pain Scale 4-6) Hydromorphone HCl (Hydromorphone Hcl 0.5 Mg/0.5 Ml Syringe) 0.25 mg IVPUSH Q4H PRN; Protocol PRN Reason: Pain, Severe (Pain Scale 7-10) Lactated Ringer's (Lr) 1,000 mls @ 100 mls/hr IVCONT .Q10H [facility] Stop: 06/16/23 11:52 Last Admin: 06/15/23 14:27 Dose: 100 mls/hr Vancomycin HCl 1,000 mg/ (Sodium Chloride) 270 mls @ 270 mls/hr IV POSTOP ONE Stop: 06/15/23 20:59 Methadone HCl (Methadone Hcl 20 Mg/2 Ml Oral.Conc) 115 mg PO DAILY [facility] Ondansetron HCl (Ondansetron Hcl 4 Mg/2 Ml Vial) 4 mg IVPUSH Q8H PRN PRN Reason: Nausea and Vomiting Oxycodone HCl (Oxycodone Hcl Immed Release 5 Mg Tablet) 10 mg PO Q4H PRN PRN Reason: Pain, Moderate(Pain Scale 4-6) Oxycodone HCl (Oxycodone Hcl Er 10 Mg Tab.Er.12h) 10 mg PO BID [facility] Sodium Chloride (0.9 % Sodium Chloride Flush 3 Ml Syringe) 3 ml IVFLUSH QSHIFT [facility] Home Medications Medication Instructions Recorded Confirmed Last Taken Type methadone 10 mg/mL oral concentrate 115 mg PO DAILY 01/30/22 06/09/23 06/15/23 05:30 History rosuvastatin 20 mg tablet 20 mg PO DAILY 07/02/22 06/15/23 06/14/23 History ibuprofen 600 mg tablet 600 mg PO TID 05/06/23 06/15/23 06/10/23 History acetaminophen 500 mg tablet 1,000 mg PO Q6H PRN Pain 06/04/23 06/15/23 06/14/23 History Physical Exam Vital Signs and Narrative: Vital Signs: Last Vital Signs Temp 97.8 F 06/15/23 14:22 Pulse 86 06/15/23 14:22 Resp 16 06/15/23 14:22 BP 136/78 06/15/23 14:22 Pulse Ox 98 06/15/23 14:22 O2 Del Method Room Air 06/15/23 14:22 O2 Flow Rate 2 06/15/23 13:45 BMI result Body Mass Index 21.0 Constitutional - somnolent but arousable, No apparent distress Eyes - PERRLA, EOMI Cardiovascular - S1S2, RRR, No edema Respiratory - Normal lung expansion, Normal respiratory effort, No respiratory distress, CTA bilaterally Extremities - no calf tenderness bilaterally, no swelling Skin - Warm/Dry Neurological - somnolent but arousable Psychological - Appropriate affect Results Labs 06/08/23 08:33 06/08/23 08:33 Assessment and Plan (1) Bilateral primary osteoarthritis of hip: Status: Acute Plan 52-year-old female with history of anxiety, hyperlipidemia, history of polysubstance abuse though does continue using marijuana, and opioid dependence on methadone admitted to Orthopedic surgery for management of the osteoarthritis of the left hip s/p left AMIE with consult placed hospitalist service for medical management. #Left Hip OA s/p AMIE POD 0 -plan per orthopedic surgery #HLD -continue statin #Opioid dependence -continue methadone Thank you for allowing me to participate in this consult. Signing off at this time. Please do not hesitate to call for further questions or acute medical concerns Time Spent With Patient Time: Total time managing care of this patient today ____ minutes.
[2023-06-15] MEDS: 0.9 % Sodium Chloride Flush 3 ML SYRINGE IVFLUSH (16:05)
[2023-06-15] MEDS: oxyCODONE HCl Immed Release 5 MG TABLET 10 MG PO ×2 (16:12→21:09)
[2023-06-15] MEDS: Docusate Sodium 100 MG CAPSULE PO (21:09)
[2023-06-16] VITALS (7 sets, daily range): BP systolic 100–156; BP diastolic 56–99; PULSE 74–96; RESP 16–18; TEMP 36.4–36.9; O2SAT 94–97
[2023-06-16] MEDS: Lactated Ringers 1,000 ML 100 ML IVCONT ×2 (00:51→10:57)
[2023-06-16] MEDS: HYDROmorphone HCl 0.5 MG/0.5 ML SYRINGE 0.25 MG IVPUSH ×2 (00:59→05:00)
[2023-06-16] MEDS: Acetaminophen 325 MG TABLET 650 MG PO ×3 (04:25→19:02)
[2023-06-16 05:31] LABS: MANUAL DIFF FLAG NO
[2023-06-16 05:38] LABS: Basophils Percent Auto 0.1 % (0-2); Hematocrit 28.8 % (37.0-47.0); Hemoglobin 9.9 g/dl (12.0-16.0); Imm Gran Abs Auto 0.02 X10*3/uL (0.00-0.03); Imm Gran Pct Auto 0.2 % (0.0-0.4); Lymphocytes Absolute Auto 1.5 X10*3/uL (1.2-4.9); Lymphocytes Percent Auto 15.7 % (20-40); Mean Corpuscular HGB Conc 34.4 g/dl (31.0-35.0); Mean Corpuscular Volume 87.3 fL (80.0-98.0); Mean Platelet Volume 9.9 fL (9.4-12.3); Monocytes Percent Auto 10.9 % (2-11); Neutrophils Absolute Auto 6.8 x10*3/uL (2.0-8.3); Neutrophils Percent Auto 73.1 % (45-73); Platelet Count 211 X10*3/uL (160-400); Red Cell Distribution Width 12.6 % (11.0-16.0); White Blood Count 9.3 X10*3/uL (4.8-10.8)
[2023-06-16 05:51] LABS: Anion Gap 15 (12-20); Blood Urea Nitrogen 13 mg/dL (9-16); Calcium 9.1 mg/dL (8.4-10.2); Carbon Dioxide 22 mmol/L (22-29); Chloride 106 mmol/L (96-108); Creatinine Clr Calc Pharmacy 85.5; Estimated Glomerular Filt Rate > 60; Glucose Fasting 138 mg/dL (60-99); Potassium 3.8 mmol/L (3.3-5.1); Sodium 139 mmol/L (135-145)
--- NOTE | 2023-06-16 07:40 | PM.PNORT ---
Subjective Subjective Date of Service: 06/16/23 Interval history: POD1 s/p LTHA Patient is resting in bed comfortably No overnight events Pain is managed No additional complaints Physical Exam Vital Signs: Vital Signs: Last Vital Signs Temp 97.8 F 06/16/23 04:00 Pulse 94 06/16/23 04:00 Resp 18 06/16/23 04:00 BP 150/99 H 06/16/23 04:00 Pulse Ox 96 06/16/23 04:00 O2 Del Method Room Air 06/16/23 04:00 O2 Flow Rate 2 06/16/23 00:00 BMI result Body Mass Index 21.0 Const: General: cooperative, healthy appearing and no acute distress Resp: Effort & Inspection: normal respiratory effort and able to speak in complete sentences Cardio: Rate: regular rate Peripheral pulses: Peripheral pulses 2+ throughout GI: Palpation (GI): Soft to palpation Skin: Lesions: no lesions Rashes: no rashes Extrem: Other: LT hip dressing is c/d/i. Able to dorsi/plantar flex. Calf is supple and nontender. Sensation intact. Pedal pulse intact. Procedures Date of Service Date of Service: 06/16/23 Progress Note: A&P Assessment and plan (1) Status post total hip replacement, left: Status: Acute Plan Continue pain mgmnt Begin Lovenox for dvt ppx begin PT/OT for LTHA - Posterior precautions Dispo planning-Pending PT eval, pain mgmnt Time Spent With Patient Time: Total time managing care of this patient today ____ minutes. Quality Stroke Does the patient have a stroke diagnosis?: No VTE Prior VTE?: No VTE Risk Level:: Medical - moderate - high VTE Device Contraindication: N/A - Device Ordered VTE Drug Contraindication: N/A - Med Ordered
--- NOTE | 2023-06-16 07:58 | HE.PHANOTE ---
RE METHADONE PT GETS 115MG METHADONE FROM [facility]. LAST DOSE 06/09 BUT GIVEN TAKE HOME BOTTLES UNTIL 06/15 ZENA
[2023-06-16] MEDS: methADONE HCl 20 MG/2 ML ORAL.CONC 115 MG PO (08:08)
[2023-06-16] MEDS: Docusate Sodium 100 MG CAPSULE PO ×2 (08:11→20:06)
[2023-06-16] MEDS: oxyCODONE HCl ER 10 MG TAB.ER.12H PO ×2 (09:13→20:07)
[2023-06-16] MEDS: Enoxaparin Sodium 40 MG/0.4 ML SYRINGE SUBCUT (09:13)
[2023-06-16] MEDS: HYDROmorphone HCl 0.5 MG/0.5 ML SYRINGE IVPUSH ×3 (09:14→20:08)
--- NOTE | 2023-06-16 09:16 | HO.POSTANES ---
Post Anesthesia Evaluation Post Anesthesia Evaluation Date of Service: 06/16/23 Vital Signs: Vital Signs Temp Pulse Resp BP Pulse Ox O2 Del Method O2 Flow Rate 06/16/23 08:23 96 125/72 96 06/16/23 07:46 98.5 F 96 18 125/72 96 Room Air 06/16/23 04:00 97.8 F 94 18 150/99 H 96 Room Air 06/16/23 00:00 97.5 F 74 16 100/56 L 97 Nasal Cannula 2 Anesthesia: General Mental Status: Awake Pain Control: Satisfactory Nausea/Vomiting: None Hydration: Adequate Anesthesia-Related Issues: No Anes. Related Issues
--- NOTE | 2023-06-16 11:19 | MHC.CM.PN ---
pt lives alone has a transportation security officer pt is agreeable to going to [facility] where she has been in the past referral made
[2023-06-16] MEDS: oxyCODONE HCl Immed Release 5 MG TABLET 10 MG PO ×3 (12:44→22:10)
--- NOTE | 2023-06-16 14:18 | MHC.CM.PN ---
pt has been declined permanently from [facility] discussed with pt she apparently signed out ama when she was there last pt plans on going home with vna to her friends house [address]
[2023-06-16] MEDS: 0.9 % Sodium Chloride Flush 3 ML SYRINGE IVFLUSH (23:28)
[2023-06-17] MEDS: HYDROmorphone HCl 0.5 MG/0.5 ML SYRINGE IVPUSH (01:36)
[2023-06-17] MEDS: Acetaminophen 325 MG TABLET 650 MG PO ×4 (02:10→23:03)
[2023-06-17 04:00] VITALS: BP 126/60; PULSE 75; RESP 18; TEMP 36.5; O2SAT 97
[2023-06-17 05:45] LABS: MANUAL DIFF FLAG NO
[2023-06-17 05:52] LABS: Basophils Percent Auto 0.3 % (0-2); Eosinophils Percent Auto 0.3 % (0-4); Hematocrit 27.3 % (37.0-47.0); Hemoglobin 9.4 g/dl (12.0-16.0); Imm Gran Abs Auto 0.02 X10*3/uL (0.00-0.03); Imm Gran Pct Auto 0.3 % (0.0-0.4); Lymphocytes Absolute Auto 1.7 X10*3/uL (1.2-4.9); Mean Corpuscular HGB Conc 34.4 g/dl (31.0-35.0); Mean Corpuscular Hemoglobin 30.8 pg (27.0-33.0); Mean Corpuscular Volume 89.5 fL (80.0-98.0); Mean Platelet Volume 10.1 fL (9.4-12.3); Monocytes Absolute Auto 0.8 X10*3/uL (0.1-1.2); Neutrophils Absolute Auto 5.2 x10*3/uL (2.0-8.3); Neutrophils Percent Auto 67.1 % (45-73); Platelet Count 163 X10*3/uL (160-400); Red Blood Count 3.05 X10*6/uL (4.20-5.50); Red Cell Distribution Width 12.6 % (11.0-16.0); White Blood Count 7.8 X10*3/uL (4.8-10.8)
[2023-06-17] MEDS: oxyCODONE HCl Immed Release 5 MG TABLET 10 MG PO ×4 (05:57→23:03)
--- NOTE | 2023-06-17 06:06 | P.DS_ITS ---
DS: Providers Provider Date of Service: 06/17/23 Date of admission: 06/15/23 06:05 Primary care physician: Sydney Graham MD Consults: 06/15/23 14:12 Consult to Hospitalist Routine Comment: Consulting Provider: Hospitalist Reason For Exam: medical mgmnt / methadone use DS: Diagnosis Discharge Diagnosis (1) Status post total hip replacement, left: Status: Acute DS: Summary Hospital Course Hospital Course: The patient underwent a successful total left total hip arthroplasty on 06/15/[address] Bautista, was transferred to PACU and then to the floor to recover. During their stay, their vitals were stable, afebrile at .98.2 Labs were unremarkable, H/H 9.0/27.3. POD 1 he was started on Lovenox 40mg/ml once a day for DVT ppx, they also received Physical Therapy services twice a day. Physical therapy should include gait training, core and lumbar strength, glute strength. Posterior precautions intact. WBAT. Prior to discharge, her dressing was changed, incision clean dry and intact, new Aquacel dressing applied. The Aquacel dressing should remain intact and dry at all times. Any concerns with the dressing, please contact orthopedic office. No showering. The plan is to be discharged home with vna Follow up with [facility] Orthopedics in 2 weeks: July 01, 2023 @ 1:30pm [facility] Orthopedic SurgeonsManish Rosario PA-C Time Spent with Patient Time attestation: Total time managing care of this patient today ____ minutes. Discharge coordination time: Less than 30 minutes Quality: Safe Use of Opioids Does Pt have an Active Cancer Diagnosis on the Problem List?: No Quality: Stroke Does the patient have a stroke diagnosis?: No DS: Data Data Completed and Pending Completed studies during hospitalization [Text1]: Procedures Insertion of Infusion Device into Superior Vena Cava, Percutaneous Approach (01/29/22) Ultrasonography of Superior Vena Cava, Guidance (01/29/22) Pending studies at discharge: Pending at discharge 06/15/23 11:27 Surgical [PTH] Routine Labs on day of discharge: Laboratory Results - last 24 hr 06/17/23 05:17 WBC 7.8 RBC 3.05 L Hgb 9.4 L Hct 27.3 L MCV 89.5 MCH 30.8 MCHC 34.4 RDW 12.6 Plt Count 163 MPV 10.1 Immature Gran % (Auto) 0.3 Neut % (Auto) 67.1 Lymph % (Auto) 22.0 [place] % (Auto) 10.0 Eos % (Auto) 0.3 Baso % (Auto) 0.3 Lymph # (Auto) 1.7 [place] # (Auto) 0.8 Eos # (Auto) 0.0 Baso # (Auto) 0.0 Abs Immat Gran (auto) 0.02 Absolute Neuts (auto) 5.2 Absolute Nucleated RBC 0.000 Nucleated RBC % (auto) 0.0 Discharge Plan Discharge Anticipated Discharge Date/Time: 06/18/23 15:02 Patient Disposition: Home Health Service Discharge Diagnosis: s/p LTHA Referrals: Manish Rosario PA-C [Physician Full Service Vending Driver] - 2 Weeks (07/01/23 1:30 [facility] Orthopedic Surgeons Manish Rosario PA-C) Discharge Medications: New docusate sodium 100 mg Capsule 100 mg PO BID 7 Days Qty: 14 0RF oxycodone 10 mg tablet 10 mg PO Q4H PRN (Reason: Pain, Moderate(Pain Scale 4-6)) 7 Days Qty: 42 0RF Rx Instructions: Partial Fill upon patient request. acetaminophen 325 mg Tablet 650 mg PO Q6H PRN (Reason: Pain, Mild (Pain Scale 1-3)) 30 Days Qty: 240 0RF enoxaparin 40 mg/0.4 mL Syringe 40 mg subcut Q24H 42 Days Qty: 16.8 0RF Continued (DME) walker Misc See Rx Instructions .MEDSUPPLY Qty: 1 0RF Rx Instructions: Folding Front wheeled walker (DME) Elevated toilet seat See Rx Instructions .Route .MEDSUPPLY Qty: 1 0RF Rx Instructions: duration-lifetime methadone 10 mg/mL Concentrate 115 mg PO DAILY Patient Comments: patient DC'd yesterday (02/04/22) rosuvastatin 20 mg tablet 20 mg PO DAILY (DME) SHOWER CHAIR See Rx Instructions .ROUTE .MEDSUPPLY Qty: 1 0RF Rx Instructions: As directed (DME) Grab Bar See Rx Instructions .ROUTE .MEDSUPPLY Qty: 1 0RF Rx Instructions: As directed Discontinued acetaminophen 500 mg Tablet 1,000 mg PO Q6H PRN (Reason: Pain) ibuprofen 600 mg tablet 600 mg PO TID Discharge Orders: Discharge Order (Routine); Ordered 06/18/23 Ordered By: Manish Rosario Diet: Regular diet Activity on Discharge: Use cane or walker Stand Alone Forms: Patient Portal Discharge page Care Plan Goals: Restore function of joint Health Concerns: none Plan of Treatment: Physical Therapy Pain management DVT prophylaxis Assessment: * Physical Therapy for Total hip arthroplasty: wbat, posterior precautions, gait training, ROM, strength * Limit stair climbing * No showering, no tub bath-keep dressing clean, dry and intact * No driving x6 weeks * Continue Lovenox once a day x 6 weeks * Follow up with [facility] Orthopedics in 2 weeks: July 01, 2023 @ 1:30pm [facility] Orthopedic SurgeonsManish Rosario PA-C
[2023-06-17 06:10] LABS: Anion Gap 13 (12-20); Blood Urea Nitrogen 11 mg/dL (9-16); Carbon Dioxide 24 mmol/L (22-29); Chloride 104 mmol/L (96-108); Creatinine Clr Calc Pharmacy 90.7; Estimated Glomerular Filt Rate > 60; Glucose Fasting 118 mg/dL (60-99); Potassium 3.7 mmol/L (3.3-5.1); Sodium 137 mmol/L (135-145)
[2023-06-17 08:00] VITALS: BP 134/63; PULSE 83; RESP 18; TEMP 36.8; O2SAT 94
[2023-06-17] MEDS: oxyCODONE HCl ER 10 MG TAB.ER.12H PO ×2 (08:37→21:26)
[2023-06-17] MEDS: methADONE HCl 20 MG/2 ML ORAL.CONC 115 MG PO (08:38)
[2023-06-17] MEDS: Docusate Sodium 100 MG CAPSULE PO ×2 (08:38→21:26)
[2023-06-17] MEDS: Enoxaparin Sodium 40 MG/0.4 ML SYRINGE SUBCUT (08:38)
[2023-06-17] MEDS: 0.9 % Sodium Chloride Flush 3 ML SYRINGE IVFLUSH ×3 (08:39→23:04)
--- NOTE | 2023-06-17 09:49 | PM.PNORT ---
Subjective Subjective Date of Service: 06/17/23 Interval history: P OD2 s/p LTHA Patient is resting in bed comfortably No overnight events Pain is managed No additional complaints Physical Exam Vital Signs: Vital Signs: Last Vital Signs Temp 98.3 F 06/17/23 08:00 Pulse 83 06/17/23 08:00 Resp 18 06/17/23 08:00 BP 134/63 06/17/23 08:00 Pulse Ox 94 06/17/23 08:00 O2 Del Method Room Air 06/17/23 08:00 O2 Flow Rate 2 06/16/23 00:00 BMI result Body Mass Index 21.0 Const: General: cooperative, healthy appearing and no acute distress Resp: Effort & Inspection: normal respiratory effort and able to speak in complete sentences Cardio: Rate: regular rate Peripheral pulses: Peripheral pulses 2+ throughout GI: Palpation (GI): Soft to palpation Skin: Lesions: no lesions Rashes: no rashes Extrem: Other: LT hip incision c/d/i. Able to dorsi/plantar flex. Calf is supple and nontender. Sensation intact. Pedal pulse intact. Procedures Date of Service Date of Service: 06/17/23 Progress Note: A&P Assessment and plan (1) Status post total hip replacement, left: Status: Acute Plan Continue pain mgmnt Lovenox for dvt ppx PT/OT for LTHA - Posterior precautions Dispo planning-home with vna wednesday Time Spent With Patient Time: Total time managing care of this patient today ____ minutes. Quality Stroke Does the patient have a stroke diagnosis?: No VTE Prior VTE?: No VTE Risk Level:: Medical - moderate - high VTE Device Contraindication: N/A - Device Ordered VTE Drug Contraindication: N/A - Med Ordered
[2023-06-17 09:53] VITALS: BP 134/63; PULSE 83; O2SAT 94
[2023-06-17 14:45] VITALS: BP 134/63; PULSE 83; O2SAT 94
[2023-06-17 16:00] VITALS: BP 104/58; PULSE 75; RESP 15; TEMP 36.1; O2SAT 96
[2023-06-17 20:00] VITALS: BP 130/62; PULSE 72; RESP 17; TEMP 36.4; O2SAT 96
[2023-06-18 03:35] VITALS: BP 112/61; PULSE 75; RESP 18; TEMP 36.4; O2SAT 96
[2023-06-18] MEDS: oxyCODONE HCl Immed Release 5 MG TABLET 10 MG PO (03:44)
[2023-06-18 06:12] LABS: MANUAL DIFF FLAG NO
[2023-06-18 06:14] VITALS: RESP 18
[2023-06-18] MEDS: HYDROmorphone HCl 0.5 MG/0.5 ML SYRINGE IVPUSH (06:14)
[2023-06-18 06:15] VITALS: BP 110/63; PULSE 74
[2023-06-18 06:25] LABS: Basophils Percent Auto 0.3 % (0-2); Eosinophils Absolute Auto 0.1 X10*3/uL (0.0-0.4); Eosinophils Percent Auto 2.1 % (0-4); Hematocrit 27.3 % (37.0-47.0); Imm Gran Abs Auto 0.02 X10*3/uL (0.00-0.03); Imm Gran Pct Auto 0.3 % (0.0-0.4); Lymphocytes Absolute Auto 1.8 X10*3/uL (1.2-4.9); Lymphocytes Percent Auto 26.9 % (20-40); Mean Corpuscular Hemoglobin 30.1 pg (27.0-33.0); Mean Corpuscular Volume 91.3 fL (80.0-98.0); Mean Platelet Volume 10.2 fL (9.4-12.3); Monocytes Absolute Auto 0.5 X10*3/uL (0.1-1.2); Monocytes Percent Auto 6.8 % (2-11); Neutrophils Absolute Auto 4.3 x10*3/uL (2.0-8.3); Neutrophils Percent Auto 63.6 % (45-73); Platelet Count 170 X10*3/uL (160-400); Red Blood Count 2.99 X10*6/uL (4.20-5.50); Red Cell Distribution Width 12.5 % (11.0-16.0); White Blood Count 6.8 X10*3/uL (4.8-10.8)
[2023-06-18 06:35] LABS: Anion Gap 13 (12-20); Blood Urea Nitrogen 13 mg/dL (9-16); Carbon Dioxide 25 mmol/L (22-29); Chloride 104 mmol/L (96-108); Creatinine Clr Calc Pharmacy 92.1; Estimated Glomerular Filt Rate > 60; Glucose Fasting 115 mg/dL (60-99); Potassium 3.5 mmol/L (3.3-5.1); Sodium 138 mmol/L (135-145)
[2023-06-18] MEDS: methADONE HCl 20 MG/2 ML ORAL.CONC 115 MG PO (07:45)
[2023-06-18] MEDS: Docusate Sodium 100 MG CAPSULE PO (07:46)
[2023-06-18] MEDS: 0.9 % Sodium Chloride Flush 3 ML SYRINGE IVFLUSH (07:47)
[2023-06-18 08:00] VITALS: BP 131/64; PULSE 87; RESP 18; TEMP 37.6; O2SAT 94
[2023-06-18 08:48] VITALS: BP 131/64; PULSE 87; O2SAT 94
--- NOTE | 2023-06-18 08:50 | MHC.CM.PN ---
pt to be dcd today friend to transport hvns notified of dc
[2023-06-18] MEDS: Enoxaparin Sodium 40 MG/0.4 ML SYRINGE SUBCUT (10:55)
--- NOTE | 2023-06-18 11:26 | P.F2F_ITS ---
Service Date Service Date: 06/18/23 Encounter Date of encounter: 06/18/23 Reasons for Services Signs and symptoms assessed: Weakness, poor balance, poor gait mechanics Reason for assisted: postoperative assessment and/or care Reason for physical therapy: home safety and mobility, therapeutic exercises, restore joint function, gait/transfer training, ADL training and energy conservation Reason for occupational therapy: home safety and mobility, therapeutic exercises, restore joint function, gait/transfer training, ADL training and energy conservation Homebound: Leaving the home is medically contraindicated at this time without the asist of a device and/or another person due th the listed conditions above and below. Reason homebound: unsteady gait / fall risk, leg weakness, pain with ambulation, poor balance / fall risk and unable to drive Homebound supporting statement: Pt. is considered home bound due to recent surgery. Unable to drive, poor balance, poor gait mechanics. Certification: Based on the above findings, I certify that this patient is confined to the home and needs intermittent assisted care, physical therapy and/or speech ther apy, or continues to need occupational therapy. The patient is under my care, and I have initiated the establishment of the plan of care. The patient will be followed by a physician who will periodically review the plan of care. Time Spent With Patient Time: Total time managing care of this patient today ____ minutes.
--- NOTE | 2023-06-24 14:36 | P.OP_ITS ---
Operative Note Operative Note Date of Service: 06/15/23 Narrative: Date of Service: 06/15/23 Pre-op diagnosis: Left hip OA Post-op diagnosis: same Procedure: Left AMIE Implants: [place]2 54 + 2 30 mm 6.5 acetabular screws Torri accolade2 #6 132 deg with +5 36 ceramic Surgeon: Sammy Bautista MD Anesthesia: GETA Was an Final Inspector And Tester used for this Procedure?: Yes Final Inspector And Tester: Manish Rosario Estimated blood loss (mL): 250 IV fluids (mL): 1,000 Pathology: other Condition: stable Disposition: PACU Procedure in detail: Patient was brought into the operating room and placed in the right lateral decubitus position. All bony prominences were well padded and the limb was prepped and draped in standard sterile fashion. A time-out was called to identify proper site procedure proper surgeon IV antibiotics and 1 g of transaxemic acid were administered. I began by making a curvilinear incision over the posterolateral aspect of the greater trochanter. Dissection was taken down to the tensor fascia which was incised in line with the incision and a Charnley retractor was placed. Cautery was used to maintain hemostasis. The hip was internally rotated and the external rotators were identified. The vessels were cauterized and a full-thickness capsular/external rotator layer was developed starting just proximal to the piriformis. This layer was tagged and a dull Hohmann retractor was placed underneath the neck in the hip was dislocated. A neck cut was made 1 cm proximal to the lesser trochanter and the head and neck were removed and measured 50mm on the back table. The head and neck were disfigured and eburnated.I then removed the labrum and cauterized the fovea. I started with a 44 reamer and medialized to the inner table. I sequentially reamed up to a size 53 and impacted a 54mm cup at 45 degrees of inclination and 25 degrees of version.2 30 mm acetabular screws were then placed using standard AO technique. I then placed a 20 deg posterior lipped liner and turned my attention to the femur. I identified the piriformis insertion and used this as a starting point for my cl cutter. The medius tendon was protected with a Hibs retractor. A Charnley awl was inserted in the canal and a curved curette used to remove the lateral bone. I irrigated copiously. I then sequentially broached in the patient's natural version to a size 6 and placed my trial implants. I used a #6/132/+5 based on my pre-operative template. Using a trail head I took the hip through range of motion. I was satisfied with the stability and length. I removed all instrumentation and copiously irrigated. I placed my final femoral implant and again took the hip through range of motion and was satisfied with the stability and length. The final +5 implant was impacted in place and the hip reduced. I then irrigated for 3 minutes with iodine and placed 1 g of local transaxemic a arcenio. I performed a capsular closure with 2.0 fiberwire, Liyah's fascia with 0 Vicryl, subcuticular with 2-0 Vicryl and the skin with zacarias. Patient was placed into a sterile dressing. Patient was extubated brought to the recovery room in stable condition. There were no known complications.
== END 2023-06-18 11:30 | disposition home health service (06) | DRG 324 ==
LOC: HO.SSSA 06:07 → HO.S3 13:26
PROVIDERS: Physician Assistant; Admitting Provider Orthopaedic Surgery; PCP Internal Medicine; Visit Provider Orthopaedic Surgery
PROC: 0SRB03A Replacement of Left Hip Joint with Ceramic Synthetic Substitute, Uncemented, Open Approach (ICD-10-PCS; CPT 27130; principal; 2023-06-15 08:40)
DX: M16.12 Unilateral primary osteoarthritis, left hip (principal); E78.00 Pure hypercholesterolemia, unspecified; F11.20 Opioid dependence, uncomplicated; F43.10 Post-traumatic stress disorder, unspecified; F17.210 Nicotine dependence, cigarettes, uncomplicated; Z71.6 Tobacco abuse counseling; Z88.2 Allergy status to sulfonamides; Z79.899 Other long term (current) drug therapy
CPT/HCPCS: 36415; 72170; 80048; 85025; 86850; 86900; 86901; 87640; 87641; 88304; 88311; 93005; 97110; 97116; 97162; 97165; 97166; 97530; 97535; C1713; C1776; J0131; J1170; J1650; J1885; J2060; J2405; J2550; J2795; J3010; J3370

== ENCOUNTER → 2023-06-15 06:05 | Outpatient (BNV) | payer MEDICAID, SELFPAY | PROVIDERS: Admitting Provider Orthopaedic Surgery; PCP Internal Medicine; Visit Provider Physician Assistant | DX: M16.0 Bilateral primary osteoarthritis of hip (principal) | CPT/HCPCS: 99221 ==

== ENCOUNTER → 2023-06-15 06:05 | Outpatient (BNV) | payer MEDICAID, SELFPAY | PROVIDERS: Admitting Provider Orthopaedic Surgery; PCP Internal Medicine; Visit Provider Orthopaedic Surgery | DX: M16.12 Unilateral primary osteoarthritis, left hip (principal) | CPT/HCPCS: 27130; 27447; 99024; 99212; G0180 ==

== ENCOUNTER 2023-07-01 13:05 | Outpatient (AMB) | payer MEDICAID, SELFPAY ==
--- NOTE | 2023-07-01 13:24 | A.OFFVIS_ITS ---
Intake Intake Visit Reasons: PO-LT AMIE 06/15/23 NE Intake Note: Noemí presents today for her P/O visit for her left AMIE from 06/15/23 NE. States she has no pain just little discomfort. Allergies Sulfa (Sulfonamide Antibiotics) Allergy (Mild, Verified 07/01/23 13:34) Unknown HPI PO-LT AMIE 06/15/23 NE HPI Details 53-year-old female who returns to the [facility] today for post-op left AMIE, 06/15/[address] Bautista. She states she has no pain but she does c/o mild discomfort in her hip. She is doing well overall and has no concerns today. [facility] Medical History Abscess PTSD (post-traumatic stress disorder) Anxiety Elevated cholesterol Methadone dependence Polysubstance abuse Surgical History History of repair of congenital cleft palate Social History (Reviewed 07/01/23 @ 13:34 by Colleen Cool [facility]) Household Members: None Housing: Apartment Are you a primary acute care clinical nurse specialist to a significant other at home: No Do you presently have visiting nurse or other home services: No Alcohol intake: never Patient Tobacco Use Status: Tobacco use Unknown Tobacco use type: Cigarette Cigarettes Per Day: 10 Years Smoked: 40 e-Cigarette/Vaping Use: Former Use Substance Use Type: Marijuana service: No Current occupational status: unemployed Review of Systems Const All systems reviewed & are unremarkable except as noted in HPI and below Physical Exam Extrem Other: Left hip: Incision clean, dry and intact. No erythema or drainage. No pain with ROM of hip. She can perform hip flexion. Calf supple, nontender. NVI. Assessment & Plan Assessment & Plan (1) Status post total hip replacement, left: Code(s): Z96.642 - Presence of left artificial hip joint Plan Yasmani removed, steri strips applied. She will begin to transition to Outpatient PT to continue working on Gait training, glute/ core and lumbar strength. No driving for another 4 weeks. She will require ppx abx for dental procedures. She will f/u in 4 weeks, sooner if needed. Patient Instructions: Scribed for Aly-Nata Rosario PA-C, by Rafael Fierro, neuropsychology medical consultant, on 07/01/2023 at 1:30 PM Manish LINDER PA-C, have personally reviewed and agree with the information entered by the scribe. Coding Level of Care Code Global (80769) Diagnoses Status post total hip replacement, left Z96.642
== END 2023-07-01 13:34 | disposition home or self-care (01) ==
PROVIDERS: PCP Internal Medicine; Visit Provider Physician Assistant
DX: Z96.642 Presence of left artificial hip joint (principal)
CPT/HCPCS: 99024

== ENCOUNTER → 2023-07-01 13:05 | Outpatient (BNVA) | payer MEDICAID, SELFPAY | PROVIDERS: PCP Internal Medicine; Visit Provider Physician Assistant ==

== ENCOUNTER 2023-07-29 14:13 | Outpatient (AMB) | payer MEDICAID, SELFPAY ==
--- NOTE | 2023-07-29 14:42 | A.OFFVIS_ITS ---
Intake Intake Visit Reasons: PO-LT AMIE 06/15/23 NE Intake Note: Noemí eric 53 year old female presents today for a post operative left AMIE, DOS 06/15/23 NE. Patient reports she is doing well, she continues to work with PT at [facility]. Her only complaint is of her right hip pain. Allergies Sulfa (Sulfonamide Antibiotics) Allergy (Mild, Verified 07/29/23 15:01) Unknown HPI PO-LT AMIE 06/15/23 NE HPI Details 53-year-old female who returns to the [facility] today for post-op left AMIE, 06/15/[address] Bautista. She states she has improvement in her pain and is doing well overall. She continues to work with physical therapy at [facility]. She currently c/o right hip pain as well. She has no other concerns today. [facility] Medical History Abscess PTSD (post-traumatic stress disorder) Anxiety Elevated cholesterol Methadone dependence Polysubstance abuse Surgical History History of repair of congenital cleft palate Social History Household Members: None Housing: Apartment Are you a primary home care attendant to a significant other at home: No Do you presently have visiting nurse or other home services: No Alcohol intake: never Patient Tobacco Use Status: Tobacco use Unknown Tobacco use type: Cigarette Cigarettes Per Day: 10 Years Smoked: 40 e-Cigarette/Vaping Use: Former Use Substance Use Type: Marijuana service: No Current occupational status: unemployed Review of Systems Const All systems reviewed & are unremarkable except as noted in HPI and below Physical Exam Extrem Other: Left hip: Incision well healed. She has no pain with ROM of hip. She can perform hip flexion without discomfort. NVI. Assessment & Plan Assessment & Plan (1) Status post total hip replacement, left: Code(s): Z96.642 - Presence of left artificial hip joint Plan She will continue to increase activity as tolerated working with physical therapy to work on strengthening exercises. She will see us back in 6 weeks with x-rays and Dr. Bautista, sooner if needed. Patient Instructions: Scribed for Manish Rosario PA-C, by Rafael Fierro, medical support specialist, on 07/29/2023 at 2:45 PM Manish LINDER PA-C, have personally reviewed and agree with the information entered by the scribe. Coding Level of Care Code Global (19675) Diagnoses Status post total hip replacement, left Z96.642
== END 2023-07-29 15:07 | disposition home or self-care (01) ==
PROVIDERS: PCP Internal Medicine; Visit Provider Physician Assistant
DX: Z96.642 Presence of left artificial hip joint (principal)
CPT/HCPCS: 99024

== ENCOUNTER → 2023-07-29 14:13 | Outpatient (BNVA) | payer MEDICAID, SELFPAY | PROVIDERS: PCP Internal Medicine; Visit Provider Physician Assistant | DX: Z47.1 Aftercare following joint replacement surgery (principal); Z96.642 Presence of left artificial hip joint | CPT/HCPCS: 99212 ==

== ENCOUNTER 2023-09-09 11:05 | Outpatient (AMB) | payer MEDICAID, SELFPAY ==
[2023-09-09 11:19] VITALS: BMI 23.3
--- NOTE | 2023-09-09 11:19 | MHC.OFFVIS ---
Intake Vital Signs 09/09/23 11:19 Height 5 ft 5 in Weight 140 lb BMI 23.3 Intake Visit Reasons: OV-LT AMIE 06/15/23 NE-w xrays Intake Note: Noemí is a 53 year old female who presents today for a post operative appointment s/p Left AMIE, DOS 06/15/23 NE. Patient rpeorts that the left hip is doing well but she has complaints of the right hip progressively getting worse. Allergies Sulfa (Sulfonamide Antibiotics) Allergy (Mild, Verified 07/29/23 15:01) Unknown HPI OV-LT AMIE 06/15/23 NE-w xrays HPI Details Noemí is a 53 year old woman who presents ~11 weeks S/P left AMIE. She says in regards to her left hip she is doing well. However, she is experiencing more pain and discomfort from her right hip OA. She continues to work with PT and perform at-home exercises. She has worsening right hip pain. She has known right hip OA. [facility] Medical History Abscess PTSD (post-traumatic stress disorder) Anxiety Elevated cholesterol Methadone dependence Polysubstance abuse Surgical History History of repair of congenital cleft palate Social History Household Members: None Housing: Apartment Are you a primary housekeeper caregiver to a significant other at home: No Do you presently have visiting nurse or other home services: No Alcohol intake: never Patient Tobacco Use Status: Tobacco use Unknown Tobacco use type: Cigarette Cigarettes Per Day: 10 Years Smoked: 40 e-Cigarette/Vaping Use: Former Use Substance Use Type: Marijuana service: No Current occupational status: unemployed Review of Systems Const All systems reviewed & are unremarkable except as noted in HPI and below Physical Exam Vital Signs: BMI result Body Mass Index 23.3 Const General: no acute distress, alert and awake Orientation/consciousness: patient oriented x3 HEENT Head: Yes normocephalic and Yes atraumatic Eyes EOM: EOMs intact bilaterally Resp Effort & Inspection: normal respiratory effort and able to speak in complete sentences Cardio Jugular venous distension: no JVD Skin General skin exam: turgor normal Rashes: no rashes Neuro General: patient oriented x3 Extrem Other: left hip is not painful with ROM She has a well healed incision She is walking comfortably Right hip with minimal motion while flexed Marked gait antalgia and markedly + impoiongement test on the right Psych Appearance: grossly normal Affect: normal affect Attitude: cooperative Results Reviewed Results Reviewed: I personally reviewed relevant radiographs. Left AMIE in expected post operative position with no hardware complications or evidence of loosening RIght hip with severe OA and subluxation Assessment & Plan Assessment & Plan (1) Status post total hip replacement, left: Code(s): Z96.642 - Presence of left artificial hip joint Plan: Doing well s/p left AMIE Continue activity as tolerated (2) Primary osteoarthritis of right hip: Code(s): M16.11 - Unilateral primary osteoarthritis, right hip Plan: Right hip with severe OA. We have previously discussed right AMIE and I recommend it. She recently went through left AMIE and did well. She is nearly 2 years clean and doing well. I explained that there is a risk of complications and problems with right AMIE even though she did very well after her left. She understands this and we will proceed forward with planning for her right AMIE. Plan Scribed for Sammy Bautista MD by Jabier Roque, medical physics researcher, on 09/09/23 at 11:30 AM, EST. Orders: Orders XR pelvis 1-2V 09/09/23 M25.559 - Pain in unspecified hip Coding Level of Care Code Est Pt Level 4 (06411) Global (75914) Diagnoses Status post total hip replacement, left Z96.642 Primary osteoarthritis of right hip M16.11
== END 2023-09-09 11:35 | disposition home or self-care (01) ==
PROVIDERS: PCP Internal Medicine; Visit Provider Orthopaedic Surgery
DX: M16.11 Unilateral primary osteoarthritis, right hip (principal); Z96.642 Presence of left artificial hip joint
CPT/HCPCS: 99214

== ENCOUNTER 2023-09-09 11:05 | Outpatient (REF) | payer MEDICAID, SELFPAY ==
--- NOTE | ~2023-09-09 | XR_ITS ---
EXAMINATION: XR PELVIS CLINICAL INFORMATION: Reason for Exam M25.559 - Pain in unspecified hip COMPARISON: Pelvis radiographs 06/15/2023 TECHNIQUE: 1 view of the pelvis FINDINGS: No acute fracture or dislocation. Advanced degenerative changes of the right hip similar to prior with complete loss of joint space, bony remodeling of the acetabulum and partial collapse of the right femoral head. Status post left total hip arthroplasty in apparent anatomic alignment on this limited single view. No evidence of hardware fracture or complication. Calcified phleboliths in the pelvis. XR/XR pelvis 1-2V IMPRESSION: 1. Advanced degenerative changes of the right hip similar to prior with complete loss of joint space, bony remodeling of the acetabulum and partial collapse of the right femoral head. 2. Status post left total hip arthroplasty in apparent anatomic alignment on this limited single view.
== END 2023-09-09 11:06 | disposition home or self-care (01) ==
LOC: HO.HOSX 11:05
PROVIDERS: PCP Internal Medicine; Visit Provider Orthopaedic Surgery
DX: Z47.1 Aftercare following joint replacement surgery (principal); Z96.642 Presence of left artificial hip joint; M16.11 Unilateral primary osteoarthritis, right hip
CPT/HCPCS: 72170; 99212

== ENCOUNTER 2023-11-18 10:05 | Outpatient (AMB) | payer MEDICAID, SELFPAY ==
--- NOTE | 2023-11-18 10:09 | A.OFFVIS_ITS ---
Intake Vital Signs 11/18/23 10:14 Height 5 ft 5 in Weight 140 lb BMI 23.3 Intake Visit Reasons: pre op right AMIE 11/24/23 with NE Intake Note: Noemí is a 53 year old female who presents today for a pre op appointment for her right AMIE 11/24/23 with NE. Allergies Sulfa (Sulfonamide Antibiotics) Allergy (Intermediate, Verified 11/18/23 10:13) Rash HPI pre op right AMIE 11/24/23 with NE HPI Details 53-year-old female who presents in the o [facility] today for her preoperative history and physical exam prior to a right total hip arthroplasty to be performed on 11/24/[address] Sammy Bautista. Patient was prescribed Oxycodone, but does not recall the dosage. Patient has an allergy history, as follows: -Sulfa; rash Patient is currently taking, as follows: -Ibuprofen 600 mg PO TID -Methadone 115 mg PO daily -Rosuvastatin 20 mg PO daily Patient has a medical history, as follows: -Hx MRSA infection; neck infection -Abscess; 12/2021-epidural abscess due to drug use-? 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 -Substance use: Marijuana; prescribed; n o heroin, cocaine for 2 years on Methadone 12 years [facility] Medical History (Updated 11/17/23 @ 08:51 by Dora Garcia RN) Hx MRSA infection Current smoker on some days Abscess PTSD (post-traumatic stress disorder) Anxiety Elevated cholesterol Bilateral primary osteoarthritis of hip Methadone dependence Polysubstance abuse Surgical History (Updated 11/16/23 @ 11:38 by Dora Garcia RN) History of left hip replacement (06/15/23) History of repair of congenital cleft palate Social History Household Members: None Housing: Apartment Are you a primary resident care spec to a significant other at home: No Do you presently have visiting nurse or other home services: Yes (INSTRU[employer] SURGICAL TECHNICIAN 1-2 hours/day) Alcohol intake: never Patient Tobacco Use Status: Current someday Tobacco user Tobacco use type: Cigarette Years Smoked: 40 e-Cigarette/Vaping Use: Never Used Substance Use Type: Marijuana service: No Current occupational status: unemployed Review of Systems Const All systems reviewed & are unremarkable except as noted in HPI and below Physical Exam Vital Signs: BMI result Body Mass Index 23.3 Const General: cooperative, healthy appearing, comfortable, no acute distress, well developed, alert and awake Orientation/consciousness: patient oriented x3 HEENT Head: Yes normal to inspection, Yes normocephalic and Yes atraumatic Eyes General: appearance normal, both eyes and all related structures EOM: EOMs intact bilaterally Neck Neck: Yes normal visual inspection and Yes no lymphadenopathy Resp Effort & Inspection: normal respiratory effort and able to speak in complete sentences Cardio Jugular venous distension: no JVD Rate: regular rate Peripheral pulses: Peripheral pulses 2+ throughout GI Inspection: Yes normal to inspection Palpation (GI): Soft to palpation Skin General skin exam: no rashes or lesions noted Rashes: no rashes Neuro General: patient oriented x3 Extrem Other: Right hip Skin is clean, dry, and intact. Minimal motion while flexed Marked gait antalgia and markedly + impoiongement test on the right Psych Appearance: grossly normal Mental Status: mental status grossly normal Affect: normal affect Attitude: cooperative Assessment & Plan Assessment & Plan (1) Primary osteoarthritis of right hip: Code(s): M16.11 - Unilateral primary osteoarthritis, right hip Plan Ms. Brown is a 53-year-old female who presents in the office today for her preoperative history and physical exam prior to a right total hip arthroplasty to be performed on 11/24/[address] Sammy Bautista. Patient was prescribed Oxycodone, but does not recall the dosage. Patient has an allergy history, as follows: -Sulfa; rash Patient is currently taking, as follows: -Ibuprofen 600 mg PO TID -Methadone 115 mg PO daily -Rosuvastatin 20 mg PO daily Patient has a medical history, as follows: -Hx MRSA infection; neck infection -Abscess; 12/2021-epidural abscess due to drug use-? 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 -Substance use: Marijuana; prescribed; no heroin, cocaine for 2 years on Methadone 12 years I discussed in detail the procedure and what to expect pre and post operatively. We discussed the risks, benefits and alternatives to the surgery as well as the rehabilitation course. The risks; which include, but are not limited to infection, bleeding, nerve injury, ongoing pain, swelling, and stiffness, perioperative risk of injury to bones and soft tissues, and blood clots. I have answered all questions and with their understanding they have consented to move forward with a right total hip arthroplasty to be performed on 11/24/[address] Sammy Bautista. I discussed with the patient that she needs to discontinue the use of Ibuprofen at this time. Should she need something for pain she is able to take Tylenol. Follow up will be at the post operative appointment on 12/09/2023 at 12:30 pm, or sooner if needed. Of note: A prescription for Vancomycin will be sent to the pharmacy for after surgery due to prior MRSA infection. Discharge Medications from left hip arthroplasty: docusate sodium 100 mg Capsule 100 mg PO BID 7 Days Qty: 14 0RF oxycodone 10 mg tablet 10 mg PO Q4H PRN (Reason: Pain, Moderate(Pain Scale 4-6)) 7 Days Qty: 42 0RF Rx Instructions: Partial Fill upon patient request. acetaminophen 325 mg Tablet 650 mg PO Q6H PRN (Reason: Pain, Mild (Pain Scale 1-3)) 30 Days Qty: 240 0RF enoxaparin 40 mg/0.4 mL Syringe 40 mg subcut Q24H 42 Days Qty: 16.8 0RF Orders: Orders PT Evaluation and Treatment 03/18/24 Z96.641 - Presence of right artificial hip joint Patient Instructions: Scribed by Daphnie Fonseca, emergency medical service manager, for Yane Harrington PA-C on 11/18/2023 at 10:06 am, EST. Coding Level of Care Code Global (75503) Diagnoses Primary osteoarthritis of right hip M16.11
[2023-11-18 10:14] VITALS: BMI 23.3
== END 2023-11-18 10:36 | disposition home or self-care (01) ==
PROVIDERS: PCP Internal Medicine; Visit Provider Physician Assistant
DX: M16.11 Unilateral primary osteoarthritis, right hip (principal)
CPT/HCPCS: 99024

== ENCOUNTER → 2023-11-18 10:05 | Outpatient (BNVA) | payer MEDICAID, SELFPAY | PROVIDERS: PCP Internal Medicine; Visit Provider Physician Assistant | DX: M16.11 Unilateral primary osteoarthritis, right hip (principal) | CPT/HCPCS: 99212 ==

== ENCOUNTER 2023-11-24 06:36 | Inpatient (IN) | payer MEDICAID, SELFPAY ==
[2023-11-16 11:40] VITALS: BP 131/66; PULSE 77; RESP 16; O2SAT 96; BMI 23.3
--- NOTE | 2023-11-16 12:09 | P.CONAN_ITS ---
Documented by User: Nneka Reed NP 11/16/23 12:22 HPI - Anesthesia Eval Consult details Narrative: 53yo F for Right Hip Total Replacement s/p L AMIE 05/2023 with GA-ETT 7, no issues per patient Medically cleared No recent illness No CP/SOB within limits of hip Hx polysub. Methadone daily. 115mg Smoker. Some days PMFSH Active Problems Active Problems: All Active Problems (Updated 09/12/23 @ 10:35 by Sammy Bautista MD) Primary osteoarthritis of right hip (Acute) Status post total hip replacement, left (Acute) Abscess in epidural space of cervical spine (Acute) Polysubstance abuse (Acute) Past Medical History Medical History Hx MRSA infection Current smoker on some days Abscess PTSD (post-traumatic stress disorder) Anxiety Elevated cholesterol Bilateral primary osteoarthritis of hip Methadone dependence Polysubstance abuse Family History Family history of problems with anesthesia: No Surgical History Surgical History History of left hip replacement (06/15/23) History of repair of congenital cleft palate History of Problems with Anesthesia: No Social History Social History Household Members: None Housing: Apartment Are you a primary auto care center manager to a significant other at home: No Do you presently have visiting nurse or other home services: Yes ([employer]IDENT 1-2 hours/day) Alcohol intake: never Patient Tobacco Use Status: Current someday Tobacco user Tobacco use type: Cigarette Years Smoked: 40 e-Cigarette/Vaping Use: Never Used Patient Interested in Nicotine Replacement: No Use of substances other than those prescribed or required for medical reasons: Yes Substance Use Type: Marijuana Substance Use Type Other:: no heroin in 2 years Substance Use Frequency: Daily Have you been hit, kicked, punched, or otherwise hurt by someone within the past year? If so, by whom?: No Are you DNR?: No Advance Directives: Yes Advance Directives Information Provided: Yes Advance Directives on File: Yes Advance Directives Date on File: 06/21/23 Recently lost weight without trying: No Nutrition Risks: No Nutritional Risk Poor oral hygiene: Yes (full upper denture, none on bottom waiting for lower denture) service: No Current occupational status: unemployed Meds Allergies Allergy/AdvReac Type Severity Reaction Status Date / Time Sulfa (Sulfonamide Allergy Intermediate Rash Verified 11/24/23 06:42 Antibiotics) Home Medications Medication Instructions Recorded Confirmed Last Taken Type methadone 10 mg/mL oral concentrate 115 mg PO DAILY 01/30/22 11/16/23 11/24/23 05:30 History rosuvastatin 20 mg tablet 20 mg PO DAILY 07/02/22 11/16/23 11/23/23 History ibuprofen 600 mg tablet 600 mg PO TID 11/16/23 11/16/23 11/18/23 History Exam Height,Weight and Vital Signs: Height 5 ft 5 in Weight 63.503 kg Last Vital Signs Pulse 77 11/16/23 11:40 Resp 16 11/16/23 11:40 BP 131/66 11/16/23 11:40 Pulse Ox 96 11/16/23 11:40 O2 Del Method Room Air 11/16/23 11:40 Narrative Narrative: EKG 10/2023 SR with SA ? LAE Septal infarct, age undetermined (? artifact d/t poor lead placement) Airway Mallampati Class: II TM Dist: >3cm Neck ROM: Full Denture: Upper and Lower Heart: RRR Lungs: CTAB Assessment and Plan Assessment Anesthesia Assessment: Anesthesia Plan Discussed, Smoking Cess. Discussed and PAT Visit Final Anesthetic Review Family History of Problems with Anesthesia: No History of Problems with Anesthesia: No Documented by User: Ligia Garcia MD 11/24/23 07:33 PMFSH Past Medical History Medical History Hx MRSA infection Current smoker on some days Abscess PTSD (post-traumatic stress disorder) Anxiety Elevated cholesterol Bilateral primary osteoarthritis of hip Methadone dependence Polysubstance abuse Surgical History Surgical History History of left hip replacement (06/15/23) History of repair of congenital cleft palate Social History Social History Household Members: None Housing: Apartment Are you a primary auto care center manager to a significant other at home: No Do you presently have visiting nurse or other home services: Yes ([employer]IDENT 1-2 hours/day) Alcohol intake: never Patient Tobacco Use Status: Current someday Tobacco user Tobacco use type: Cigarette Years Smoked: 40 e-Cigarette/Vaping Use: Never Used Patient Interested in Nicotine Replacement: No Use of substances other than those prescribed or required for medical reasons: Yes Substance Use Type: Marijuana Substance Use Type Other:: no heroin in 2 years Substance Use Frequency: Daily Have you been hit, kicked, punched, or otherwise hurt by someone within the past year? If so, by whom?: No Are you DNR?: No Advance Directives: Yes Advance Directives Information Provided: Yes Advance Directives on File: Yes Advance Directives Date on File: 06/21/23 Recently lost weight without trying: No Nutrition Risks: No Nutritional Risk Poor oral hygiene: Yes (full upper denture, none on bottom waiting for lower denture) service: No Current occupational status: unemployed Meds Allergies Allergy/AdvReac Type Severity Reaction Status Date / Time Sulfa (Sulfonamide Allergy Intermediate Rash Verified 11/24/23 06:42 Antibiotics) Home Medications Medication Instructions Recorded Confirmed Last Taken Type methadone 10 mg/mL oral concentrate 115 mg PO DAILY 01/30/22 11/16/23 11/24/23 05:30 History rosuvastatin 20 mg tablet 20 mg PO DAILY 07/02/22 11/16/23 11/23/23 History ibuprofen 600 mg tablet 600 mg PO TID 11/16/23 11/16/23 11/18/23 History Assessment and Plan Assessment Anesthesia Assessment: Chart Reviewed Final Anesthetic Review NPO: Yes ASA Class: III (took 115 methadone today) Final Preanesthetic Review: No Changes in Pt Med Stat, Meds/Allgs Chart Reviewed, Consent Obtained/Reviewed and Anes Risks/Benef Reviewed Patient Risk: Intermediate Procedure Risk: Intermediate Anesthetic Plan Anesthetic Plan: GA Disposition: Standard PACU
[2023-11-16 13:01] LABS: Hematocrit 38.8 % (37.0-47.0); Hemoglobin 13.2 g/dl (12.0-16.0); Mean Corpuscular Hemoglobin 29.5 pg (27.0-33.0); Mean Corpuscular Volume 86.6 fL (80.0-98.0); Platelet Count 273 X10*3/uL (160-400); Red Blood Count 4.48 X10*6/uL (4.20-5.50); White Blood Count 7.7 X10*3/uL (4.8-10.8)
[2023-11-16 14:18] LABS: Anion Gap 14 (12-20); Blood Urea Nitrogen 22 mg/dL (9-16); Calcium 9.5 mg/dL (8.4-10.2); Carbon Dioxide 27 mmol/L (22-29); Chloride 103 mmol/L (96-108); Creatinine Clr Calc Pharmacy 71.5; Estimated Glomerular Filt Rate > 60; Glucose Random 78 mg/dL (60-115); Potassium 4.7 mmol/L (3.3-5.1); Sodium 139 mmol/L (135-145)
[2023-11-16 14:59] LABS: MRSA Nasal PCR NEGATIVE (Negative); SA Nasal PCR NEGATIVE (Negative)
[2023-11-24] VITALS (27 sets, daily range): BP systolic 102–187; BP diastolic 59–97; PULSE 50–76; RESP 10–26; TEMP 36–36.7; O2SAT 93–100; BMI 23.3
--- NOTE | ~2023-11-24 | XR_ITS ---
EXAMINATION: XR PELVIS CLINICAL INFORMATION: Total hip arthroplasty. COMPARISON: Most recent pelvic radiograph dated 09/09/2023. TECHNIQUE: AP view of the pelvis. FINDINGS: Interval placement of a total right hip arthroplasty in expected anatomic alignment. No hardware fracture or dislocation. No radiopaque foreign body. Adjacent soft tissue emphysema related to surgery and lateral soft tissue zacarias. Redemonstration of a left total hip arthroplasty without evidence of complication. Phleboliths within the pelvis. XR/XR pelvis 1-2V IMPRESSION: Total right hip arthroplasty without evidence of complication.
--- NOTE | 2023-11-24 07:15 | PHA.MEDREC ---
Pharmacy Consult ? Medication Reconciliation Pharmacy has completed the medication reconciliation. Reviewed med rec done by nursing
[2023-11-24] MEDS: vancomycin HCL 1,000 MG in 0.9 % Sodium Chloride 250 ML 270 MG IV ×2 (07:34→18:17)
[2023-11-24] MEDS: Lactated Ringers 1,000 ML 100 ML IVCONT ×3 (07:37→21:42)
[2023-11-24] MEDS: oxyCODONE HCl ER 10 MG TAB.ER.12H PO ×2 (07:37→13:23)
--- NOTE | 2023-11-24 07:39 | MHC.SHP ---
Pre-Procedural Eval Section A - 24 Hr Update-Section A only Date of Service: 11/24/23 The patient is an INPATIENT: No Changes since office visit: No Cold of Flu in the past 2 weeks, No New Medical Problems, No Changes in Medication and No Patient answered all questions The patient has been examined within 24 hours of the surgical procedure. The History & Physical has been completed within 30 days and I have reviewed it.: Yes Section B - Complete if H&P > 30 days Chief Complaint: RTKA Allergies: Allergies Allergy/AdvReac Type Severity Reaction Status Date / Time Sulfa (Sulfonamide Allergy Intermediate Rash Verified 11/24/23 06:42 Antibiotics) Plan I have reviewed the history and physical and performed a pertinent physical examination on my patient. No changes have occurred unless specified. Time Spent With Patient Time: Total time managing care of this patient today ____ minutes.
--- NOTE | 2023-11-24 10:07 | P.BOP_ITS ---
Brief Operative Note Date of Service: 11/24/23 Pre-op diagnosis: Right hip OA Post-op diagnosis: same Procedure: Right AMIE Implants: Torri Trident multi hole 54 with 6.5 acetabular screws x 2 and 20 deg lipped liner Torri Accolade2 #6 132 deg with + 5 36 ceramic femoral head. Surgeon: Sammy Bautista MD Anesthesia: GETA and local Was an Client Services Account Manager used for this Procedure?: Yes Client Services Account Manager: Yane Harrington Estimated blood loss (mL): 300 IV fluids (mL): 1,000 Pathology: other Condition: stable Disposition: PACU
--- NOTE | 2023-11-24 10:13 | W.PM.OPN ---
Operative Note Operative Note Date of Service: 11/24/23 Narrative: Date of Service: 11/24/23 Pre-op diagnosis: Right hip OA Post-op diagnosis: same Procedure: Right AMIE Implants: [place] Trident multi hole 54 with 6.5 acetabular screws x 2 and 20 deg lipped liner [place] Accolade2 #6 132 deg with + 5 36 ceramic femoral head. Surgeon: Sammy Bautista MD Anesthesia: GETA and local Was an Gynaecological Oncologist used for this Procedure?: Yes Gynaecological Oncologist: Yane Harrington Estimated blood loss (mL): 300 IV fluids (mL): 1,000 Pathology: other Condition: stable Disposition: PACU Procedure in detail: Patient was brought into the operating room and placed in the left lateral decubitus position. All bony prominences were well padded and the limb was prepped and draped in standard sterile fashion. A time-out was called to identify proper site procedure proper surgeon IV antibiotics and 1 g of transaxemic acid were administered. I began by making a curvilinear incision over the posterolateral aspect of the greater trochanter. Dissection was taken down to the tensor fascia which was incised in line with the incision and a Charnley retractor was placed. Cautery was used to maintain hemostasis. The hip was internally rotated and the external rotators were identified. The vessels were cauterized and a full-thickness capsular/external rotator layer was developed starting just proximal to the piriformis. This layer was tagged and a dull Hohmann retractor was placed underneath the neck in the hip was dislocated. A neck cut was made 1 cm proximal to the lesser trochanter and the head and neck were removed and measured ~54 on the back table. Tte head was eburnated and deformed. I then removed the labrum and cauterized the fovea. There was superior wear and a diminutive posterior wall. I started with a 44 reamer and medialized to the inner table. I sequentially reamed up to a size 56 and impacted a 56mm cup at 45 degrees of inclination and 25 degrees of version. Tw0 30 mm acetabular screws were placed in the superior acetabnulum using standard AO technique. I then placed a 20 deg posterior lipped liner and turned my attention to the femur. I identified the piriformis insertion and used this as a starting point for my cl cutter. The medius tendon was protected with a Hibs retractor. A Charnley awl was inserted in the canal and a curved curette used to remove the lateral bone. I irrigated copiously. I then sequentially broached in the patient's natural version to a size 5 and placed my trial implants. I used a #6/132/+5 based on my pre-operative template and the contralateral side which was completed ~6 months ago. Using a trail head I took the hip through range of motion. I was satisfied with the stability. I removed all instrumentation and copiously irrigated. I placed my final femoral implant and again took the hip through range of motion and was satisfied with the stability and length. The final +5 implant was impacted in place and the hip reduced. I then irrigated copiously placed 1 g of local transaxemic acid. I performed a capsular closure with 2.0 fiberwire, Liyah's fascia with 0 Vicryl, subcuticular with 2-0 Vicryl and the skin with zacarias. Patient was placed into a sterile dressing. Patient was extubated brought to the recovery room in stable condition. There were no known complications.
[2023-11-24] MEDS: HYDROmorphone HCl 0.5 MG/0.5 ML SYRINGE 0.25 MG IVPUSH ×4 (10:27→10:42)
[2023-11-24] MEDS: HYDROmorphone HCl 1 MG/ML SYRINGE IVPUSH ×3 (10:47→11:37)
[2023-11-24] MEDS: ondansetron HCL 4 MG/2 ML VIAL IVPUSH (10:48)
[2023-11-24] MEDS: HYDROmorphone HCl 2 MG/ML VIAL IVPUSH (10:58)
[2023-11-24] MEDS: Celecoxib 200 MG CAPSULE PO ×2 (13:24→21:41)
--- NOTE | 2023-11-24 14:17 | PC.NURSE ---
Pt received from PACU very restless yelling out . Pt educated on hip precautions but continues to thrash around in bed . Was unable to participate with PT at this time . Pt has voided several times. Pt reports she on methadone goes to [facility] clinic on [facility] in [place] , clinic is currently closed unable to verify last dose at this time .
--- NOTE | 2023-11-24 15:21 | P.CONHOSP_ITS ---
History of Present Illness Data of Consult Service Date: 11/24/23 Requesting physician: Yane Harrington Primary Care Provider: MD LOUANN Araiza Reason for consult: medical management 53 year old woman with history of polysubstance abuse on methadone (last use 1+ years ago per patient), history of spinal epidural abscess with MRSA 01/18, hld, anxiety who is a current some day smoker admitted to orthopedic surgery for OA R hip with consult placed to hospitalist service for medical management. Upon entering room, patient is noted to be flailing legs while in bed. Reports diffuse pain but localizing the worst pain to epigastrium. States since her epidural abscess has had midline thoracic back pain that wrap around across the abdomen that is chronic but worse since the surgery. Advised she should keep her legs still given her surgery but continues flailing. She is very anxious appearing. She is hypertensive to 171/81, vitals otherwise stable. She has some nausea but no vomiting. Wants to eat and requesting gingerale. Review of Systems 2 Review of Systems: General: No fevers, malaise, unintentional weight loss HEENT: No blurred vision, diplopia. No sore throat, nasal congestion, rhinorrhea, sinus pain, ear pain Cardiovascular: No chest pain, palpitations, or leg edema Respiratory: No shortness of breath, wheezing, cough GI: +abdominal pain, +nausea. No vomiting, diarrhea, constipation, melena, hematochezia : No dysuria, hematuria, increased urinary frequency, decreased urinary output MSK: No myalgia. +back pain Neuro: No headaches, weakness, paresthesias Skin: No rashes or lesions PMF Medical History Hx MRSA infection Current smoker on some days Abscess PTSD (post-traumatic stress disorder) Anxiety Elevated cholesterol Bilateral primary osteoarthritis of hip Methadone dependence Polysubstance abuse Surgical History History of left hip replacement (06/15/23) History of repair of congenital cleft palate Social History Household Members: None Housing: Unknown / Unable to assess Are you a primary director career to a significant other at home: No Do you presently have visiting nurse or other home services: No Alcohol intake: never Patient Tobacco Use Status: Current everyday Tobacco user Tobacco use type: Cigarette Cigarettes Per Day: 4 Years Smoked: 40 Smoked in Last 30 Days: Yes e-Cigarette/Vaping Use: Never Used Patient Interested in Nicotine Replacement: No Patient Given Instructions on How to Stop Smoking: No Second Hand Smoke Exposure: No Use of substances other than those prescribed or required for medical reasons: No Substance Use Type: Marijuana Substance Use Type Other:: no heroin in 2 years Substance Use Frequency: Daily Currently Displaying Signs/Symptoms of Drug Intoxication Withdrawal: No Any prior treatment program specific to substance use: Yes (methadone) Have you been hit, kicked, punched, or otherwise hurt by someone within the past year? If so, by whom?: No Do you feel safe in your current relationship?: No Current Relationship Is there a partner from a previous relationship who is making you feel unsafe now?: No Are you made to feel afraid or neglected: No Are you DNR?: No Advance Directives: Yes Advance Directives Information Provided: Yes Advance Directives on File: Yes Advance Directives Date on File: 06/21/23 Do you have thoughts of harming others: None Do you have a plan to hurt others: No Plan Recently lost weight without trying: No Eating poorly because of decreased appetite: No Nutrition Risks: No Nutritional Risk Patient : No : No Poor oral hygiene: No service: No Current occupational status: unemployed Meds Allergies Allergy/AdvReac Type Severity Reaction Status Date / Time Sulfa (Sulfonamide Allergy Intermediate Rash Verified 11/24/23 06:42 Antibiotics) Active Medications: Current Medications Acetaminophen (Acetaminophen 325 Mg Tablet) 650 mg PO Q6H PRN PRN Reason: Pain, Mild (Pain Scale 1-3) Atorvastatin Calcium (Atorvastatin Calcium 80 Mg Tablet) 80 mg PO DAILY BRITTANY Celecoxib (Celecoxib 200 Mg Capsule) 200 mg PO BID [facility] Last Admin: 11/24/23 13:24 Dose: 200 mg Enoxaparin Sodium (Enoxaparin Sodium 40 Mg/0.4 Ml Syringe) 40 mg SUBCUT Q24H BRITTANY Hydromorphone HCl (Hydromorphone Hcl 1 Mg/Ml Syringe) 1 mg IVPUSH Q10M PRN; Protocol PRN Reason: Pain, Severe (Pain Scale 7-10) Last Admin: 11/24/23 11:37 Dose: 1 mg Hydromorphone HCl (Hydromorphone Hcl 0.5 Mg/0.5 Ml Syringe) 0.5 mg IVPUSH Q4H PRN; Protocol PRN Reason: Pain, Severe (Pain Scale 7-10) Lactated Ringer's (Lr) 1,000 mls @ 100 mls/hr IVCONT .Q10H [facility] Last Admin: 11/24/23 12:40 Dose: 100 mls/hr Vancomycin HCl 1,000 mg/ (Sodium Chloride) 270 mls @ 270 mls/hr IV POSTOP ONE Stop: 11/24/23 19:59 Lorazepam (Lorazepam 2 Mg/Ml Vial) 1 mg IVPUSH ONCE ONE Stop: 11/24/23 15:17 Methadone HCl (Methadone Hcl 20 Mg/2 Ml Oral.Conc) 115 mg PO DAILY [facility] Naloxone HCl (Naloxone Hcl 0.4 Mg/Ml Vial) 0.04 mg IVPUSH Q5M PRN PRN Reason: Respiratory Rate < 10 Oxycodone HCl (Oxycodone Hcl Immed Release 5 Mg Tablet) 10 mg PO Q4H PRN PRN Reason: Pain, Moderate(Pain Scale 4-6) Oxycodone HCl (Oxycodone Hcl Er 10 Mg Tab.Er.12h) 10 mg PO BID [facility] Last Admin: 11/24/23 13:23 Dose: 10 mg Sodium Chloride (0.9 % Sodium Chloride Flush 3 Ml Syringe) 3 ml IVFLUSH QSHIFT [facility] Last Admin: 11/24/23 14:28 Dose: Not Given Home Medications Medication Instructions Recorded Confirmed Last Taken Type methadone 10 mg/mL oral concentrate 115 mg PO DAILY 01/30/22 11/16/23 11/24/23 05:30 History rosuvastatin 20 mg tablet 20 mg PO DAILY 07/02/22 11/16/23 11/23/23 History ibuprofen 600 mg tablet 600 mg PO TID 11/16/23 11/16/23 11/18/23 History Physical Exam 2 Vital Signs and Narrative: Vital Signs: Last Vital Signs Temp 96.8 F 11/24/23 13:27 Pulse 63 11/24/23 13:45 Resp 16 11/24/23 13:27 BP 171/81 H 11/24/23 13:45 Pulse Ox 100 11/24/23 13:45 O2 Del Method Nasal Cannula 11/24/23 13:27 O2 Flow Rate 2.0 11/24/23 13:27 FiO2 29 11/24/23 12:02 BMI result Body Mass Index 23.3 Constitutional - Awake and Alert, flailing in bed, grimmacing Eyes - PERRLA, EOMI Cardiovascular - S1S2, RRR, No edema Respiratory - Normal lung expansion, Normal respiratory effort, No respiratory distress, CTA bilaterally Gastrointestinal - NT / ND; +BS; No rebound or guarding Extremities - no calf tenderness bilaterally, no swelling Musculoskeletal - will not allow palpation of the back Skin - Warm/Dry Neurological - Alert & oriented x3 Psychological - anxious appearing Results Labs 11/16/23 12:50 11/16/23 12:50 Imaging Radiologist's Impressions: Impressions Pelvis X-Ray 11/24/23 11:37 IMPRESSION: Total right hip arthroplasty without evidence of complication. Assessment and Plan (1) Primary osteoarthritis of right hip: Status: Acute Plan 53 year old woman with history of polysubstance abuse on methadone (last use 1+ years ago per patient), history of spinal epidural abscess with MRSA 01/18, hld, anxiety who is a current some day smoker admitted to orthopedic surgery for OA R hip with consult placed to hospitalist service for medical management. #OA R Hip s/p AMIE POD 0 -plan per ortho surgery -pain management per ortho surgery. Narcan prn ordered #Anxiety/aggitation -check utox -given ativan 1mg x1 #History polysubstance abuse with opioid dependence -continue methadone -utox pending #Elevated blood pressures -possibly r/t pain -will continue monitoring. Hold on initiating antihypertensives at this time to prevent post-op hypotension #HLD -statin #Chronic thoracic back pain -radiating around to abdomen- chronic following epidural abscess -offered lidocaine patch, patient refused. Pain management as above Thank you for this consult. We will continue following.
[2023-11-24] MEDS: LORazepam 2 MG/ML VIAL 1 MG IVPUSH (15:39)
--- NOTE | 2023-11-24 16:08 | PC.NURSE ---
Pt's behavior is odd, anxious, uncooperative restless and thrashing in bed . Ativan given as per orders see MAR . will monitor
[2023-11-24 16:35] LABS: Amphetamine Screen Urine Not Detected (Not Detect); Barbiturates, Urine Not Detected (Not Detect); Benzodiazepines Screen Urine POSITIVE (Not Detect); Cannabinoid Screen Urine POSITIVE (Not Detect); Cocaine Screen Urine Not Detected (Not Detect); Fentanyl, urine POSITIVE (Not Detect); Opiate Screen Urine POSITIVE (Not Detect); Phencyclidine Screen Urine Not Detected (Not Detect)
[2023-11-25 04:00] VITALS: BP 111/56; PULSE 70; RESP 16; TEMP 37.1
[2023-11-25 06:59] LABS: MANUAL DIFF FLAG NO
[2023-11-25 07:04] LABS: Hematocrit 27.6 % (37.0-47.0); Hemoglobin 9.3 g/dl (12.0-16.0); Imm Gran Abs Auto 0.03 X10*3/uL (0.00-0.03); Imm Gran Pct Auto 0.3 % (0.0-0.4); Lymphocytes Absolute Auto 1.3 X10*3/uL (1.2-4.9); Lymphocytes Percent Auto 12.1 % (20-40); Mean Corpuscular HGB Conc 33.7 g/dl (31.0-35.0); Mean Corpuscular Hemoglobin 29.2 pg (27.0-33.0); Mean Corpuscular Volume 86.8 fL (80.0-98.0); Mean Platelet Volume 10.5 fL (9.4-12.3); Monocytes Percent Auto 9.6 % (2-11); Neutrophils Absolute Auto 8.3 x10*3/uL (2.0-8.3); Platelet Count 196 X10*3/uL (160-400); Red Blood Count 3.18 X10*6/uL (4.20-5.50); Red Cell Distribution Width 14.5 % (11.0-16.0); White Blood Count 10.6 X10*3/uL (4.8-10.8)
[2023-11-25 07:15] LABS: Anion Gap 13 (12-20); Blood Urea Nitrogen 14 mg/dL (9-16); Carbon Dioxide 26 mmol/L (22-29); Chloride 104 mmol/L (96-108); Creatinine Clr Calc Pharmacy 76.2; Estimated Glomerular Filt Rate > 60; Glucose Fasting 142 mg/dL (60-99); Potassium 4.1 mmol/L (3.3-5.1); Sodium 139 mmol/L (135-145)
[2023-11-25 07:32] VITALS: BP 111/54; PULSE 71; RESP 16; TEMP 37.3; O2SAT 96
[2023-11-25 08:24] VITALS: BP 111/54; PULSE 71; O2SAT 96
[2023-11-25] MEDS: Enoxaparin Sodium 40 MG/0.4 ML SYRINGE SUBCUT (08:32)
[2023-11-25] MEDS: Celecoxib 200 MG CAPSULE PO (08:32)
[2023-11-25] MEDS: Acetaminophen 325 MG TABLET 650 MG PO (08:32)
[2023-11-25] MEDS: Atorvastatin Calcium 80 MG TABLET PO (08:32)
[2023-11-25] MEDS: 0.9 % Sodium Chloride Flush 3 ML SYRINGE IVFLUSH (08:33)
--- NOTE | 2023-11-25 09:03 | P.DS_ITS ---
DS: Providers Provider Date of Service: 11/25/23 Date of admission: 11/24/23 06:36 Primary care physician: Sydney Graham MD Consults: 11/24/23 12:35 Consult to Hospitalist Routine Comment: Consulting Provider: Hospitalist Reason For Exam: Routine medical management DS: Diagnosis Discharge Diagnosis (1) Primary osteoarthritis of right hip: Status: Acute DS: Summary Hospital Course Hospital Course: The patient underwent a successful right total hip arthroplasty, they were transferred to PACU and then to the floor to recover. During their stay, their vitals were stable, afebrile at 99.2. Labs were unremarkable, H/H 9.7/30.5. POD 1 they were started on Lovenox for DVT ppx, they also received Physical Therapy services twice a day. Prior to discharge, their dressing was clean dry and inta ct and the plan was to be discharged home with VNA services. Time Attestation Discharge Coordination Time (in mins): 30 Quality: Safe Use of Opioids Does Pt have an Active Cancer Diagnosis on the Problem List?: No Quality: Stroke Does the patient have a stroke diagnosis?: No Physical Exam Vital Signs: Vital Signs: Last Vital Signs Temp 99.2 F 11/25/23 07:32 Pulse 71 11/25/23 08:24 Resp 16 11/25/23 07:32 BP 111/54 L 11/25/23 08:24 Pulse Ox 96 11/25/23 08:24 O2 Del Method Room Air 11/25/23 07:32 O2 Flow Rate 2.0 11/24/23 13:27 FiO2 29 11/24/23 12:02 BMI result Body Mass Index 23.3 Const: General: cooperative, healthy appearing and no acute distress Resp: Effort & Inspection: normal respiratory effort and able to speak in c omplete sentences Cardio: Rate: regular rate Peripheral pulses: Peripheral pulses 2+ throughout GI: Palpation (GI): Soft to palpation Skin: Lesions: no lesions Rashes: no rashes Extrem: Other: Right hip dressing is c/d/i. Able to dorsi/plantar flex. Calf is supple and nontender. Sensation intact. Pedal pulse intact. DS: Data Data Completed and Pending Completed studies during hospitalization [Text1]: Procedures Insertion of Infusion Device into Superior Vena Cava, Percutaneous Approach (01/29/22) Replacement of Left Hip Joint with Ceramic Synthetic Substitute, Uncemented, Open Approach (06/15/23) Ultrasonography of Superior Vena Cava, Guidance (01/29/22) Pending studies at discharge: Pending at discharge 11/24/23 09:51 Surgical [PTH] Routine Labs on day of discharge: Laboratory Results - last 24 hr 11/24/23 11/25/23 16:00 06:52 WBC 10.6 RBC 3.18 L D Hgb 9.3 L D Hct 27.6 L D MCV 86.8 MCH 29.2 MCHC 33.7 RDW 14.5 Plt Count 196 D MPV 10.5 Immature Gran % (Auto) 0.3 Neut % (Auto) 78.0 H Lymph % (Auto) 12.1 L [place] % (Auto) 9.6 Eos % (Auto) 0.0 Baso % (Auto) 0.0 Lymph # (Auto) 1.3 [place] # (Auto) 1.0 Eos # (Auto) 0.0 Baso # (Auto) 0.0 Abs Immat Gran (auto) 0.03 Absolute Neuts (auto) 8.3 Absolute Nucleated RBC 0.000 Nucleated RBC % (auto) 0.0 Sodium 139 Potassium 4.1 Chloride 104 Carbon Dioxide 26 Anion Gap 13 BUN 14 Creatinine 0.75 Estim Creat Clear Calc 76.2 Estimated GFR > 60 Fasting Glucose 142 H Calcium 9.0 Urine Opiates Screen POSITIVE H Urine Fentanyl Screen POSITIVE H Ur Barbiturates Screen Not Detected Ur Phencyclidine Scrn Not Detected Ur Amphetamines Screen Not Detected U Benzodiazepines Scrn POSITIVE H Urine Cocaine Screen Not Detected U Marijuana (THC) Screen POSITIVE H Discharge Plan Discharge Anticipated Discharge Date/Time: 11/25/23 08:59 Patient Disposition: Home Health Service Discharge Diagnosis: s/p RTHA Referrals: Yane Harrington PA-C [Physician Prevention Rn] - 12/08/23 11:00 am Discharge Medications: New celecoxib 200 mg Capsule 200 mg PO BID 30 Days Qty: 60 0RF acetaminophen 325 mg Tablet 650 mg PO Q6H PRN (Reason: Pain, Mild (Pain Scale 1-3)) 30 Days Qty: 240 0RF enoxaparin 40 mg/0.4 mL Syringe 40 mg subcut Q24H 42 Days Qty: 16.8 0RF oxycodone 10 mg tablet 10 mg PO Q4H PRN (Reason: Pain, Moderate(Pain Scale 4-6)) 7 Days Qty: 42 0RF Rx Instructions: Partial Fill upon patient request. Continued (DME) walker [facility] [place] See Rx Instructions .MEDSUPPLY Qty: 1 0RF Rx Instructions: Folding Front wheeled walker (DME) Elevated toilet seat See Rx Instructions .Route .MEDSUPPLY Qty: 1 0RF Rx Instructions: duration-lifetime methadone 10 mg/mL Concentrate 115 mg PO DAILY Patient Comments: patient DC'd yesterday (02/04/22) ibuprofen 600 mg tablet 600 mg PO TID rosuvastatin 20 mg tablet 20 mg PO DAILY (DME) SHOWER CHAIR See Rx Instructions .ROUTE .MEDSUPPLY Qty: 1 0RF Rx Instructions: As directed (DME) Grab Bar See Rx Instructions .ROUTE .MEDSUPPLY Qty: 1 0RF Rx Instructions: As directed Discharge Orders: Discharge Order (Routine); Ordered 11/25/23 Ordered By: Yane Harrington Diet: Advance to usual diet Activity on Discharge: Use cane or walker Stand Alone Forms: Patient Portal Discharge page Activity Restrictions/Additional Instructions: Physical Therapy for total hip arthroplasty: posterior precautions, gait training, ROM, strength Limit stair climbing No showering, no tub bath-keep dressing clean, dry and intact No driving x6 weeks Continue Lovenox x 6 weeks Follow up with [facility] in 2 weeks Care Plan Goals: restore fxn to the right hip Health Concerns: none Plan of Treatment: as above Assessment: stable for d/c
--- NOTE | 2023-11-25 09:05 | W.MHC.F2F ---
Service Date Service Date: 11/25/23 Encounter Date of encounter: 11/25/23 Reasons for Services Signs and symptoms assessed: s/p RTHA Pt. is considered homebound due to recent surgery. Unable to drive, poor balance, poor gait mechanics. Reason for physical therapy: home safety and mobility, therapeutic exercises, restore joint function, gait/transfer training, assess need for DME and ADL training Reason for occupational therapy: home safety and mobility, therapeutic exercises, restore joint function, gait/transfer training, assess need for DME and ADL training Homebound: Leaving the home is medically contraindicated at this time without the asist of a device and/or another person due th the listed conditions above and below. Reason homebound: unsteady gait / fall risk, leg weakness, pain with ambulation, pain with transfers, poor balance / fall risk and unable to drive Certification: Based on the above findings, I certify that this patient is confined to the home and needs intermittent mcfp care, physical therapy and/or speech therapy, or continues to need occupational therapy. The patient is under my care, and I have initiated the establishment of the plan of care. The patient will be followed by a physician who will periodically review the plan of care. Time Spent With Patient Time: Total time managing care of this patient today ____ minutes.
--- NOTE | 2023-11-25 09:08 | MHC.CM.PN ---
PT REPORTS SHE LIVES ALONE AND IS INDEPENDENT WITH CARE AT BASELINE SHE SAYS SHE HAS A WALKER, CANE, CRUTCHES AND TUB BENCH FROM HER HIP SURGERY LAST YEAR PT REPORTS SHE IS ACTIVE WITH [facility], SHE HAS NO OTHER SERVICES PT REPORTS SHE WENT TO [facility] YESTERDAY AND DOSED BEFORE COMING IN TO [facility], SHE PLANS TO GO DIRECTLY TO THE CLINIC AT [place] TO DOSE AND BENCH HAND HER TAKE HOME BOTTLES. SHE REPORTS SHE GETS A WEEKS WORTH OF TAKE HOMES SO WILL NOT HAVE TO GO BACK OUT AGAIN UNTIL NEXT WEDNESDAY. PT IS AWARE SHE WILL HAVE HOME PT AND SAYS SHE ALREADY HAS AN OUTPATIENT PT APPT FOR TWO WEEKS PT COMPLETED A NEW HCP TODAY NAMING HER DAUGHTER, GRACIELA HER AGENT PCP: EDMUND SANDHU PT WILL DC HOME TODAY WITH [facility] FOR HOME PT AND RESUMPTION OF MMTP AT [facility] PT WILL ARRANGE TRANSPORT
--- NOTE | 2023-11-25 09:40 | HO.PM.IMPN ---
Subjective Subjective Date of Service: 11/25/23 Interval History: pain much better controlled and BP normalized Review of Systems Review of Systems: Yes all other systems are reviewed and are negative Physical Exam Vital Signs: Vital Signs: Last Vital Signs Temp 99.2 F 11/25/23 07:32 Pulse 71 11/25/23 08:24 Resp 16 11/25/23 07:32 BP 111/54 L 11/25/23 08:24 Pulse Ox 96 11/25/23 08:24 O2 Del Method Room Air 11/25/23 07:32 O2 Flow Rate 2.0 11/24/23 13:27 FiO2 29 11/24/23 12:02 BMI result Body Mass Index 23.3 Gen: in no acute distress HEENT: sclera anicteric, moist mucus membranes Neck: supple Lungs: clear to auscultation bilaterally Heart: regular rate and rhythm, no murmurs Abd: soft, non-tender, non-distended Ext: no edema Skin: warm/well-perfused, R hip dressing dry Neuro: alert and oriented x3, no focal findings Psych: appropriate affect Objective Data Active Medications Acetaminophen (Acetaminophen 325 Mg Tablet) 650 mg PO Q6H PRN PRN Reason: Pain, Mild (Pain Scale 1-3) Last Admin: 11/25/23 08:32 Dose: 650 mg Documented By: MILTON Atorvastatin Calcium (Atorvastatin Calcium 80 Mg Tablet) 80 mg PO DAILY [facility] Last Admin: 11/25/23 08:32 Dose: 80 mg Documented By: MILTON Celecoxib (Celecoxib 200 Mg Capsule) 200 mg PO BID [facility] Last Admin: 11/25/23 08:32 Dose: 200 mg Documented By: MILTON Enoxaparin Sodium (Enoxaparin Sodium 40 Mg/0.4 Ml Syringe) 40 mg SUBCUT Q24H [facility] Last Admin: 11/25/23 08:32 Dose: 40 mg Documented By: MILTON Hydromorphone HCl (Hydromorphone Hcl 0.5 Mg/0.5 Ml Syringe) 0.5 mg IVPUSH Q4H PRN; Protocol PRN Reason: Pain, Severe (Pain Scale 7-10) Lactated Ringer's (Lr) 1,000 mls @ 100 mls/hr IVCONT .Q10H [facility] Last Infusion: 11/25/23 08:09 Dose: Infused Documented By: MILTON Lidocaine (Lidocaine 4 % Patch Adh..Patch) 1 patch TRANSDERMA DAILY [facility]; Protocol Last Admin: 11/25/23 08:33 Dose: Not Given Documented By: MILTON Non-Admin Reason: Patient Refused Methadone HCl (Methadone Hcl 20 Mg/2 Ml Oral.Conc) 115 mg PO DAILY [facility] Naloxone HCl (Naloxone Hcl 0.4 Mg/Ml Vial) 0.04 mg IVPUSH Q5M PRN PRN Reason: Respiratory Rate < 10 Oxycodone HCl (Oxycodone Hcl Immed Release 5 Mg Tablet) 10 mg PO Q4H PRN PRN Reason: Pain, Moderate(Pain Scale 4-6) Oxycodone HCl (Oxycodone Hcl Er 10 Mg Tab.Er.12h) 10 mg PO BID [facility] Last Admin: 11/25/23 08:38 Dose: Not Given Documented By: MILTON Non-Admin Reason: Patient Refused Sodium Chloride (0.9 % Sodium Chloride Flush 3 Ml Syringe) 3 ml IVFLUSH QSHIFT [facility] Last Admin: 11/25/23 08:33 Dose: 3 ml Documented By: MILTON Labs 11/25/23 06:52 11/25/23 06:52 Labs: Laboratory Results - last 24 hr 11/24/23 11/25/23 16:00 06:52 MCV 86.8 MCH 29.2 MCHC 33.7 RDW 14.5 Plt Count 196 D MPV 10.5 Immature Gran % (Auto) 0.3 Neut % (Auto) 78.0 H Lymph % (Auto) 12.1 L [place] % (Auto) 9.6 Eos % (Auto) 0.0 Baso % (Auto) 0.0 Lymph # (Auto) 1.3 [place] # (Auto) 1.0 Eos # (Auto) 0.0 Baso # (Auto) 0.0 Abs Immat Gran (auto) 0.03 Absolute Neuts (auto) 8.3 Absolute Nucleated RBC 0.000 Nucleated RBC % (auto) 0.0 Anion Gap 13 Estim Creat Clear Calc 76.2 Estimated GFR > 60 Fasting Glucose 142 H Calcium 9.0 Urine Opiates Screen POSITIVE H Urine Fentanyl Screen POSITIVE H Ur Barbiturates Screen Not Detected Ur Phencyclidine Scrn Not Detected Ur Amphetamines Screen Not Detected U Benzodiazepines Scrn POSITIVE H Urine Cocaine Screen Not Detected U Marijuana (THC) Screen POSITIVE H Assessment and Plan (1) Primary osteoarthritis of right hip: Status: Acute (2) Status post total hip replacement, left: Status: Acute Plan d2 53yo M with hx polysubstance abuse now on methadone and without abuse x 1 yr, hx MRSA SEA December 2021, HLD, anxiety, tobacco abuse s/p R AMIE POD#1, hospitalist consult for routine medical mgmt s/p AMIE - pain mgmt adequate - LMWH x 30d postop acute blood loss anemia - related to surgery, above transfusion threshold anxiety - resolved elevated BP without HTN - resolved OUD - methadone HLD - statin chronic thoracic pain - related to prior SEA, refused lidocaine patch Thank you for this consultation. We are signing off the case at this time. Please communicate with us if any new medical questions arise. Total time managing care of this patient today: 35 minutes. Quality Stroke Does the patient have a stroke diagnosis?: No VTE Prior VTE?: No VTE Risk Level:: Medical - moderate - high VTE Device Contraindication: N/A - Device Ordered VTE Drug Contraindication: N/A - Med Ordered
--- NOTE | 2023-11-25 15:00 | HO.POSTANES ---
Post Anesthesia Evaluation Post Anesthesia Evaluation Date of Service: 11/25/23 Vital Signs: Vital Signs Temp Pulse Resp BP Pulse Ox O2 Del Method 11/25/23 08:24 71 111/54 L 96 11/25/23 07:32 99.2 F 71 16 111/54 L 96 Room Air 11/25/23 04:00 98.8 F 70 16 111/56 L Anesthesia: General Mental Status: Awake Pain Control: Satisfactory Nausea/Vomiting: None Hydration: Adequate Anesthesia-Related Issues: No Anes. Related Issues
== END 2023-11-25 09:46 | disposition home health service (06) | DRG 324 ==
LOC: HO.SSSA 07:01 → HO.S3 09:31
PROVIDERS: Nurse Practitioner; Orthopaedic Surgery; Physician Assistant; Admitting Provider Physician Assistant; PCP Internal Medicine; Visit Provider Physician Assistant
PROC: 0SR903A Replacement of Right Hip Joint with Ceramic Synthetic Substitute, Uncemented, Open Approach (ICD-10-PCS; CPT 27130; principal; 2023-11-24 08:30)
DX: M16.11 Unilateral primary osteoarthritis, right hip (principal); D62 Acute posthemorrhagic anemia; E78.5 Hyperlipidemia, unspecified; R03.0 Elevated blood-pressure reading, without diagnosis of hypertension; F11.20 Opioid dependence, uncomplicated; F17.210 Nicotine dependence, cigarettes, uncomplicated; F19.10 Other psychoactive substance abuse, uncomplicated; F41.9 Anxiety disorder, unspecified; G89.29 Other chronic pain; M54.6 Pain in thoracic spine; Z86.14 Personal history of Methicillin resistant Staphylococcus aureus infection; Z71.6 Tobacco abuse counseling; Z79.899 Other long term (current) drug therapy
CPT/HCPCS: 36415; 72170; 80048; 80307; 85025; 85027; 86850; 86900; 86901; 87640; 87641; 88304; 88311; 97116; 97162; 97166; 97530; C1713; C1776; J0131; J1100; J1170; J1650; J1885; J2060; J2250; J2405; J2550; J2704; J2795; J3010; J3370; J7120

== ENCOUNTER → 2023-11-24 06:36 | Outpatient (BNV) | payer MEDICAID, SELFPAY | PROVIDERS: Admitting Provider Physician Assistant; PCP Internal Medicine; Visit Provider Orthopaedic Surgery | DX: M16.11 Unilateral primary osteoarthritis, right hip (principal) | CPT/HCPCS: 27130; 99238; G0180 ==

== ENCOUNTER → 2023-11-24 06:36 | Outpatient (BNV) | payer MEDICAID, SELFPAY | PROVIDERS: Admitting Provider Physician Assistant; PCP Internal Medicine; Visit Provider Physician Assistant | DX: M16.11 Unilateral primary osteoarthritis, right hip (principal); Z96.642 Presence of left artificial hip joint | CPT/HCPCS: 99222; 99231 ==

== ENCOUNTER 2023-12-09 09:09 | Outpatient (REF) | payer MEDICAID, SELFPAY ==
--- NOTE | ~2023-12-09 | XR_ITS ---
EXAMINATION: XR PELVIS CLINICAL INFORMATION: Pain in unspecified hip. COMPARISON: 11/24/2023 TECHNIQUE: 2 AP views of the pelvis. FINDINGS: Degenerative changes in the imaged lower lumbar spine. Mild degenerative changes in the bilateral sacroiliac joints. Pubic symphysis is maintained. Redemonstration of bilateral total hip arthroplasties. Hardware appears intact. Alignment unchanged. Surgical zacarias adjacent to the right hip. XR/XR pelvis 1-2V IMPRESSION: Redemonstration of bilateral total hip arthroplasties. Hardware appears intact.
== END 2023-12-09 09:10 | disposition home or self-care (01) ==
LOC: HO.HOSX 09:09
PROVIDERS: Visit Provider Physician Assistant
DX: M25.551 Pain in right hip (principal); Z47.1 Aftercare following joint replacement surgery; Z96.641 Presence of right artificial hip joint
CPT/HCPCS: 72170; 99212

== ENCOUNTER 2023-12-09 12:13 | Outpatient (AMB) | payer MEDICAID, SELFPAY ==
--- NOTE | 2023-12-09 12:31 | A.OFFVIS_ITS ---
Intake Intake Visit Reasons: post op right AMIE 11/24/23 with NE Intake Note: Noemí is a 53 year old female who presents today for a post op appointment s/p right AMIE 11/24/23 NE. Patient reports she is doing well and she feels that it is doing better than before. No other concerns. Allergies Sulfa (Sulfonamide Antibiotics) Allergy (Intermediate, Verified 12/09/23 12:32) Rash HPI post op right AMIE 11/24/23 with NE HPI Details 53-year-old female who presents in the o ffice today 15 days status post right total hip arthroplasty, which was performed on 11/24/[address] Bautista. While in the office today the patient reports she is doing well and is feeling better than before. She has no other concerns. [facility] Medical History Hx MRSA infection Current smoker on some days Abscess PTSD (post-traumatic stress disorder) Anxiety Elevated cholesterol Bilateral primary osteoarthritis of hip Methadone dependence Polysubstance abuse Surgical History History of left hip replacement (06/15/23) History of repair of congenital cleft palate Social History Household Members: None Housing: Unknown / Unable to assess Are you a primary certified social workers in health care to a significant other at home: No Do you presently have visiting nurse or other home services: No Alcohol intake: never Patient Tobacco Use Status: Current everyday Tobacco user Tobacco use type: Cigarette Cigarettes Per Day: 4 Years Smoked: 40 e-Cigarette/Vaping Use: Never Used Second Hand Smoke Exposure: No Substance Use Type: Marijuana Advance Directives Date on File: 06/21/23 service: No Current occupational status: unemployed Review of Systems Const All systems reviewed & are unremarkable except as noted in HPI and below Physical Exam Const General: cooperative, healthy appearing and no acute distress Resp Effort & Inspection: normal respiratory effort and able to speak in complete sentences Cardio Rate: regular rate Peripheral pulses: Peripheral pulses 2+ throughout GI Palpation (GI): Soft to palpation Skin Lesions: no lesions Rashes: no rashes Extrem Other: Walking comfortably No pain with hip range of motion Incision clean dry and intact Assessment & Plan Assessment & Plan (1) Status post total replacement of right hip: Code(s): Z96.641 - Presence of right artificial hip joint Plan: Doing well 2 weeks status post right hip replacement. Continue chemo prophylaxis with Lovenox follow-up in 4 weeks. Continue physical therapy. Orders: Orders XR pelvis 1-2V Today M25.559 - Pain in unspecified hip Patient Instructions: Scribed by Daphnie Fonseca medical imaging technologist, for Yane Harirngton PA-C on 12/09/2023 at 12:37 pm, EST. Coding Level of Care Code Est Pt Level 3 (23823) Global (06934) Diagnoses Status post total replacement of right hip Z96.641
== END 2023-12-09 12:47 | disposition home or self-care (01) ==
PROVIDERS: PCP Internal Medicine; Visit Provider Orthopaedic Surgery
DX: Z47.1 Aftercare following joint replacement surgery (principal); Z96.641 Presence of right artificial hip joint
CPT/HCPCS: 99024

== ENCOUNTER 2023-12-30 10:20 | Outpatient (REF) | payer MEDICAID, SELFPAY | END 2023-12-30 10:21 | disposition home or self-care (01) | LOC: HO.HOSX 10:20 | PROVIDERS: Visit Provider Orthopaedic Surgery | DX: Z13.89 Encounter for screening for other disorder (principal) ==